=== PATIENT | female | born 1975 | race Caucasian/White ===

== ENCOUNTER → 2017-12-14 10:03 | Outpatient (CLI) | payer BC, SELFPAY ==
--- NOTE | 2017-12-14 10:15 | RAD_ITS ---
STUDY: X-RAY - LEFT TIBIA AND FIBULA REASON FOR EXAM: Female, 42 years old. Sprain of the lower extremity 2 weeks ago. TECHNIQUE: 3 view(s) of the tibia and fibula were obtained. COMPARISON: None. FINDINGS: Normal visualized tibia. Normal visualized fibula. The soft tissue structures are unremarkable. RAD/Tibia & Fibula 2 Views IMPRESSION: No significant abnormality. Electronically Signed: Jacky Mcguire MD at 16:51 EST , Service support ,
== END ==
PROVIDERS: Family Provider Student in an Organized Health Care Education/Training Program; PCP Student in an Organized Health Care Education/Training Program; Visit Provider Podiatrist
DX: S82.832A Other fracture of upper and lower end of left fibula, initial encounter for closed fracture (principal); X58.XXXA Exposure to other specified factors, initial encounter; Y93.9 Activity, unspecified; Y92.9 Unspecified place or not applicable; Y99.9 Unspecified external cause status
CPT/HCPCS: 73590

== ENCOUNTER → 2018-01-30 17:47 | Outpatient (CLI) | payer BC, SELFPAY ==
--- NOTE | 2018-01-30 18:12 | MRI_ITS ---
STUDY: MRI LEFT ANKLE WITHOUT CONTRAST REASON FOR EXAM: Female, 43 years old. Ankle sprain 3 months ago with persistent pain. TECHNIQUE: Standardized fat and water weighted pulse sequences were obtained in all 3 orthogonal planes. COMPARISON: None. FINDINGS: Normal subcutis adipose space. Normal posterior tibialis tendon. Normal flexor digitorum longus tendon. Normal flexor hallucis longus tendon. Normal peroneus longus and brevis tendons. Normal tibialis anterior tendon. Normal extensor hallucis longus tendon. Normal extensor digitorum longus tendons. Normal Achilles tendon and teno-osseous insertion. Normal plantar fascia. Normal plantar calcaneal tubercles. Normal intrinsic muscles of the rearfoot. Normal distal tibiofibular syndesmotic ligamentous complex. Normal lateral ligamentous complex. Normal subtalar ligaments and sinus tarsi. Normal deltoid ligamentous complexes. There is a joint effusion of the tibiotalar articulation with capsular distension. There is abnormal signal within the medial talus suggesting sequela of bone contusion. The talar dome is within normal limits. There appears to be abnormal signal within the anterior calcaneus and the posterior cuboid also probably related to small contusions. The tarsal bones otherwise have a normal appearance. Visualized metatarsals have a grossly normal appearance. Normal subtalar articulations. Normal talonavicular articulation. Normal calcaneocuboid articulation. Normal navicular-cuneiform articulations. MRI/Lower Ext Joint Only (Routine) IMPRESSION: Abnormal signal within the lateral talus, anterior calcaneus and posterior cuboid suggest sequela of bone contusions. Electronically Signed: April Valadez MD at 9:15 EDT , Service support ,
== END ==
PROVIDERS: Family Provider Student in an Organized Health Care Education/Training Program; PCP Student in an Organized Health Care Education/Training Program; Visit Provider Podiatrist
DX: M25.373 Other instability, unspecified ankle (principal); M25.579 Pain in unspecified ankle and joints of unspecified foot; M93.279 Osteochondritis dissecans, unspecified ankle and joints of foot
CPT/HCPCS: 73721

== ENCOUNTER 2018-02-13 17:30 | Outpatient (RCR) | payer BC, SELFPAY ==
--- NOTE | 2018-01-23 19:00 | HP.PTEVAL ---
Patient's Visit Information SAAD VILLAFANA is a 43 year old F referred to Physical Therapy by EVELIO Alberts with a diagnosis of L ankle instability, sinus tarsitis, anterior impingement of the ankle. Date of Evaluation: 01/23/18 Physical Therapist: Winsome King - Visit Plan Frequency: 2-3x /Week Duration: 6 Weeks Plan: 2-3X/ week for 4-6 weeks for L ankle stretching, strengthing, gait training, balance and proprioception with HEP and modalities PRN. (possible compression dressing) - Subjective Subjective: Pt reports that the end of Oct she missed a step and down she went and sprained it pretty well. It was black and blue and had a knot on the side of it. She was in a Cam walker and she has abrace that she takes off at the end of the day because it drives her nuts because it is rubbing and her foot starts to swell. Pt is having an MRI next week because it is still swelling. 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 They also think she did something to her knee so she is going to [facility] for that. He knee starts to bother her if she keeps it propped up too long. SHe can not walk long distances. She tries to get out of grocery as fast as she can because she is limping when it is done. Pt is on a weightloss program but she can not walk a lot right now. She is not having N&T as a rule. She is doing the ABC's, she is doing gastroc stretches and her band is now tied into knots. She walks stairs with a handrail. She sleeps good unless it is kicked. - Pain L ankle pain Pain Intensity (Out of 10): 3 Pain Intensity Range: 8 - Objective L: 5 degrees DF and 40 degrees PF, 7 INV and 7 EV. R: 4 degrees DF, 65 degrees PF, 27 degrees INV, 9 degrees EV. L ankle MMT: DF 3+/5, PF 4-/5, Ev 4/5, INV 3+/5. R ankle MMT: 4+/5 all planes (DF, PF, INV, EV). Gait: decrease stance time on the L ankle with B forefoot abd. Tight gastroc B. Pt is able to heel and toe raise but decreased ROM and increased pain. L ankle girth meansurements (med to lat mal, figure 8, met heads): 25.2cm, 63.1cm,25cm. and R 24.3 cm, 52 cm and 21.5 cm - Goals Goal 1:: I HEP Goal Time Frame: 4-6 Weeks Goal 2:: Walk without an antalgic gait Goal Time Frame: 4-6 Weeks Goal 3:: Increas L ankle strength to 4+/5 all planes Goal Time Frame: 4-6 Weeks - Rehabilitation Potential Rehabilitation Potential: Good - Anticipated Interventions Patient/Client Instruction: Educate patient on: Condition, Plan of Care For the Purpose of:: To decrease pain, To decrease swelling/inflammation, To increase ROM, To improve nutrient delivery to tissue, To increase oxygenation perfusion, To improve muscle performance and motor function, To improve ability to perform ADL's, To increase tolerance to activity/condition/position, To decrease level of supervision to perform tasks, To improve ability of physical actions for home/community/work/leisure, To improve gait and locomotor functions, To improve health of tissue, To decrease soft tissue restriction, To increase flexibility/ROM, To improve balance Therapeutic Exercise to Include: Strength training, Balance training, Flexibilty training, Passive ROM, Active ROM For the Purpose of:: To decrease pain, To decrease swelling/inflammation, To increase ROM, To improve nutrient delivery to tissue, To improve muscle performance and motor function, To improve ability to perform ADL's, To increase tolerance to activity/condition/position, To improve performance and independence with ADL's, To improve ability of physical actions for home/community/work/leisure, To improve gait and locomotor functions, To improve health of tissue, To decrease soft tissue restriction, To increase flexibility/ROM, To improve balance Functional Training to Include: Gait training For the Purpose of:: To improve gait and locomotor functions Manual Therapy Techniques to Include: Passive ROM, Soft tissue mobilization For the Purpose of:: To increase ROM, To improve nutrient delivery to tissue IF ES: Yes Cryotherapy (ice pack, ice massage): Yes Ultrasound (thermal/non thermal): Yes For the Purpose of:: To decrease pain, To decrease swelling/inflammation, To increase ROM, To improve nutrient delivery to tissue, To improve muscle performance and motor function Thank you for the opportunity to evaluate your patient. For Medicare and Medicare HMO plans, please review the plan of care and approve it. It will need to be FAXED BACK to us at [phone] for Medicare purposes. Please let me know if there are questions or concerns regarding this plan of care. Physician Signature: Date:
--- NOTE | 2018-07-03 17:40 | HP.PTDCNRP_ITS ---
HP - Discharge Summary (1) - Patient Information SAAD VILLAFANA was seen in my office for initial evaluation on 01/23/18. The following Plan of Care was established for this patient: Initial Frequency: 2-3x /Week Initial Duration: 6 Weeks - Anticipated Interventions Patient/Client Instruction: Educate patient on: Condition, Plan of Care For the Purpose of:: To decrease pain, To decrease swelling/inflammation, To increase ROM, To improve nutrient delivery to tissue, To increase oxygenation perfusion, To improve muscle performance and motor function, To improve ability to perform ADL's, To increase tolerance to activity/condition/position, To decrease level of supervision to perform tasks, To improve ability of physical actions for home/community/work/leisure, To improve gait and locomotor functions , To improve health of tissue, To decrease soft tissue restriction, To increase flexibility/ROM, To improve balance Therapeutic Exercise to Include: Strength training, Balance training, Flexibilty training, Passive ROM, Active ROM For the Purpose of:: To decrease pain, To decrease swelling/inflammation, To increase ROM, To improve nutrient delivery to tissue, To improve muscle performance and motor function, To improve ability to perform ADL's, To increase tolerance to activity/condition/position, To improve performance and independence with ADL's, To improve ability of physical actions for home/ community/work/leisure, To improve gait and locomotor functions, To improve health of tissue, To decrease soft tissue restriction, To increase flexibility/ ROM, To improve balance Functional Training to Include: Gait training For the Purpose of:: To improve gait and locomotor functions Manual Therapy Techniques to Include: Passive ROM, Soft tissue mobilization For the Purpose of:: To increase ROM, To improve nutrient delivery to tissue IF ES: Yes Cryotherapy (ice pack, ice massage): Yes Ultrasound (thermal/non thermal): Yes For the Purpose of:: To decrease pain, To decrease swelling/inflammation, To increase ROM, To improve nutrient delivery to tissue, To improve muscle performance and motor function This patient was last seen in our office 02/13/18. Pertinent comments regarding their Physical therapy will appear below: DC PT as pt did not reschedule. At this point I will be discontinuing this patient from physical therapy. I would be happy to see this patient again in the future if found appropriate by the physician. Thank you! Winsome King
== END 2018-02-13 19:00 | disposition home or self-care (01) ==
LOC: PT 17:30
PROVIDERS: Family Provider Student in an Organized Health Care Education/Training Program; PCP Student in an Organized Health Care Education/Training Program; Visit Provider Podiatrist
DX: M25.372 Other instability, left ankle (principal); M25.572 Pain in left ankle and joints of left foot; G57.02 Lesion of sciatic nerve, left lower limb; M25.872 Other specified joint disorders, left ankle and foot
CPT/HCPCS: 97110; 97161

== ENCOUNTER → 2018-09-23 13:23 | Outpatient (CLI) | payer BC, SELFPAY ==
--- NOTE | 2018-09-23 13:34 | MRI_ITS ---
STUDY: MRI RIGHT ANKLE WITHOUT CONTRAST REASON FOR EXAM: Female, 43 years old. Pain. TECHNIQUE: Standardized fat and water weighted pulse sequences were obtained in all 3 orthogonal planes. COMPARISON: None. FINDINGS: Normal subcutis adipose space. Normal posterior tibialis tendon. Normal flexor digitorum longus tendon. Normal flexor hallucis longus tendon. Normal peroneus longus and brevis tendons. Normal tibialis anterior tendon. Normal extensor hallucis longus tendon. Normal extensor digitorum longus tendons. Normal Achilles tendon and teno-osseous insertion. There is a plantar fasciitis with plantar fascial thickening, fascial edema, and partial tear, series 9 image 08/10. There is a plantar calcaneal spur with cancellous marrow edema consistent with a marrow stress phenomena. Normal intrinsic muscles of the rearfoot. Normal distal tibiofibular syndesmotic ligamentous complex. Normal lateral ligamentous complex. Normal subtalar ligaments and sinus tarsi. Normal deltoid ligamentous complexes. Normal plantar calcaneonavicular (spring) ligament. Normal tibiotalar articulation. Normal talar dome. Normal subtalar articulations. Normal talonavicular articulation. Normal calcaneocuboid articulation. Normal navicular-cuneiform articulations. MRI/Lower Ext Joint Only (Routine) IMPRESSION: Planter fasciitis with partial tearing. There is heel spur with edema and stress injury of the calcaneus. Electronically Signed: Garth Mccormick MD at 16:04 EST , Service support ,
== END ==
PROVIDERS: Family Provider Student in an Organized Health Care Education/Training Program; PCP Student in an Organized Health Care Education/Training Program; Referring Provider Podiatrist; Visit Provider Podiatrist
DX: M72.2 Plantar fascial fibromatosis (principal); M79.671 Pain in right foot; M84.374A Stress fracture, right foot, initial encounter for fracture
CPT/HCPCS: 73721

== ENCOUNTER → 2019-01-17 17:38 | Outpatient (CLI) | payer BC, SELFPAY ==
[2019-01-22 11:10] LABS: HPV HC, High Risk Negative (Negative)
== END ==
PROVIDERS: Family Provider Student in an Organized Health Care Education/Training Program; PCP Student in an Organized Health Care Education/Training Program; Referring Provider Obstetrics & Gynecology; Visit Provider Obstetrics & Gynecology
DX: Z12.4 Encounter for screening for malignant neoplasm of cervix (principal); N39.0 Urinary tract infection, site not specified
CPT/HCPCS: 87086; 87088; 87624; 88175; G0145

== ENCOUNTER → 2019-02-28 15:12 | Outpatient (CLI) | payer BC, SELFPAY ==
--- NOTE | 2019-02-28 15:40 | BI_ITS ---
MAMMOGRAPHY - BILATERAL SCREENING REASON FOR EXAM: Female, 44 years old. Routine annual screening examination. PERTINENT HISTORY: Non-contributory. Six-month history of pain in the lateral deep aspect of the left breast. TECHNIQUE: Digital bilateral breast kierra (3D mammographic acquisition) in the CC and MLO projections. 2-D mediolateral oblique (MLO) and craniocaudad (CC) views of both breasts were obtained. CAD: Full Field Digital Mammography with Computer Added Detection was performed. COMPARISON: Comparison is made with prior study dated June 19, 2017 and October 12, 2014. FINDINGS: Breast Composition: The breasts are heterogeneously dense, which may obscure small masses. There are no dominant masses or suspicious calcifications. Stable small bilateral axillary lymph nodes. No other significant abnormalities are identified. There has been no significant change since the prior study. BI/SCREENING MAMM (CAD), BILAT IMPRESSION: Stable bilateral screening mammogram. Yearly follow-up mammogram recommended. (A) ASSESSMENT CATEGORY: BIRADS Category 2: Benign. A letter regarding these results will be sent to the patient by the facility within 30 days. Approximately 10% of breast cancers are not detected by mammography. A normal mammogram should not delay biopsy of a clinically suspicious abnormality. [id number] Electronically Signed: Ayush Winters, at 8:32 EDT , Service support ,
== END ==
PROVIDERS: Family Provider Student in an Organized Health Care Education/Training Program; PCP Student in an Organized Health Care Education/Training Program; Referring Provider Obstetrics & Gynecology; Visit Provider Obstetrics & Gynecology
DX: Z12.31 Encounter for screening mammogram for malignant neoplasm of breast (principal)
CPT/HCPCS: 77063; 77067

== ENCOUNTER → 2019-07-23 09:59 | Outpatient (CLI) | payer BC, SELFPAY ==
[2019-07-23 11:06] LABS: EXAGEN MAILED SPECIMEN
[2019-07-23 12:21] LABS: Absolute Lymphocyte Count 1.64 X10^3/uL (0.83-4.51); Absolute Neutrophil Count 3.7 X10^3/uL (2.0-7.7); Basophil# 0.04 X10^3/uL; Basophil% 0.7 % (0-1); Color, Urine Yellow (Yellow); Eosinophil# 0.12 X10^3/uL; Glucose, Dipstick Normal (Normal); Hematocrit 38.1 % (37-47); Hemoglobin 12.4 g/dL (12.0-15.0); Ketone-Dipstick Negative (Negative); Leukocyte Esterase-Dipstick Negative /ul (Negative); Lymphocyte # 1.64 X10^3/ul (4.0); Lymphocyte % 27.8 % (19-41); Mean Corp Hgb Conc 32.5 g/dL (32-36); Mean Corpuscular Hgb 29.3 pg (27.0-32.0); Mean Corpuscular Volume 90.1 fL (81-99); Mean Platelet Vol. 10.4 fl (6.2-12.0); Monocyte% 6.8 % (0-10); NRBC Flagged by Analyzer 0 % (0-5); Neutrophil # 3.65 X10^3/uL (2.7-7.7); Neutrophil % 61.9 % (47-70); Nitrite-Dipstick Negative (Negative); Occult Blood-Urine Negative /ul (Negative); Platelet Count 250 K/mm3 (150-450); Protein-Dipstick Negative (Negative); RBC Distribution Width CV 13.1 % (11.6-14.6); RBC Distribution Width SD 42.5 fl (35.1-43.9); Red Blood Count 4.23 M/mm3 (4.2-5.4); Specific Gravity, Urine 1.015 (1.002-1.030); Urine Bilirubin Dipstick Negative (Negative); Urine Clarity Clear (Clear); Urine Urobilinogen Normal (Normal); White Blood Count 5.9 K/mm3 (4.4-11.0)
[2019-07-23 12:41] LABS: Protein, Urine (Random) 24.3 mg/dL (<11.9); Protein:Creat Ratio 176 mg/g CRE (0-200)
[2019-07-23 13:13] LABS: ALB/GLOB Ratio 1.1 RATIO (0.9-2.4); AST(SGOT) 14 U/L (15-37); Alanine Aminotransfer ALT/SGPT 27 U/L (13-56); Albumin, Serum 3.7 g/dL (3.2-5.0); Alkaline Phosphatase 155 U/L (45-117); Anion Gap 8 (5-15); BUN 9 mg/dL (7-18); BUN/Creat Ratio 9.7 RATIO (10-20); Calcium,Total 8.4 mg/dL (8.5-10.1); Chloride 110 mmol/L (98-107); Creatinine, Serum 0.93 mg/dL (0.55-1.02); EST Glomerular Filtration Rate 69 mL/min (>60); Est Glom Filt Rate - Afr Amer 83 mL/min (>60); Globulin 3.4 g/dL (2.2-4.2); Glucose 117 mg/dL (74-106); Potassium 3.8 mmol/L (3.5-5.1); Protein, Total 7.1 g/dL (6.4-8.2); Sodium Level 140 mmol/L (136-145)
[2019-07-23 14:10] LABS: Hepatitis B Surface Antibody Reactive; Hepatitis B Surface Antigen Non-Reactive (Nonreactive); Hepatitis C Antibody Non-Reactive (Nonreactive)
[2019-07-24 12:24] LABS: Hepatitis B Core AB IgM Negative (Negative)
== END ==
PROVIDERS: Family Provider Student in an Organized Health Care Education/Training Program; PCP Student in an Organized Health Care Education/Training Program; Referring Provider Internal Medicine Rheumatology; Visit Provider Internal Medicine Rheumatology
DX: M06.4 Inflammatory polyarthropathy (principal); R76.8 Other specified abnormal immunological findings in serum; M79.7 Fibromyalgia; E05.00 Thyrotoxicosis with diffuse goiter without thyrotoxic crisis or storm
CPT/HCPCS: 36415; 80053; 81002; 82570; 84156; 85025; 86705; 86706; 86803; 87340

== ENCOUNTER → 2020-04-14 09:40 | Outpatient (CLI) | payer BC, SELFPAY ==
[2020-04-14 12:38] LABS: Absolute Neutrophil Count 3.2 X10^3/uL (2.0-7.7); Basophil# 0.04 X10^3/uL; Basophil% 0.8 % (0-1); Eosinophil# 0.13 X10^3/uL; Eosinophils% 2.5 % (0-5); Hematocrit 38.6 % (37-47); Hemoglobin 12.4 g/dL (12.0-15.0); Mean Corp Hgb Conc 32.1 g/dL (32-36); Mean Corpuscular Hgb 29.2 pg (27.0-32.0); Mean Platelet Vol. 10.6 fl (6.2-12.0); Monocyte# 0.43 X10^3/uL; Monocyte% 8.3 % (0-10); NRBC Flagged by Analyzer 0 % (0-5); Neutrophil # 3.23 X10^3/uL (2.7-7.7); Neutrophil % 62.2 % (47-70); Platelet Count 248 K/mm3 (150-450); RBC Distribution Width CV 13.2 % (11.6-14.6); RBC Distribution Width SD 43.6 fl (35.1-43.9); Red Blood Count 4.24 M/mm3 (4.2-5.4); White Blood Count 5.2 K/mm3 (4.4-11.0)
[2020-04-14 13:05] LABS: AST(SGOT) 14 U/L (15-37); Alanine Aminotransfer ALT/SGPT 19 U/L (13-56); Albumin, Serum 3.5 g/dL (3.2-5.0); Alkaline Phosphatase 129 U/L (45-117); Anion Gap 6 (5-15); BUN 7 mg/dL (7-18); Calcium,Total 8.3 mg/dL (8.5-10.1); Chloride 114 mmol/L (98-107); Creatinine, Serum 0.88 mg/dL (0.55-1.02); EST Glomerular Filtration Rate 73 mL/min (>60); Est Glom Filt Rate - Afr Amer 89 mL/min (>60); Globulin 3.4 g/dL (2.2-4.2); Glucose 95 mg/dL (74-106); Potassium 3.8 mmol/L (3.5-5.1); Protein, Total 6.9 g/dL (6.4-8.2); Sodium Level 141 mmol/L (136-145)
== END ==
PROVIDERS: PCP Student in an Organized Health Care Education/Training Program; Referring Provider Internal Medicine Rheumatology; Visit Provider Internal Medicine Rheumatology
DX: M06.4 Inflammatory polyarthropathy (principal); R76.8 Other specified abnormal immunological findings in serum; M79.7 Fibromyalgia; E05.00 Thyrotoxicosis with diffuse goiter without thyrotoxic crisis or storm; F41.9 Anxiety disorder, unspecified; F32.9 Major depressive disorder, single episode, unspecified; G43.909 Migraine, unspecified, not intractable, without status migrainosus
CPT/HCPCS: 36415; 80053; 85025

== ENCOUNTER → 2020-10-08 09:58 | Outpatient (CLI) | payer BC, SELFPAY ==
[2020-10-08 12:13] LABS: Absolute Lymphocyte Count 1.17 X10^3/uL (0.83-4.51); Absolute Neutrophil Count 2.8 X10^3/uL (2.0-7.7); Basophil# 0.03 X10^3/uL; Basophil% 0.7 % (0-1); Eosinophil# 0.09 X10^3/uL; Hematocrit 39.4 % (37-47); Hemoglobin 12.6 g/dL (12.0-15.0); Lymphocyte # 1.17 X10^3/ul (4.0); Lymphocyte % 25.9 % (19-41); Mean Corpuscular Hgb 28.4 pg (27.0-32.0); Mean Corpuscular Volume 88.7 fL (81-99); Mean Platelet Vol. 10.5 fl (6.2-12.0); Monocyte# 0.39 X10^3/uL; Monocyte% 8.6 % (0-10); NRBC Flagged by Analyzer 0 % (0-5); Neutrophil # 2.79 X10^3/uL (2.7-7.7); Neutrophil % 61.9 % (47-70); Platelet Count 242 K/mm3 (150-450); RBC Distribution Width CV 12.9 % (11.6-14.6); RBC Distribution Width SD 41.8 fl (35.1-43.9); Red Blood Count 4.44 M/mm3 (4.2-5.4); White Blood Count 4.5 K/mm3 (4.4-11.0)
[2020-10-08 12:38] LABS: ALB/GLOB Ratio 1.1 RATIO (0.9-2.4); AST(SGOT) 10 U/L (15-37); Alanine Aminotransfer ALT/SGPT 23 U/L (13-56); Albumin, Serum 3.5 g/dL (3.2-5.0); Alkaline Phosphatase 137 U/L (45-117); Anion Gap 5 (5-15); BUN 6 mg/dL (7-18); BUN/Creat Ratio 7.6 RATIO (10-20); Chloride 107 mmol/L (98-107); Creatinine, Serum 0.79 mg/dL (0.55-1.02); EST Glomerular Filtration Rate 83 mL/min (>60); Est Glom Filt Rate - Afr Amer 100 mL/min (>60); Globulin 3.3 g/dL (2.2-4.2); Glucose 86 mg/dL (74-106); Potassium 3.5 mmol/L (3.5-5.1); Protein, Total 6.8 g/dL (6.4-8.2); Sodium Level 139 mmol/L (136-145)
== END ==
PROVIDERS: Referring Provider Internal Medicine Rheumatology; Visit Provider Internal Medicine Rheumatology
DX: M06.4 Inflammatory polyarthropathy (principal); M79.7 Fibromyalgia; E05.00 Thyrotoxicosis with diffuse goiter without thyrotoxic crisis or storm; F32.9 Major depressive disorder, single episode, unspecified; F41.9 Anxiety disorder, unspecified; G43.909 Migraine, unspecified, not intractable, without status migrainosus; R76.8 Other specified abnormal immunological findings in serum
CPT/HCPCS: 36415; 80053; 85025

== ENCOUNTER → 2020-12-27 10:16 | Outpatient (CLI) | payer BC, SELFPAY ==
--- NOTE | 2020-12-27 10:19 | BI_ITS ---
MAMMOGRAPHY - BILATERAL SCREENING REASON FOR EXAM: Female, 45 years old. Routine annual screening examination. PERTINENT HISTORY: NO FAM HX GAINED 20# NO SX PT C/O LT LATERAL DEEP PAIN X 1 YR- UNKNOWN INJURY TECHNIQUE: Digital bilateral breast keisha (3D mammographic acquisition) in the CC and MLO projections. 2-D mediolateral oblique (MLO) and craniocaudad (CC) views of both breasts were obtained. CAD: Full Field Digital Mammography with Computer Added Detection was performed. COMPARISON: 06/19/2017 and 10/12/2014 FINDINGS: Breast Composition: The breasts are heterogeneously dense, which may obscure small masses. There are no dominant masses or suspicious calcifications. No other significant abnormalities are identified. BI/SCRN MAMM (CAD)W/KEISHA BILAT IMPRESSION: Stable bilateral screening mammogram. Yearly follow-up mammogram recommended. (A) ASSESSMENT CATEGORY: BIRADS Category 2: Benign. A letter regarding these results will be sent to the patient by the facility within 30 days. Approximately 10% of breast cancers are not detected by mammography. A normal mammogram should not delay biopsy of a clinically suspicious abnormality. [id number] Electronically Signed: Chela Bennett MD at 15:30 EST Tel , Service support ,
== END ==
PROVIDERS: PCP Student in an Organized Health Care Education/Training Program; Referring Provider Obstetrics & Gynecology; Visit Provider Obstetrics & Gynecology
DX: Z12.31 Encounter for screening mammogram for malignant neoplasm of breast (principal)
CPT/HCPCS: 77063; 77067

== ENCOUNTER 2020-12-31 08:42 | Outpatient (RCR) | payer BC, SELFPAY ==
[2020-12-31] MEDS: COVID-19 VACC, MRNA(PFIZER)/PF 30 MCG/0.3 ML SYRINGE IM (16:39)
[2021-01-21] MEDS: COVID-19 VACC, MRNA(PFIZER)/PF 30 MCG/0.3 ML SYRINGE IM (17:38)
== END 2020-12-31 23:59 ==
LOC: IMMUN 08:42
PROVIDERS: PCP Student in an Organized Health Care Education/Training Program; Visit Provider Family Medicine
DX: Z23 Encounter for immunization (principal)
CPT/HCPCS: 0001A; 0002A; 91300

== ENCOUNTER → 2021-02-23 | Outpatient (CLI) | payer BC, SELFPAY | END | disposition home or self-care (01) | LOC: LABSPEC 13:54 | PROVIDERS: PCP Student in an Organized Health Care Education/Training Program; Visit Provider Obstetrics & Gynecology | DX: R30.0 Dysuria (principal) | CPT/HCPCS: 87086; 87088; 87186 ==

== ENCOUNTER → 2021-05-17 08:32 | Outpatient (CLI) | payer BC, SELFPAY ==
[2021-05-17 10:31] LABS: Absolute Lymphocyte Count 1.73 X10^3/uL (0.83-4.51); Absolute Neutrophil Count 4.3 X10^3/uL (2.0-7.7); Basophil# 0.03 X10^3/uL; Basophil% 0.5 % (0-1); Eosinophil# 0.06 X10^3/uL; Eosinophils% 0.9 % (0-5); Hemoglobin 12.6 g/dL (12.0-15.0); Lymphocyte # 1.73 X10^3/ul (0.83-4.51); Lymphocyte % 26.2 % (19-41); Mean Corp Hgb Conc 33.2 g/dL (32-36); Mean Corpuscular Hgb 29.6 pg (27.0-32.0); Mean Corpuscular Volume 89.2 fL (81-99); Mean Platelet Vol. 10.7 fl (6.2-12.0); Monocyte# 0.48 X10^3/uL; Monocyte% 7.3 % (0-10); NRBC Flagged by Analyzer 0 % (0-5); Neutrophil # 4.25 X10^3/uL (2.7-7.7); Neutrophil % 64.3 % (47-70); Platelet Count 257 K/mm3 (150-450); RBC Distribution Width CV 12.8 % (11.6-14.6); RBC Distribution Width SD 41.8 fl (35.1-43.9); Red Blood Count 4.26 M/mm3 (4.2-5.4); White Blood Count 6.6 K/mm3 (4.4-11.0)
[2021-05-17 10:47] LABS: AST(SGOT) 20 U/L (15-37); Alanine Aminotransfer ALT/SGPT 27 U/L (13-56); Albumin, Serum 3.6 g/dL (3.2-5.0); Alkaline Phosphatase 137 U/L (45-117); Anion Gap 4 (5-15); BUN 8 mg/dL (7-18); BUN/Creat Ratio 10.8 RATIO (10-20); Calcium,Total 8.3 mg/dL (8.5-10.1); Chloride 107 mmol/L (98-107); Creatinine, Serum 0.74 mg/dL (0.55-1.02); EST Glomerular Filtration Rate 89 mL/min (>60); Est Glom Filt Rate - Afr Amer 107 mL/min (>60); Globulin 3.5 g/dL (2.2-4.2); Glucose 100 mg/dL (74-106); Potassium 3.7 mmol/L (3.5-5.1); Protein, Total 7.1 g/dL (6.4-8.2); Sodium Level 138 mmol/L (136-145)
== END ==
PROVIDERS: PCP Student in an Organized Health Care Education/Training Program; Referring Provider Internal Medicine Rheumatology; Visit Provider Internal Medicine Rheumatology
DX: M06.4 Inflammatory polyarthropathy (principal); R76.8 Other specified abnormal immunological findings in serum; M79.7 Fibromyalgia; E05.00 Thyrotoxicosis with diffuse goiter without thyrotoxic crisis or storm; F32.9 Major depressive disorder, single episode, unspecified; F41.9 Anxiety disorder, unspecified; G43.909 Migraine, unspecified, not intractable, without status migrainosus; Z79.899 Other long term (current) drug therapy
CPT/HCPCS: 36415; 80053; 85025

== ENCOUNTER → 2021-08-15 13:27 | Outpatient (CLI) | payer BC, SELFPAY ==
[2021-08-15 15:29] LABS: Absolute Lymphocyte Count 2.12 X10^3/uL (0.83-4.51); Absolute Neutrophil Count 3.5 X10^3/uL (2.0-7.7); Basophil# 0.05 X10^3/uL; Basophil% 0.8 % (0-1); Eosinophil# 0.12 X10^3/uL; Eosinophils% 1.9 % (0-5); Hematocrit 38.6 % (37-47); Hemoglobin 12.9 g/dL (12.0-15.0); Lymphocyte # 2.12 X10^3/ul (0.83-4.51); Lymphocyte % 33.1 % (19-41); Mean Corp Hgb Conc 33.4 g/dL (32-36); Mean Corpuscular Hgb 30.1 pg (27.0-32.0); Mean Platelet Vol. 10.5 fl (6.2-12.0); Monocyte# 0.58 X10^3/uL; NRBC Flagged by Analyzer 0 % (0-5); Neutrophil % 54.6 % (47-70); Platelet Count 260 K/mm3 (150-450); RBC Distribution Width CV 13.3 % (11.6-14.6); RBC Distribution Width SD 43.6 fl (35.1-43.9); Red Blood Count 4.29 M/mm3 (4.2-5.4); White Blood Count 6.4 K/mm3 (4.4-11.0)
[2021-08-15 15:54] LABS: AST(SGOT) 12 U/L (15-37); Alanine Aminotransfer ALT/SGPT 23 U/L (13-56); Albumin, Serum 3.5 g/dL (3.2-5.0); Alkaline Phosphatase 140 U/L (45-117); Anion Gap 8 (5-15); BUN 10 mg/dL (7-18); BUN/Creat Ratio 10.9 RATIO (10-20); Calcium,Total 8.1 mg/dL (8.5-10.1); Chloride 111 mmol/L (98-107); Creatinine, Serum 0.92 mg/dL (0.55-1.02); EST Glomerular Filtration Rate 69 mL/min (>60); Est Glom Filt Rate - Afr Amer 84 mL/min (>60); Globulin 3.6 g/dL (2.2-4.2); Glucose 84 mg/dL (74-106); Potassium 3.3 mmol/L (3.5-5.1); Protein, Total 7.1 g/dL (6.4-8.2); Sodium Level 140 mmol/L (136-145)
== END ==
PROVIDERS: PCP Student in an Organized Health Care Education/Training Program; Referring Provider Internal Medicine Rheumatology; Visit Provider Internal Medicine Rheumatology
DX: M06.4 Inflammatory polyarthropathy (principal); M79.7 Fibromyalgia; E05.00 Thyrotoxicosis with diffuse goiter without thyrotoxic crisis or storm; F32.A Depression, unspecified; F41.9 Anxiety disorder, unspecified; G43.909 Migraine, unspecified, not intractable, without status migrainosus; R76.8 Other specified abnormal immunological findings in serum; Z79.899 Other long term (current) drug therapy
CPT/HCPCS: 36415; 80053; 85025

== ENCOUNTER → 2021-09-26 13:26 | Outpatient (CLI) | payer BC, SELFPAY ==
[2021-09-26 15:01] LABS: Absolute Lymphocyte Count 1.75 X10^3/uL (0.83-4.51); Absolute Neutrophil Count 4.1 X10^3/uL (2.0-7.7); Basophil# 0.04 X10^3/uL; Basophil% 0.6 % (0-1); Eosinophil# 0.13 X10^3/uL; Hematocrit 35.7 % (37-47); Hemoglobin 12.1 g/dL (12.0-15.0); Lymphocyte # 1.75 X10^3/ul (0.83-4.51); Lymphocyte % 26.4 % (19-41); Mean Corp Hgb Conc 33.9 g/dL (32-36); Mean Corpuscular Hgb 30.3 pg (27.0-32.0); Mean Corpuscular Volume 89.5 fL (81-99); Mean Platelet Vol. 10.2 fl (6.2-12.0); NRBC Flagged by Analyzer 0 % (0-5); Neutrophil # 4.05 X10^3/uL (2.7-7.7); Neutrophil % 60.9 % (47-70); Platelet Count 247 K/mm3 (150-450); RBC Distribution Width SD 45.1 fl (35.1-43.9); Red Blood Count 3.99 M/mm3 (4.2-5.4); White Blood Count 6.6 K/mm3 (4.4-11.0)
[2021-09-26 15:52] LABS: AST(SGOT) 12 U/L (15-37); Alanine Aminotransfer ALT/SGPT 21 U/L (13-56); Albumin, Serum 3.6 g/dL (3.2-5.0); Alkaline Phosphatase 142 U/L (45-117); Anion Gap 10 (5-15); BUN 9 mg/dL (7-18); BUN/Creat Ratio 11.7 RATIO (10-20); Calcium,Total 8.4 mg/dL (8.5-10.1); Chloride 110 mmol/L (98-107); Creatinine, Serum 0.77 mg/dL (0.55-1.02); EST Glomerular Filtration Rate 85 mL/min (>60); Est Glom Filt Rate - Afr Amer 103 mL/min (>60); Globulin 3.6 g/dL (2.2-4.2); Glucose 81 mg/dL (74-106); Potassium 3.3 mmol/L (3.5-5.1); Protein, Total 7.2 g/dL (6.4-8.2); Sodium Level 141 mmol/L (136-145)
== END ==
PROVIDERS: PCP Student in an Organized Health Care Education/Training Program; Referring Provider Internal Medicine Rheumatology; Visit Provider Internal Medicine Rheumatology
DX: M06.4 Inflammatory polyarthropathy (principal); R76.8 Other specified abnormal immunological findings in serum; M79.7 Fibromyalgia; E05.00 Thyrotoxicosis with diffuse goiter without thyrotoxic crisis or storm; F41.9 Anxiety disorder, unspecified; F32.9 Major depressive disorder, single episode, unspecified; G43.909 Migraine, unspecified, not intractable, without status migrainosus; Z79.899 Other long term (current) drug therapy
CPT/HCPCS: 36415; 80053; 85025

== ENCOUNTER → 2021-10-11 12:43 | Outpatient (CLI) | payer BC, SELFPAY ==
[2021-10-13 21:06] LABS: QNTFERON TB Mitogen Value > 10.00 IU/mL (.); QNTFERON TB Nil Value 0.01 IU/mL (.); QNTFERON TB1+ Ag Value 0.03 IU/mL (.); QNTFERON TB2+ Ag Value 0.02 IU/mL (.)
[2021-10-14 09:25] LABS: QNTIFERON TB Positive Criteria Negative (Negative)
== END ==
PROVIDERS: PCP Student in an Organized Health Care Education/Training Program; Referring Provider Internal Medicine Pulmonary Disease; Visit Provider Internal Medicine Pulmonary Disease
DX: R06.00 Dyspnea, unspecified (principal)
CPT/HCPCS: 36415; 86480

== ENCOUNTER 2021-11-29 10:27 | Outpatient (CLI) | payer BC, SELFPAY ==
[2021-11-29 12:14] LABS: Absolute Neutrophil Count 3.9 X10^3/uL (2.0-7.7); Basophil# 0.04 X10^3/uL; Basophil% 0.7 % (0-1); Eosinophil# 0.13 X10^3/uL; Eosinophils% 2.3 % (0-5); Hematocrit 36.5 % (37-47); Hemoglobin 12.2 g/dL (12.0-15.0); Lymphocyte % 22.8 % (19-41); Mean Corp Hgb Conc 33.4 g/dL (32-36); Mean Corpuscular Hgb 30.5 pg (27.0-32.0); Mean Corpuscular Volume 91.3 fL (81-99); Mean Platelet Vol. 10.6 fl (6.2-12.0); Monocyte# 0.27 X10^3/uL; Monocyte% 4.7 % (0-10); NRBC Flagged by Analyzer 0 % (0-5); Neutrophil # 3.92 X10^3/uL (2.7-7.7); Platelet Count 246 K/mm3 (150-450); RBC Distribution Width CV 12.8 % (11.6-14.6); RBC Distribution Width SD 42.4 fl (35.1-43.9); White Blood Count 5.7 K/mm3 (4.4-11.0)
[2021-11-29 12:59] LABS: ALB/GLOB Ratio 0.9 RATIO (0.9-2.4); AST(SGOT) 12 U/L (15-37); Alanine Aminotransfer ALT/SGPT 20 U/L (13-56); Albumin, Serum 3.5 g/dL (3.2-5.0); Alkaline Phosphatase 155 U/L (45-117); Anion Gap 8 (5-15); BUN 9 mg/dL (7-18); BUN/Creat Ratio 10.9 RATIO (10-20); Calcium,Total 8.3 mg/dL (8.5-10.1); Chloride 109 mmol/L (98-107); Creatinine, Serum 0.82 mg/dL (0.55-1.02); EST Glomerular Filtration Rate 78 mL/min (>60); Est Glom Filt Rate - Afr Amer 95 mL/min (>60); Globulin 3.7 g/dL (2.2-4.2); Glucose 75 mg/dL (74-106); Potassium 3.7 mmol/L (3.5-5.1); Protein, Total 7.2 g/dL (6.4-8.2); Sodium Level 139 mmol/L (136-145)
== END 2021-11-29 23:59 | disposition home or self-care (01) ==
PROVIDERS: PCP Student in an Organized Health Care Education/Training Program; Referring Provider Internal Medicine Rheumatology; Visit Provider Internal Medicine Rheumatology
DX: M06.4 Inflammatory polyarthropathy (principal); R76.8 Other specified abnormal immunological findings in serum; M79.7 Fibromyalgia; E05.00 Thyrotoxicosis with diffuse goiter without thyrotoxic crisis or storm; F41.9 Anxiety disorder, unspecified; F32.A Depression, unspecified; G43.909 Migraine, unspecified, not intractable, without status migrainosus; Z79.899 Other long term (current) drug therapy
CPT/HCPCS: 36415; 80053; 85025

== ENCOUNTER → 2022-03-14 | Outpatient (CLI) | payer BC, SELFPAY ==
[2022-03-14 10:19] LABS: Absolute Neutrophil Count 3.6 X10^3/uL (2.0-7.7); Basophil# 0.04 X10^3/uL; Basophil% 0.7 % (0-1); Eosinophil# 0.15 X10^3/uL; Eosinophils% 2.6 % (0-5); Hemoglobin 13.1 g/dL (12.0-15.0); Lymphocyte % 22.7 % (19-41); Mean Corp Hgb Conc 32.8 g/dL (32-36); Mean Corpuscular Hgb 30.3 pg (27.0-32.0); Mean Corpuscular Volume 92.6 fL (81-99); Mean Platelet Vol. 10.6 fl (6.2-12.0); Monocyte# 0.57 X10^3/uL; NRBC Flagged by Analyzer 0 % (0-5); Neutrophil # 3.63 X10^3/uL (2.7-7.7); Neutrophil % 63.5 % (47-70); Platelet Count 221 K/mm3 (150-450); RBC Distribution Width CV 13.2 % (11.6-14.6); RBC Distribution Width SD 44.2 fl (35.1-43.9); Red Blood Count 4.32 M/mm3 (4.2-5.4); White Blood Count 5.7 K/mm3 (4.4-11.0)
[2022-03-14 10:48] LABS: ALB/GLOB Ratio 1.1 RATIO (0.9-2.4); AST(SGOT) 23 U/L (15-37); Alanine Aminotransfer ALT/SGPT 32 U/L (13-56); Albumin, Serum 3.6 g/dL (3.2-5.0); Alkaline Phosphatase 129 U/L (45-117); Anion Gap 7 (5-15); BUN 12 mg/dL (7-18); BUN/Creat Ratio 14.4 RATIO (10-20); Calcium,Total 8.3 mg/dL (8.5-10.1); Chloride 107 mmol/L (98-107); Creatinine, Serum 0.83 mg/dL (0.55-1.02); EST Glomerular Filtration Rate 78 mL/min (>60); Est Glom Filt Rate - Afr Amer 94 mL/min (>60); Globulin 3.4 g/dL (2.2-4.2); Glucose 112 mg/dL (74-106); Potassium 3.7 mmol/L (3.5-5.1); Sodium Level 139 mmol/L (136-145)
== END | disposition home or self-care (01) ==
PROVIDERS: PCP Student in an Organized Health Care Education/Training Program; Referring Provider Internal Medicine Rheumatology; Visit Provider Internal Medicine Rheumatology
DX: M06.4 Inflammatory polyarthropathy (principal); R76.8 Other specified abnormal immunological findings in serum; M77.11 Lateral epicondylitis, right elbow; M79.7 Fibromyalgia; E05.00 Thyrotoxicosis with diffuse goiter without thyrotoxic crisis or storm; F41.9 Anxiety disorder, unspecified; F32.A Depression, unspecified; G43.909 Migraine, unspecified, not intractable, without status migrainosus; Z79.899 Other long term (current) drug therapy
CPT/HCPCS: 36415; 80053; 85025

== ENCOUNTER → 2022-10-11 | Outpatient (CLI) | payer BC, SELFPAY ==
[2022-10-11 12:42] LABS: Absolute Lymphocyte Count 1.36 X10^3/uL (0.83-4.51); Absolute Neutrophil Count 7.4 X10^3/uL (2.0-7.7); Basophil# 0.03 X10^3/uL; Basophil% 0.3 % (0-1); Hematocrit 38.4 % (37-47); Hemoglobin 12.6 g/dL (12.0-15.0); Lymphocyte # 1.36 X10^3/ul (0.83-4.51); Lymphocyte % 14.6 % (19-41); Mean Corp Hgb Conc 32.8 g/dL (32-36); Mean Corpuscular Hgb 29.6 pg (27.0-32.0); Mean Corpuscular Volume 90.1 fL (81-99); Mean Platelet Vol. 10.3 fl (6.2-12.0); Monocyte# 0.42 X10^3/uL; Monocyte% 4.5 % (0-10); NRBC Flagged by Analyzer 0 % (0-5); Neutrophil # 7.42 X10^3/uL (2.7-7.7); Neutrophil % 79.6 % (47-70); Platelet Count 274 K/mm3 (150-450); RBC Distribution Width CV 12.9 % (11.6-14.6); RBC Distribution Width SD 41.9 fl (35.1-43.9); Red Blood Count 4.26 M/mm3 (4.2-5.4); White Blood Count 9.3 K/mm3 (4.4-11.0)
[2022-10-11 13:02] LABS: ALB/GLOB Ratio 0.9 RATIO (0.9-2.4); AST(SGOT) 12 U/L (15-37); Alanine Aminotransfer ALT/SGPT 22 U/L (13-56); Albumin, Serum 3.2 g/dL (3.2-5.0); Alkaline Phosphatase 131 U/L (45-117); Anion Gap 9 (5-15); BUN 7 mg/dL (7-18); BUN/Creat Ratio 9.7 RATIO (10-20); Calcium,Total 8.3 mg/dL (8.5-10.1); Chloride 104 mmol/L (98-107); Creatinine, Serum 0.72 mg/dL (0.55-1.02); EST Glomerular Filtration Rate 91 mL/min (>60); Est Glom Filt Rate - Afr Amer 110 mL/min (>60); Globulin 3.4 g/dL (2.2-4.2); Glucose 93 mg/dL (74-106); Potassium 3.8 mmol/L (3.5-5.1); Protein, Total 6.6 g/dL (6.4-8.2); Sodium Level 138 mmol/L (136-145)
== END | disposition home or self-care (01) ==
LOC: MTLAB 09:47
PROVIDERS: PCP Student in an Organized Health Care Education/Training Program; Referring Provider Internal Medicine Rheumatology; Visit Provider Internal Medicine Rheumatology
DX: M06.4 Inflammatory polyarthropathy (principal); Z79.899 Other long term (current) drug therapy; R76.8 Other specified abnormal immunological findings in serum; M54.10 Radiculopathy, site unspecified; M79.7 Fibromyalgia; E05.00 Thyrotoxicosis with diffuse goiter without thyrotoxic crisis or storm; F41.9 Anxiety disorder, unspecified; F32.9 Major depressive disorder, single episode, unspecified; G43.909 Migraine, unspecified, not intractable, without status migrainosus
CPT/HCPCS: 36415; 80053; 85025

== ENCOUNTER → 2023-01-19 | Outpatient (CLI) | payer BC, SELFPAY ==
--- NOTE | 2023-01-19 10:21 | BI_ITS ---
MAMMOGRAPHY - BILATERAL SCREENING REASON FOR EXAM: Female, 48 years old. Routine annual screening examination. PERTINENT HISTORY: Non-contributory. TECHNIQUE: Digital bilateral breast keisha (3D mammographic acquisition) in the CC and MLO projections. 2-D mediolateral oblique (MLO) and craniocaudad (CC) views of both breasts were obtained. CAD: Full Field Digital Mammography with Computer Added Detection was performed. COMPARISON: Comparison is made with prior study dated December 27, 2020 and February 28, 2019 FINDINGS: Breast Composition: The breasts are heterogeneously dense, which may obscure small masses. There are no dominant masses or suspicious calcifications. No other significant abnormalities are identified. There has been no significant change since the prior study. BI/SCRN MAMM (CAD)W/KEISHA BILAT IMPRESSION: Stable bilateral screening mammogram. Yearly follow-up mammogram recommended. (A) ASSESSMENT CATEGORY: BIRADS Category 1: Negative. A letter regarding these results will be sent to the patient by the facility within 30 days. Approximately 10% of breast cancers are not detected by mammography. A normal mammogram should not delay biopsy of a clinically suspicious abnormality. [id number] Electronically Signed: Ayush Winters MD at 11:09 EDT ,
== END | disposition home or self-care (01) ==
LOC: OPBI 10:19
PROVIDERS: PCP Student in an Organized Health Care Education/Training Program; Referring Provider Obstetrics & Gynecology; Visit Provider Obstetrics & Gynecology
DX: Z12.31 Encounter for screening mammogram for malignant neoplasm of breast (principal)
CPT/HCPCS: 77063; 77067

== ENCOUNTER 2023-01-24 18:39 | Emergency (ER) | payer BC, SELFPAY ==
[2023-01-24 18:51] VITALS: BP 155/86; PULSE 98; RESP 18; TEMP 36.6; O2SAT 96; BMI 36.9
--- NOTE | 2023-01-24 19:05 | RAD_ITS ---
STUDY: X-RAY CHEST REASON FOR EXAM: Female, 48 years old. Right-sided chest pain extending to the back. History of nausea and heartburn. TECHNIQUE: Single AP portable view of the chest. COMPARISON: January 28, 2017. FINDINGS: The lungs are clear and expanded. There is no demonstrated pleural abnormality. Normal size heart. Normal mediastinum and rosa. Normal visualized pulmonary arteries. Normal visualized aortic arch and descending thoracic aorta. Normal visualized thoracic spine. Normal visualized ribs, clavicles, and shoulders. There is no demonstrated abnormality of the visualized soft tissue structures of the upper abdomen. RAD/Chest 1 View (Portable) IMPRESSION: No acute cardiopulmonary disease or major interval change. Electronically Signed: Aki Quach DO at 20:00 EDT ,
[2023-01-24 19:19] LABS: Absolute Lymphocyte Count 1.61 X10^3/uL (0.83-4.51); Absolute Neutrophil Count 4.1 X10^3/uL (2.0-7.7); Basophil# 0.05 X10^3/uL; Basophil% 0.8 % (0-1); Eosinophil# 0.21 X10^3/uL; Eosinophils% 3.3 % (0-5); Hematocrit 36.6 % (37-47); Lymphocyte # 1.61 X10^3/ul (0.83-4.51); Lymphocyte % 25.4 % (19-41); Mean Corp Hgb Conc 32.8 g/dL (32-36); Mean Corpuscular Hgb 31.3 pg (27.0-32.0); Mean Corpuscular Volume 95.6 fL (81-99); Mean Platelet Vol. 10.2 fl (6.2-12.0); Monocyte# 0.36 X10^3/uL; Monocyte% 5.7 % (0-10); NRBC Flagged by Analyzer 0 % (0-5); Neutrophil % 64.5 % (47-70); Platelet Count 248 K/mm3 (150-450); RBC Distribution Width SD 48.8 fl (35.1-43.9); Red Blood Count 3.83 M/mm3 (4.2-5.4); White Blood Count 6.4 K/mm3 (4.4-11.0)
[2023-01-24 19:32] LABS: Prothrombin Time (Protime)PT. 12.9 SECONDS (11.7-14.9)
[2023-01-24 19:39] LABS: Anion Gap 6 (5-15); BUN 8 mg/dL (7-18); BUN/Creat Ratio 9.6 RATIO (10-20); Calcium,Total 7.9 mg/dL (8.5-10.1); Chloride 111 mmol/L (98-107); Creatinine, Serum 0.84 mg/dL (0.55-1.02); EST Glomerular Filtration Rate 77 mL/min (>60); Est Glom Filt Rate - Afr Amer 93 mL/min (>60); Estimated Creatinine Clearance 75.01 ml/min; Glucose 114 mg/dL (74-106); Potassium 3.6 mmol/L (3.5-5.1); Sodium Level 140 mmol/L (136-145); Troponin-I HS (w/2H Reflex) < 3 pg/mL (3.0-54.0)
[2023-01-24] MEDS: Aspirin 81 MG TAB.CHEW 324 MG PO (20:05)
[2023-01-24 20:06] VITALS: BP 136/82; PULSE 99; RESP 16; O2SAT 98
[2023-01-24 20:20] LABS: D-Dimer Quantitative (DVT/PE) 0.41 FEU/ug/m (0.27-0.49)
--- NOTE | 2023-01-24 21:36 | ED.VIS.CHEST ---
HPI History of Present Illness Chief Complaint: Chest Pain Informant: patient Onset/Context/Timing Onset: Today Activity at onset: gradual Timing: Continuous Quality: Positive for Dull, Pressure and Tightness Location: Right Chest Current Severity: 4/10 Maximum Severity: 6/10 Worsened By: Movement of Arm and Movement of Torso Relieved By: Nothing Associated Symptoms: Positive for Nausea, Cough, Acid Reflux and Palpitations; Negative for Vomiting, Diaphoresis, Dyspnea, Fever or Lightheadedness Narrative Narrative: Patient presents with chest pain that began today. Patient states began approximately 5 hours prior to arrival. Patient states it came on gradually. Patient describes it as a dull pressure but occasional tightness. Patient states the pain is mainly over the right chest. Patient states it is worse with movement of her right arm and chest. Patient states nothing makes it better. Patient admits to some mild nausea with it. Patient also admits to a cough. Patient also admits to some palpitations where she feels like her heart is racing. Patient also admits to some acid reflux symptoms. Patient states her pain radiates to her right scapula. CVD Risk Factors: Negative for Hypertension, Diabetes, Hypercholesterolemia, Family History 1' </=55 or Smoking PE Risk Factors: Negative for Recent Travel/Surgery, Recent Immobilization, Prior DVT or PE, Cancer or OCP + Smoking + >/=35 PFSH [facility] Medical History (Updated 01/24/23 @ 21:[address] Jeronimo Manley, ) Depression Fibromyalgia GERD (gastroesophageal reflux disease) Graves disease Migraines Myasthenia gravis in remission Non-smoker Sleep apnea Home Medications escitalopram oxalate 20 mg tablet (Lexapro) 10 mg PO DAILY 09/05/15 [History Last Taken Unknown] topiramate 100 mg tablet (Topamax) 100 mg PO BID 09/05/15 [History Last Taken Unknown] trazodone 50 mg tablet 50 mg PO QHS 09/05/15 [History Last Taken Unknown] bupropion HCl 150 mg 24 hr tablet, extended release (Wellbutrin XL) 150 mg PO DAILY 01/24/23 [History Last Taken Unknown] cyclobenzaprine 10 mg tablet 10 mg PO DAILY 01/24/23 [History Last Taken Unknown] gabapentin 300 mg capsule 300 mg PO TID 01/24/23 [History Last Taken Unknown] methotrexate sodium 2.5 mg tablet mg 01/24/23 [History Last Taken Unknown] rizatriptan 10 mg tablet mg 01/24/23 [History Last Taken Unknown] Allergy/AdvReac Type Severity Reaction Status Date / Time amoxicillin Allergy Rash Verified 01/28/17 01:19 Surgical History (Updated 01/24/23 @ 21:[address] Jeronimo Manley DO) History of section Hx of knee surgery Hx of nasal septoplasty Social History Smoking Status: Never smoker ROS ROS ED Constitutional Constitutional ED: Denies chills or fever(s) Eyes Eyes: Denies blurry vision or change in vision ENT ENT ED: Denies rhinorrhea or sore throat Cardiovascular Cardiovascular: Reports chest pain and palpitations Respiratory/Chest Respiratory/Chest: Reports cough; Denies dyspnea Gastrointestinal Gastrointestinal: Reports nausea; Denies abdominal pain or vomiting Genitourinary Genitourinary ED: Denies dysuria or hematuria Musculoskeletal Musculoskeletal: Reports back pain; Denies neck pain Integumentary Denies abscess or rash Neurologic Neurologic: Denies headache(s) or weakness Allergic/Immunologic Allergic/Immunologic ED: Denies mouth swelling or urticaria EXAM Physical Exam Const Vital Signs: 01/24/23 18:51 01/24/23 19:08 01/24/23 20:06 Temperature 97.9 F Temperature Source Temporal Pulse Rate 98 99 Respiratory Rate 18 16 Blood Pressure 155/86 H 136/82 H Blood Pressure Mean 109 100 Pulse Ox 96 98 Oxygen Delivery Method Room Air Room Air Room Air Positive well nourished, well developed and obese General Appearance ED: well developed and NAD Nutritional Appearance: obese HEENT normocephalic and atraumatic Eyes PERRL and EOMs intact bilaterally Neck supple and no JVD Chest Wall Chest Narrative: There is mild tenderness over the right upper chest wall. There is no bony crepitance or step-off. Resp normal respiratory effort and clear to auscultation bilaterally Effort and Inspection: Negative for respiratory distress Cardio regular rate, regular rhythm and no murmurs GI normal to inspection, nondistended, normoactive bowel sounds, soft to palpation, non-tender and non-distended Extremity normal to inspection General Extremety ED: Negative for edema or tenderness General Extremity: Negative for edema Neuro oriented x3, CN's II-XII intact bilaterally and no sensory deficits noted Sensorium / Orientation: awake and alert Motor Exam: strength 5/5 throughout Psych mental status grossly normal Heart Score History: Slightly/Non-Suspicious ECG: Normal Age: >45 - <65 years Risk Factors: No Risk Factors Troponin: </= Normal Limit Score: 1 MDM MDM MDM Narrative Medical decision making narrative: Differential diagnosis includes cardiac dysrhythmia, cardiac ischemia, pulmonary embolism, pneumonia, pneumothorax, and musculoskeletal chest pain. EKG will be obtained to assess for cardiac dysrhythmia and cardiac ischemia. Chest x-ray will be obtained to assess for pneumonia and pneumothorax. CBC will be obtained to assess for leukocytosis and anemia. Basic metabolic profile will be obtained to assess for electrolyte abnormality and renal function. High-sensitivity troponin will be obtained to assess for cardiac ischemia. PT with INR will be obtained to assess for coagulopathy. D-dimer will be obtained to assess for pulmonary embolism. Lab Data Attestation: I reviewed the patient's lab results. Lab results narrative: CBC was reviewed and was within normal limits. Basic metabolic profile was reviewed and was essentially within normal limits. PT with INR was reviewed and was normal. D-dimer was reviewed and was negative. High-sensitivity troponin was reviewed and was less than 3. Labs: Laboratory Results - last 24 hr 01/24/23 01/24/23 01/24/23 19:08 19:08 19:08 WBC 6.4 RBC 3.83 L Hgb 12.0 Hct 36.6 L MCV 95.6 MCH 31.3 MCHC 32.8 RDW Std Deviation 48.8 H RDW Coeff of Lilian 14.0 Plt Count 248 MPV 10.2 Immature Gran % (Auto) 0.300 Neut % (Auto) 64.5 Lymph % (Auto) 25.4 Meade % (Auto) 5.7 Eos % (Auto) 3.3 Baso % (Auto) 0.8 Absolute Neuts (auto) 4.1 Absolute Lymphs (auto) 1.61 Nucleated RBC % 0 PT 12.9 INR 1.0 D-Dimer Quant (PE/DVT) Sodium 140 Potassium 3.6 Chloride 111 H Carbon Dioxide 23.0 Anion Gap 6 BUN 8 Creatinine 0.84 Estim Creat Clear Calc 75.01 Est GFR (MDRD) Af Amer 93 Est GFR (MDRD) Non-Af 77 BUN/Creatinine Ratio 9.6 L Glucose 114 H Calcium 7.9 L Troponin I High Sens < 3 L 01/24/23 19:08 WBC RBC Hgb Hct MCV MCH MCHC RDW Std Deviation RDW Coeff of Lilian Plt Count MPV Immature Gran % (Auto) Neut % (Auto) Lymph % (Auto) Meade % (Auto) Eos % (Auto) Baso % (Auto) Absolute Neuts (auto) Absolute Lymphs (auto) Nucleated RBC % PT INR D-Dimer Quant (PE/DVT) 0.41 Sodium Potassium Chloride Carbon Dioxide Anion Gap BUN Creatinine Estim Creat Clear Calc Est GFR (MDRD) Af Amer Est GFR (MDRD) Non-Af BUN/Creatinine Ratio Glucose Calcium Troponin I High Sens Radiography Chest X-Ray - ED: 1 View, Read by ED Physician, Read by Radiologist and No Acute Disease Diagnostic Testing: Clinical Impression(s) from Imaging Studies Chest X-Ray 01/24/23 19:05 IMPRESSION: No acute cardiopulmonary disease or major interval change. Electronically Signed: Aki Quach DO at 20:00 EDT Reading Location ID and State: [address] [place] [address] Tel [phone], Service support , Portable 1 view chest x-ray was obtained. On my independent interpretation, lung campo are clear. There is normal cardiac silhouette. Bony thorax is normal. There is no acute process noted. Radiologist also interpreted the x-ray and agrees. EKG Initial EKG: Attestation: I personally reviewed and interpreted this EKG as follows: Interpretation: Sinus Rhythm (97) and No Acute Injury Pattern Comments: EKG was obtained. On my independent interpretation, it showed a normal sinus rhythm with a rate of 97. [place] interval, QRS interval, and QTc intervals were all normal. Snyder was normal. There are no acute ST or T wave changes. Prior EKG tracings: available for review Prior: Unchanged (01/28/2017) Treatment and Re-Evaluation :: Patient was given aspirin here. Patient feeling better on reevaluation. Patient was advised of her findings. Patient has a HEART score of 1. Patient was advised that this is low risk for acute cardiac event. Patient was instructed to follow-up with her primary care physician in 5 to 7 days. Patient understood and was agreeable with the plan. All questions were answered. Discharge Plan Triage Chief Complaint: Chest Pain ED Provider: Jeronimo Manley Dx/Rx/DC Orders Clinical Impression: Chest pain, Obesity (BMI 30-39.9), History of fibromyalgia Instructions: ED Chest Pain, Uncertain Cause Prescriptions: No Action escitalopram oxalate [Lexapro] 20 MG tablet 10 mg PO DAILY topiramate [Topamax] 100 MG tablet 100 mg PO BID trazodone 50 MG tablet 50 mg PO QHS cyclobenzaprine 10 mg tablet 10 mg PO DAILY Label Comments: Take 1 tablet by mouth three times daily as needed for muscle spasm. rizatriptan 10 mg tablet Label Comments: Take 1 tablet by mouth at first sign of headache/migraine. May take again in 2 hours if necessary. methotrexate sodium 2.5 mg tablet Label Comments: Take 6 Tablet(s) Oral once a week gabapentin 300 mg capsule 300 mg PO TID Label Comments: Take 1 capsule in the morning and 1 capsule at bedtime for 3 days. If tolerated, okay to increase to 1 in the morning, 1 at lunch and 1 at bedtime. bupropion HCl [Wellbutrin XL] 150 mg tablet extended release 24 hr 150 mg PO DAILY Label Comments: Take 1 tablet by mouth once daily. Primary Care Provider: Lawrence Howard Referrals: Lawrence Howard DO [Primary Care Provider] - 5-7 Days Disposition Disposition: Home, Self Care
[2023-01-24 21:51] VITALS: BP 151/79
== END 2023-01-24 21:53 | disposition home or self-care (01) ==
PROVIDERS: Emergency Provider Emergency Medicine; PCP Student in an Organized Health Care Education/Training Program; Visit Provider Emergency Medicine
DX: R07.9 Chest pain, unspecified (principal); E66.9 Obesity, unspecified; G47.30 Sleep apnea, unspecified; Z79.899 Other long term (current) drug therapy
CPT/HCPCS: 71045; 80048; 84484; 85025; 85379; 85610; 93005; 99285; A4216

== ENCOUNTER → 2023-04-09 | Outpatient (CLI) | payer BC, SELFPAY ==
[2023-04-09 14:34] LABS: Absolute Lymphocyte Count 1.87 X10^3/uL (0.83-4.51); Absolute Neutrophil Count 3.1 X10^3/uL (2.0-7.7); Basophil# 0.06 X10^3/uL; Eosinophil# 0.13 X10^3/uL; Eosinophils% 2.3 % (0-5); Hematocrit 42.2 % (37-47); Hemoglobin 13.5 g/dL (12.0-15.0); Lymphocyte # 1.87 X10^3/ul (0.83-4.51); Lymphocyte % 32.7 % (19-41); Mean Corpuscular Hgb 29.3 pg (27.0-32.0); Mean Corpuscular Volume 91.7 fL (81-99); Mean Platelet Vol. 10.5 fl (6.2-12.0); Monocyte# 0.57 X10^3/uL; NRBC Flagged by Analyzer 0 % (0-5); Neutrophil # 3.05 X10^3/uL (2.7-7.7); Neutrophil % 53.3 % (47-70); Platelet Count 259 K/mm3 (150-450); RBC Distribution Width CV 13.4 % (11.6-14.6); RBC Distribution Width SD 44.6 fl (35.1-43.9); White Blood Count 5.7 K/mm3 (4.4-11.0)
[2023-04-09 14:48] LABS: ALB/GLOB Ratio 0.9 RATIO (0.9-2.4); AST(SGOT) 20 U/L (15-37); Alanine Aminotransfer ALT/SGPT 22 U/L (13-56); Albumin, Serum 3.3 g/dL (3.2-5.0); Alkaline Phosphatase 192 U/L (45-117); Anion Gap 9 (5-15); BUN 9 mg/dL (7-18); BUN/Creat Ratio 10.1 RATIO (10-20); Calcium,Total 8.4 mg/dL (8.5-10.1); Chloride 111 mmol/L (98-107); Creatinine, Serum 0.89 mg/dL (0.55-1.02); EST Glomerular Filtration Rate 72 mL/min (>60); Est Glom Filt Rate - Afr Amer 87 mL/min (>60); Globulin 3.8 g/dL (2.2-4.2); Glucose 104 mg/dL (74-106); Potassium 3.7 mmol/L (3.5-5.1); Protein, Total 7.1 g/dL (6.4-8.2); Sodium Level 138 mmol/L (136-145)
== END | disposition home or self-care (01) ==
LOC: MTLAB 13:09
PROVIDERS: PCP Student in an Organized Health Care Education/Training Program; Referring Provider Internal Medicine Rheumatology; Visit Provider Internal Medicine Rheumatology
DX: M06.4 Inflammatory polyarthropathy (principal); Z79.899 Other long term (current) drug therapy
CPT/HCPCS: 36415; 80053; 85025

== ENCOUNTER → 2023-06-14 | Outpatient (CLI) | payer BC, SELFPAY ==
[2023-06-14 10:27] LABS: Absolute Lymphocyte Count 1.26 X10^3/uL (0.83-4.51); Absolute Neutrophil Count 3.9 X10^3/uL (2.0-7.7); Basophil# 0.05 X10^3/uL; Basophil% 0.9 % (0-1); Eosinophils% 3.4 % (0-5); Hematocrit 37.1 % (37-47); Hemoglobin 11.7 g/dL (12.0-15.0); Lymphocyte # 1.26 X10^3/ul (0.83-4.51); Lymphocyte % 21.5 % (19-41); Mean Corp Hgb Conc 31.5 g/dL (32-36); Mean Corpuscular Hgb 29.7 pg (27.0-32.0); Mean Corpuscular Volume 94.2 fL (81-99); Mean Platelet Vol. 10.7 fl (6.2-12.0); Monocyte# 0.36 X10^3/uL; Monocyte% 6.1 % (0-10); NRBC Flagged by Analyzer 0 % (0-5); Neutrophil # 3.93 X10^3/uL (2.7-7.7); Neutrophil % 67.1 % (47-70); Platelet Count 286 K/mm3 (150-450); RBC Distribution Width CV 14.4 % (11.6-14.6); RBC Distribution Width SD 50.1 fl (35.1-43.9); Red Blood Count 3.94 M/mm3 (4.2-5.4); White Blood Count 5.9 K/mm3 (4.4-11.0)
[2023-06-14 11:02] LABS: ALB/GLOB Ratio 0.9 RATIO (0.9-2.4); AST(SGOT) 9 U/L (15-37); Alanine Aminotransfer ALT/SGPT 20 U/L (13-56); Albumin, Serum 3.4 g/dL (3.2-5.0); Alkaline Phosphatase 158 U/L (45-117); Anion Gap 5 (5-15); BUN 7 mg/dL (7-18); BUN/Creat Ratio 7.2 RATIO (10-20); Calcium,Total 8.7 mg/dL (8.5-10.1); Chloride 111 mmol/L (98-107); Creatinine, Serum 0.97 mg/dL (0.55-1.02); EST Glomerular Filtration Rate 64 mL/min (>60); Est Glom Filt Rate - Afr Amer 78 mL/min (>60); Globulin 3.8 g/dL (2.2-4.2); Glucose 105 mg/dL (74-106); Potassium 3.8 mmol/L (3.5-5.1); Protein, Total 7.2 g/dL (6.4-8.2); Sodium Level 141 mmol/L (136-145)
== END | disposition home or self-care (01) ==
LOC: MTLAB 08:40
PROVIDERS: PCP Student in an Organized Health Care Education/Training Program; Referring Provider Internal Medicine Rheumatology; Visit Provider Internal Medicine Rheumatology
DX: M06.4 Inflammatory polyarthropathy (principal); Z79.899 Other long term (current) drug therapy
CPT/HCPCS: 36415; 80053; 85025

== ENCOUNTER → 2023-11-09 | Outpatient (CLI) | payer BC, SELFPAY ==
--- OUTSIDE RECORDS SUMMARY | 2023-11-09 11:38 | XMS RPT_ITS | CCD ---
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 PCP TEAM CHRONIC DISEASE VISIT [facility] Start: 05-04-2024 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 DESIRAE DISEASE VISIT ANNUAL PCP TEAM CHRONIC DISEASE VISIT [facility] Start: 05-04-2024 BP CONTROLLED (<130/80) BP CONTROLLE D (<130/80) [facility] Start: 02-03-2024 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 DESIRAE DISEASE VISIT ANNUAL PCP TEAM CHRONIC DISEASE VISIT [facility] Start: 02-03-2024 PNEUMOCOCCAL (1 - PCV) PNEUMOCOCCAL (1 - PCV) [facility] Immunizations Immunization Date Immunization Notes Care Provider Krunal carvalho 03-07-2022 tetanus toxoid, redu tori diphtheria toxoid, and acellular pertussis vaccine, adsorbed Noah Morgan THORACIC MEDICINE PHYSICIAN.[facility] Work Phone: [facility] 08-03-2021 influenza, seasonal, injectable Ирина Zurawick THORACIC MEDICINE PHYSICIAN.[facility] Work Phone: [facility] Work Phone: 08-03-2021 influenza virus vaccine, unspecified formulation Lawrence Howard DO Work Phone: [facility] 05-28-2019 tetanus toxoid, redu tori diphtheria toxoid, and acellular pertussis vaccine, adsorbed Ирина Zurawick THORACIC MEDICINE PHYSICIAN.[facility] Work Phone: [facility] Work Phone: 07-17-2018 influenza, seasonal, injectable Ирина Zurawick THORACIC MEDICINE PHYSICIAN.[facility] Work Phone: [facility] Work Phone: 08-02-2016 influenza, seasonal, injectable Ирина Zurawick THORACIC MEDICINE PHYSICIAN.[facility] Work Phone: [facility] Work Phone: 10-08-2009 novel [id number], preservative-free, injectable Maye Lincoln THORACIC MEDICINE PHYSICIAN.[facility] Work Phone: [facility] Work Phone: Payers Date Payer Category Payer Unknown [facility] GENERIC [id number] 2022-Present [phone] [address] [place] [address] [id number] 2020 Unknown [employer] PPO [id number] 2020-Present [phone] [address] [place] [address] PPO [id number] 2020 Unknown [id number] 2020 Unknown [id number] Social History Date Type Detail [facility] Start: 10-24-2021 End: 02-02-2023 Alcohol intake Current drinker of alcohol (finding) [facility] Start: 12-22-2019 End: 01-29-2023 History SDOH Alcohol Frequency 1 [facility] Start: 12-22-2019 End: 03-28-2022 History SDOH Alcohol Std Drinks 98 [facility] Start: 12-22-2019 End: 01-29-2023 History SDOH Social Connections Phone 5 [facility] Start: 12-22-2019 End: 01-29-2023 History SDOH Social Connections Get Together 2 [facility] Start: 12-22-2019 End: 01-29-2023 History SDOH Social Connections Shinto 3 [facility] Start: 12-22-2019 Education 17 [facility] Start: 1975 Sex Assigned At Not on file [facility] Start: 01-30-2022 End: 08-16-2022 Exposure to SARS-CoV-2 (event) Not sure [facility] Start: 03-28-2022 History SDOH Social Connections Get Together 4 [facility] Start: 08-20-2022 End: 08-30-2022 Exposure to SARS-CoV-2 (event) Yes [facility] Start: 1975 Sex Assigned At Female C [facility] Start: 01-29-2023 History SDOH Alcohol Std Drinks 0 [facility] Start: 03-02-2023 End: 07-21-2023 Alcohol intake Ex-drinker (finding) [facility] Start: 01-29-2023 End: 04-13-2023 History of Social function [employer] [facility] Start: 01-29-2023 End: 04-13-2023 Social connection and isolation panel [facility] Do you belong to any clubs or organizations such as zoroastrianism groups, unions, fraternal or athletic groups, or school groups? No [facility] Are you now , , , , never or living with a partner? [facility] How often to you hav e a drink containing alcohol? Never [facility] How many standard dr inks containing alcohol do you have on a typical day? Patient does not drink [facility] Do you feel stress - tense, restless, nervous, or anxious, or unable to sleep at night because your mind is troubled all the time - these days [OSQ] Only a little [facility] (I/We) worried wheth er (my/our) food would run out before (I/we) got money to buy more. Never true [facility] Start: 10-26-2022 Gender identity Identifies as female gender (finding) [facility] Start: 10-26-2022 Sexual orientation Heterosexual (cristian soto) [facility] Clinical Notes 01-24-2022 to 11-05-2023 Telephone Encounter - Maritza Redd LPN - 09/11/2023 4:26 PM ESTTelephone Encounter - Maritza Redd LPN - 09/11/2023 4:20 PM Dilan Soto MD - 09/03/2023 10:09 AM EST Note Date & Type Note Facility 11-05-2023 Note HNO ID: [id number] Author: JACK COHEN MD Service: ? Author Type: Physician Type: Progress Notes Filed: 11/05/2023 09:19 Note Text: Dump Motorman offered: Patient accepts, visit chaperoned by Veronica Floyd. Saad is a 48 year old No obstetric history on file. who presents for an annual gynecologic exam without complaints. Postmenopausal: Perimenopausal w LMP 10-16-23 HRT use: No. Last Pap: normal HPV: negative History of abnormal pap: No Last mammogram: 2022 normal History of abnormal mammogram: No C section OB History No obstetric history on file. 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 Comments: Sexual Activity: Not Asked; No partner data on record Contraception: No contraception data on record PAST MEDICAL HISTORY Diagnosis Date Anxiety Arthritis Depression Hypertension Low vitamin D level 07/30/2018 Migraines Thyroid disease PAST SURGICAL HISTORY Procedure Laterality Date DELIVERY ONLY 10/22/2007 , low transverse COLONOSCOPY SCREENING 03/02/2023 CONIZATION CERVIX W/WO DANDC RPR ELTRD EXC 10/22/1994 LEEP-Cervix CYST ASPIRATION Left 12/18/2022 KNEE ARTHROSCOPY 10/22/1984 Left SEPTOPLASTY/SUBMUCOUS RESECJ W/WO CARTILAGE GRF 10/22/2011 TONSILLECTOMY HX FAMILY HISTORY Problem Relation Age of Onset other (HTN) Father Emphysema Paternal Grandfather SOCIAL HISTORY Social History Tobacco Use Smoking status: Never Smokeless tobacco: Never Substance Use Topics Alcohol use: Not Currently Drug use: No REVIEW OF SYSTEMS Abdomen: No abdominal pain, nausea, vomiting, diarrhea, or constipation. No bloating, early satiety, indigestion, or increased flatulence. Bladder: No dysuria, gross hematuria, urinary frequency, urinary urgency, or incontinence Breast: No breast lumps, nipple d/c, overlying skin changes, redness or skin retraction Allergies and current medication updated:Yes EXAM: LMP 10/16/2023 GENERAL: pleasant, female in no apparent distress HEENT: Normocephalic, atraumatic, mucus membranes moist, and no lesions NECK: Supple, full range of motion, no adenopathy, and thyroid normal DERMATOLOGY: Normal, without lesions, non-icteric, and non-hirsute BREAST: soft, non-tender, symmetric, no dominant mass, normal nipple-areolar complex, no lymphadenopathy, and no nipple discharge CHEST: Normal inspiratory effort ABDOMEN: soft, non-tender, and no masses PELVIC: external genitalia normal, normal Bartholin's glands, urethra, [place]'s glands, no vulvar lesions, no cervical lesions, good vaginal support, physiologic discharge present, normal appearing perineal body and perianal region BIMANUAL: uterus normal size, shape and consistency, anteverted, no adnexal masses, non-tender, and noting cervix is high in the pelvis RECTOVAGINAL: rectovaginal exam negative for any masses or nodularity. NEURO: alert and oriented x3,exam grossly non-focal EXTREMITIES: normal ASSESSMENT/PLAN: 1) Health maintenance: Pap done with HPV. Mammogram ordered 2) Follow up one year or sooner as needed Jack Cohen MD [facility] 10-12-2023 Note HNO ID: [id number] Author: Cecilia Watts APRN.[employer] Service: ? Author Type: Nurse Practitioner Type: Progress Notes Filed: 10/12/2023 1:49 PM Note Text: Subjective Eye Problem Associated symptoms include congestion and coughing. Pertinent negatives include no chills, fever, headaches or sore throat. Saad Villafana is a 48 year old female who presents with eye redness and drainage for the past week. She has been using allergy eye drops and sustain eye drop and eyes has not improved. She has had increased tearing and drainage from both eyes. She has also had recent URI symptoms of cough, congestion. Review of Systems Constitutional: Negative for chills and fever. HENT: Positive for congestion. Negative for ear pain and sore throat. Eyes: Positive for discharge and redness. Negative for blurred vision, double vision, photophobia and pain. Respiratory: Positive for cough. Cardiovascular: Negative. Neurological: Negative for dizziness and headaches. BP 122/78 Pulse 88 Temp 36.7 ?C (98 ?F) (Tympanic) Resp 18 Wt 97.4 kg (214 lb 12.8 oz) LMP 03/06/2022 (Approximate) SpO2 98% BMI 33.91 kg/m? PAST MEDICAL HISTORY Diagnosis Date Anxiety Arthritis Depression Hypertension Low vitamin D level 07/30/2018 Migraines Thyroid disease PAST SURGICAL HISTORY Procedure Laterality Date DELIVERY ONLY 10/22/2007 , low transverse COLONOSCOPY SCREENING 03/02/2023 CONIZATION CERVIX W/WO DANDC RPR ELTRD EXC 10/22/1994 LEEP-Cervix CYST ASPIRATION Left 12/18/2022 KNEE ARTHROSCOPY 10/22/1984 Left SEPTOPLASTY/SUBMUCOUS RESECJ W/WO CARTILAGE GRF 10/22/2011 TONSILLECTOMY HX ALLERGIES Amoxicillin, Adhesive, Latex, and Seasonal Allergies MEDICATIONS meclizine (ANTIVERT) 25 mg tab Take 1 tablet by mouth three times a day. lisinopril (ZESTRIL) 5 mg tablet Take 1 tablet by mouth once daily. gabapentin (NEURONTIN) 300 mg capsule Take 1 capsule in the morning and 1 capsule at bedtime for 3 days. If tolerated, okay to increase to 1 in the morning, 1 at lunch and 1 at bedtime. potassium chloride ER (KLOR-CON M10) 10 mEq tablet Take 1 tablet by mouth two times a day. loratadine (CLARITIN) 10 mg tablet Take 1 tablet by mouth once daily. ondansetron orally disintegrating (ZOFRAN ODT) 4 mg disintegrating tablet Take 1 tablet by mouth every 8 hours as needed for nausea/vomiting. hydrocortisone (ANUSOL-HC) 2.5 % rectal cream by RECTAL route twice daily as needed (external hemorrhoids). External hemorrhoids Cholecalciferol, Vitamin D3, 125 mcg (5,000 unit) cap Take 1 capsule by mouth once daily. cyanocobalamin (VITAMIN B-12) 1,000 mcg tab Take 1 tablet by mouth once daily. buPROPion XL (WELLBUTRIN XL) 300 mg 24 hr tablet Take 1 tablet by mouth once daily. topiramate (TOPAMAX) 200 mg tablet Take 1 tablet by mouth twice daily. cyclobenzaprine (FLEXERIL) 10 mg tablet Take 1 tablet by mouth three times daily as needed for muscle spasm. rizatriptan (MAXALT) 10 mg tablet Take 1 tablet by mouth at first sign of headache/migraine. May take again in 2 hours if necessary. Blood Pressure Monitor (BLOOD PRESSURE KIT) 1 Each once daily. acetaminophen 325 mg-caffeine 40 mg-butalbital 50 mg (FIORICET) per tablet Take 1 tablet by mouth once daily as needed for headache (migraine headache). traZODone (DESYREL) 50 mg tablet Take 2 tablets by mouth daily at bedtime. METHOTREXATE ORAL Take by mouth. hydroxychloroquine (PLAQUENIL) 200 mg tablet Take 200 mg by mouth twice daily. trimethoprim-polymyxin (POLYTRIM) 10,000 unit- 1 mg/mL ophthalmic solution Use 1 Drop in both eyes four times daily for 7 days. escitalopram oxalate (LEXAPRO) 20 mg tablet Take 0.5 tablets by mouth once daily. (Patient not taking: Reported on 10/12/2023) FAMILY HISTORY Problem Relation Age of Onset other (HTN) Father Emphysema Paternal Grandfather Social History Tobacco Use Smoking status: Never Smokeless tobacco: Never Substance Use Topics Alcohol use: Not Currently Drug use: No Objective Physical Exam Vitals and nursing note reviewed. Constitutional: Appearance: Normal appearance. HENT: Right Ear: Tympanic membrane, ear canal and external ear normal. Left Ear: Tympanic membrane, ear canal and external ear normal. Nose: Nose normal. Mouth/Throat: Mouth: Mucous membranes are moist. Pharynx: Oropharynx is clear. Uvula midline. No oropharyngeal exudate or posterior oropharyngeal erythema. Eyes: General: Lids are normal. Vision grossly intact. Right eye: No discharge or hordeolum. Left eye: No discharge or hordeolum. Conjunctiva/sclera: Right eye: Right conjunctiva is injected. No chemosis, exudate or hemorrhage. Left eye: Left conjunctiva is injected. No chemosis, exudate or hemorrhage. Pupils: Pupils are equal, round, and reactive to light. Cardiovascular: Rate and Rhythm: Normal rate and regular rhythm. Heart sounds: Normal hea (more content not included)... [facility] 09-11-2023 Miscellaneous Notes Patient has been identified by name and date of : Yes Patient phones for refill(s): Requested Prescriptions Pending Prescriptions Disp Refills lisinopril (ZESTRIL) 5 mg tablet 30 tablet 1 Sig: Take 1 tablet by mouth once daily. Date of last office visit in primary care: 06/26/2023 Date of next office visit in primary care: 09/29/2023 Please advise. Thank you. Maritza Redd LPN. documented in this encounter [facility] 09-11-2023 Miscellaneous Notes Patient has been identified by name and date of : Yes Patient phones for refill(s): Requested Prescriptions Pending Prescriptions Disp Refills meclizine (ANTIVERT) 25 mg tab 30 tablet 1 Sig: Take 1 tablet by mouth three times a day. Date of last office visit in primary care: 06/26/2023 Date of next office visit in primary care: 09/29/2023 Please advise. Thank you. Maritza Redd LPN. documented in this encounter [facility] 09-11-2023 Miscellaneous Notes Patient has been identified by name and date of : Yes Requested Prescriptions Pending Prescriptions Disp Refills gabapentin (NEURONTIN) 300 mg capsule 90 capsule 0 Sig: Take 1 capsule in the morning and 1 capsule at bedtime for 3 days. If tolerated, okay to increase to 1 in the morning, 1 at lunch and 1 at bedtime. potassium chloride ER (KLOR-CON M10) 10 mEq tablet 60 tablet 1 Sig: Take 1 tablet by mouth two times a day. loratadine (CLARITIN) 10 mg tablet 30 tablet 11 Sig: Take 1 tablet by mouth once daily. RX INSTRUCTIONS: Patient aware RX will be sent to pharmacy. No need to notify patient. Patient last office visit: 06/26/23 Patient next office visit: 09/29/23 Natasha Bay MA documented in this encounter [facility] 09-03-2023 Note HNO ID: [id number] Author: Dilan Garcai MD Service: ? Author Type: Physician Type: Progress Notes Filed: 09/03/2023 11:40 AM Note Text: [facility] [place] [facility] Department Date: September 03, 2023 - 10:09 AM Saad Villafana is self referred. Chief Complaint: back and right leg pain SUBJECTIVE: Saad Villafana, is a 48 year old female who presents with lower back pain. The pain started 3 months ago, with no known injury or trauma. The pain onset was gradual in nature. The patient states that the current pain is persistent. Her pain is located in the right lumbar region and radiates to right lower extremity along lateral aspect to the level of calf. // The pain is described as aching, radiating, and sharp. The pain intensity is rated 8. The pain is exacerbated by swaying back and forth, walking or prolonged sitting or standing and relieved decompression and by medications. Symptoms interfere with physical activity, walking, sleeping, sitting, bathing, driving, cooking, household cleaning, lifting, and social activities. 80% pain in spine vs 20% (radiating) pain in the extremity. Litigation: No. Worker's Compensation: No. Prior pain treatment has included: -Prednisone, Tylenol, ibuprofen, muscle relaxants, Gabapentin with partial relief -Physical therapy with minimal relief. -Left L4-5 TFESI on 11/17/22 with full relief ALLERGIES Allergen Reactions Amoxicillin Rash Adhesive Rash, Other: See Comments Rash like blisters Latex Other: See Comments Blistering rash Seasonal Allergies Other: See Comments Nasal congestion, itchy eyes Current Medications: Pain medications reviewed and reconciled in the medication list: Yes. Current Outpatient Medications Medication Sig ondansetron orally disintegrating (ZOFRAN ODT) 4 mg disintegrating tablet Take 1 tablet by mouth every 8 hours as needed for nausea/vomiting. potassium chloride ER (KLOR-CON M10) 10 mEq tablet Take 1 tablet by mouth twice daily. lisinopril (ZESTRIL) 5 mg tablet Take 1 tablet by mouth once daily. hydrocortisone (ANUSOL-HC) 2.5 % rectal cream by RECTAL route twice daily as needed (external hemorrhoids). External hemorrhoids gabapentin (NEURONTIN) 300 mg capsule Take 1 capsule in the morning and 1 capsule at bedtime for 3 days. If tolerated, okay to increase to 1 in the morning, 1 at lunch and 1 at bedtime. Cholecalciferol, Vitamin D3, 125 mcg (5,000 unit) cap Take 1 capsule by mouth once daily. cyanocobalamin (VITAMIN B-12) 1,000 mcg tab Take 1 tablet by mouth once daily. escitalopram oxalate (LEXAPRO) 20 mg tablet Take 0.5 tablets by mouth once daily. (Patient not taking: Reported on 07/21/2023) buPROPion XL (WELLBUTRIN XL) 300 mg 24 hr tablet Take 1 tablet by mouth once daily. topiramate (TOPAMAX) 200 mg tablet Take 1 tablet by mouth twice daily. cyclobenzaprine (FLEXERIL) 10 mg tablet Take 1 tablet by mouth three times daily as needed for muscle spasm. rizatriptan (MAXALT) 10 mg tablet Take 1 tablet by mouth at first sign of headache/migraine. May take again in 2 hours if necessary. Blood Pressure Monitor (BLOOD PRESSURE KIT) 1 Each once daily. loratadine (CLARITIN) 10 mg tablet Take 1 tablet by mouth once daily. acetaminophen 325 mg-caffeine 40 mg-butalbital 50 mg (FIORICET) per tablet Take 1 tablet by mouth once daily as needed for headache (migraine headache). traZODone (DESYREL) 50 mg tablet Take 2 tablets by mouth daily at bedtime. meclizine (ANTIVERT) 25 mg tab Take 1 tablet by mouth three times daily. METHOTREXATE ORAL Take by mouth. hydroxychloroquine (PLAQUENIL) 200 mg tablet Take 200 mg by mouth twice daily. No current facility-administered medications for this visit. PAST MEDICAL HISTORY Diagnosis Date Anxiety Arthritis Depression Hypertension Low vitamin D level 07/30/2018 Migraines Thyroid disease PAST SURGICAL HISTORY Procedure Laterality Date DELIVERY ONLY 10/22/2007 , low transverse COLONOSCOPY SCREENING 03/02/2023 CONIZATION CERVIX W/WO DANDC RPR ELTRD EXC 10/22/1994 LEEP-Cervix CYST ASPIRATION Left 12/18/2022 KNEE ARTHROSCOPY 10/22/1984 Left SEPTOPLASTY/SUBMUCOUS RESECJ W/WO CARTILAGE GRF 10/22/2011 TONSILLECTOMY HX FAMILY HISTORY Problem Relation Age of Onset other (HTN) Father Emphysema Paternal Grandfather Social History: Alcohol Use: Not Currently Tobacco Use: Never Drug Use: No Employer And Job Title: None on file Years Of Education Completed: Not specified Marital Status: REVIEW OF SYSTEMS: Constitutional: (-) Fever (-) Night Sweats (-) Weight Gain (-) Weight Loss (+) Fatigue Cardiovascular: (-) Chest Pain (-) Palpitations (-) Lightheadedness (-) Swelling of Ankles (-) Hx Heart Surgery Respiratory: (-) Shortness of Breath (+) Cough (-) Wheezing (+) Snoring Gastrointestinal: (-) Incontinence (-) Abdominal Pain (-) Diarrhea (-) Constip (more content not included)... [facility] 09-03-2023 History of Present illness Narrative [facility] Department Date: September 03, 2023 - 10:09 AM Saad Villafana is self referred. Chief Complaint: back and right leg pain SUBJECTIVE: Saad Villafana, is a 48 year old female who presents with lower back pain. The pain started 3 months ago, with no known injury or trauma. The pain onset was gradual in nature. The patient states that the current pain is persistent. Her pain is located in the right lumbar region and radiates to right lower extremity along lateral aspect to the level of calf. // The pain is described as aching, radiating, and sharp. The pain intensity is rated 8. The pain is exacerbated by swaying back and forth, walking or prolonged sitting or standing and relieved decompression and by medications. Symptoms interfere with physical activity, walking, sleeping, sitting, bathing, driving, cooking, household cleaning, lifting, and social activities. 80% pain in spine vs 20% (radiating) pain in the extremity. Litigation: No. Worker's Compensation: No. Prior pain treatment has included: -Prednisone, Tylenol, ibuprofen, muscle relaxants, Gabapentin with partial relief -Physical therapy with minimal relief. -Left L4-5 TFESI on 11/17/22 with full relief ALLERGIES Allergen Reactions Amoxicillin Rash Adhesive Rash, Other: See Comments Rash like blisters Latex Other: See Comments Blistering rash Seasonal Allergies Other: See Comments Nasal congestion, itchy eyes Current Medications: Pain medications reviewed and reconciled in the medication list: Yes. Current Outpatient Medications Medication Sig ondansetron orally disintegrating (ZOFRAN ODT) 4 mg disintegrating tablet Take 1 tablet by mouth every 8 hours as needed for nausea/vomiting. potassium chloride ER (KLOR-CON M10) 10 mEq tablet Take 1 tablet by mouth twice daily. lisinopril (ZESTRIL) 5 mg tablet Take 1 tablet by mouth once daily. hydrocortisone (ANUSOL-HC) 2.5 % rectal cream by RECTAL route twice daily as needed (external hemorrhoids). External hemorrhoids gabapentin (NEURONTIN) 300 mg capsule Take 1 capsule in the morning and 1 capsule at bedtime for 3 days. If tolerated, okay to increase to 1 in the morning, 1 at lunch and 1 at bedtime. Cholecalciferol, Vitamin D3, 125 mcg (5,000 unit) cap Take 1 capsule by mouth once daily. cyanocobalamin (VITAMIN B-12) 1,000 mcg tab Take 1 tablet by mouth once daily. escitalopram oxalate (LEXAPRO) 20 mg tablet Take 0.5 tablets by mouth once daily. (Patient not taking: Reported on 07/21/2023) buPROPion XL (WELLBUTRIN XL) 300 mg 24 hr tablet Take 1 tablet by mouth once daily. topiramate (TOPAMAX) 200 mg tablet Take 1 tablet by mouth twice daily. cyclobenzaprine (FLEXERIL) 10 mg tablet Take 1 tablet by mouth three times daily as needed for muscle spasm. rizatriptan (MAXALT) 10 mg tablet Take 1 tablet by mouth at first sign of headache/migraine. May take again in 2 hours if necessary. Blood Pressure Monitor (BLOOD PRESSURE KIT) 1 Each once daily. loratadine (CLARITIN) 10 mg tablet Take 1 tablet by mouth once daily. acetaminophen 325 mg-caffeine 40 mg-butalbital 50 mg (FIORICET) per tablet Take 1 tablet by mouth once daily as needed for headache (migraine headache). traZODone (DESYREL) 50 mg tablet Take 2 tablets by mouth daily at bedtime. meclizine (ANTIVERT) 25 mg tab Take 1 tablet by mouth three times daily. METHOTREXATE ORAL Take by mouth. hydroxychloroquine (PLAQUENIL) 200 mg tablet Take 200 mg by mouth twice daily. No current facility-administered medications for this visit. PAST MEDICAL HISTORY Diagnosis Date Anxiety Arthritis Depression Hypertension Low vitamin D level 07/30/2018 Migraines Thyroid disease PAST SURGICAL HISTORY Procedure Laterality Date DELIVERY ONLY 10/22/2007 , low transverse COLONOSCOPY SCREENING 03/02/2023 CONIZATION CERVIX W/WO D&C RPR ELTRD EXC 10/22/1994 LEEP-Cervix CYST ASPIRATION Left 12/18/2022 KNEE ARTHROSCOPY 10/22/1984 Left SEPTOPLASTY/SUBMUCOUS RESECJ W/WO CARTILAGE GRF 10/22/2011 TONSILLECTOMY HX FAMILY HISTORY Problem Relation Age of Onset other (HTN) Father Emphysema Paternal Grandfather Social History: Alcohol Use: Not Currently Tobacco Use: Never Drug Use: No Employer And Job Title: None on file Years Of Education Completed: Not specified Marital Status: REVIEW OF SYSTEMS: Constitutional: (-) Fever (-) Night Sweats (-) Weight Gain (-) Weight Loss (+) Fatigue Cardiovascular: (-) Chest Pain (-) Palpitations (-) Lightheadedness (-) Swelling of Ankles (-) Hx Heart Surgery Respiratory: (-) Shortness of Breath (+) Cough (-) Wheezing (+) Snoring Gastrointestinal: (-) Incontinence (-) Abdominal Pain (-) Diarrhea (-) Constipation (-) Nausea/Vomiting (+) Heart Burn Endocrine: (+) Thyroid Disorder (-) Diabetes Hematologic: (-) Prolonged Bleeding (-) Easy Bruising Genitourinary: (-) Incontinence (-) Frequency (-) Urinary Urgency Skin: (-) Rashes (-) Itching (-) Other Lesions Neurologic: (+) Headache (-) Double Vision (-) Confusion (-) Paralysis (-) Vertigo (-) Syncope Psychiatric: (-) Depression (-) Anxiety OARRS Report reviewed: Yes Narcotic Agreement reviewed and signed?: N/A Baseline Urine Toxicology obtained: N/A Urine Panel: No results found for: UQCANN , UQBNZL , OVC9IVC , UQAMPH , UQMAMP , UQBUPRE , UQNORBUP , UQMTHD , UQEDDP , UQTRAM , UQDTRM , UQFNTL , UQNFTL , UQCODE , UQMORP , UQDCDN , UQHCOD , UQOXYC , UQHMOR , UQOXYM , UQCREA , UQPH , UQSPGR , UQOXID , UQSPQ The pain panel was N/A OBJECTIVE: Performed in conjunction with observation. The patient was alert and oriented x3. The patient was in no acute distress. Lungs: Clear, negative for dyspnea or distress. CVR: Negative for SOB or peripheral edema. Neck: Supple. The range of motion was intact. Negative focal tenderness Back: Range of motion of the trunk was intact. Lateral lumbosacral tenderness worse on the right side. SLR: Negative Facet Loading: Positive with axial loading and extension. SI joint: Negative PSIS tenderness. Extremities: no reported edema or erythema. Motor: Negative focal deficits Sensory: Intact to light touch and sharp throughout the lower extremities Gait: Within normal limits Medical record and diagnostic tests reviewed for today's visit: The [facility] EMR was reviewed during the visit IMAGING STUDIES: No new imaging studies were reviewed during this office visit. ASSESSMENT: (M47.816) Lumbar facet joint syndrome (primary encounter diagnosis) (M54.41, G89.29) Chronic right-sided low back pain with right-sided sciatica Discussion: A discussion was entertained regarding multicomponent pain source. Discussed conservative options and focus on improvement of function and the concerns of ongoing or developing chronic pain. Discussed the rationale behind interventional approach and how it can facilitate improvement of pain but also diagnostic information that procedures provide. 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 PLAN: 1. The patient predominant pain is the lower back region and clinically due to lumbar facet syndrome. Recommended diagnostic/therapeutic injection option. 2. Pain interventional procedure recommended: Bilateral L4-5 and L5-S1 lumbar facet injection 3. No new medication was prescribed. 4. Counseled patient regarding the importance of activity modification and exercise. 5. Follow up: 2 to 4 weeks postinjection The above plan and management options were discussed with patient. The patient is in agreement with the above and verbalized understanding. I have discussed and confirmed the above treatment plan with the patient and I have reviewed the nurses notes and I am aware of the family/social history. I have confirmed ROS findings. Dilan Garcia MD 1. This document has been created with the use of voice recognition technology. It may contain inaccuracies: (e.g. misspellings, inaccurate syntax or word sense) that have escaped review. 2. The nurse practitioner, nursing staff and medical assistants are a major part of YOUR TREATMENT TEAM and will be handling your phone calls and inquiries, if any. Unless explicitly told otherwise at the time of your office visit, your study results and ensuing treatment plans will be discussed during your follow-up appointment. If you do not have a follow-up appointment and wish to discuss any issues, please set up an appointment. 3. It is my practice to not fill disability or any other insurance-related forms/documentation. All of the office notes, study results, and other pertinent documentation generated as part of your evaluation will be available to you and to your Primary Care Physician (PCP). Use of this material to complete such forms will be at the discretion of your PCP/referring physician. September 03, 2023 cc: Lawrence Howard [phone] [facility] [id number] Results of consultation to be transmitted via electronic medical record for those providers who practice within [facility] or with access to [employer] via [employer], or via letter. documented in this encounter [facility] 08-14-2023 Miscellaneous Notes Pt. informed mailed to Pt. as requested. Letter for restrictions for patient created and printed. Please give to patient Lawrence Yvonne DO Lee Images from the original note were not included. Please see pt message- Saad Shira Doe Wstr Famp My Chart Rx Pool (supporting Lawrence Yvonne DO Lee) 5 hours ago (7:18 AM) RM I have been waiting on a letter/note related to a restriction for doing SCM restraints due to a back issue. It is now going on week 3 and I still do not have said letter. I called for several times the week of 07/30. I was asked for more information twice which I gave to 3 different people. I understand that Dr. Howard was out but was not told the other person was out until 08/02 or 08/03. I have explained why I need the letter and still nothing. The training my be done but I still need the letter for my file. There is at least [address] Howard from last year and another from the spine Dr (I haven't seen her for 6-7months). I am very disappointed in how the office has treated this issue. I would like to get the letter please. documented in this encounter [facility] 08-13-2023 Miscellaneous Notes Patient phones requesting refills as follows: Requested Prescriptions Pending Prescriptions Disp Refills ondansetron orally disintegrating (ZOFRAN ODT) 4 mg disintegrating tablet 20 tablet 1 Sig: Take 1 tablet by mouth every 8 hours as needed for nausea/vomiting. RAFAEL-06/26/23 Labs-02/02/23 NOV-10/06/23 Please review and advise. Yin Ryan LPN documented in this encounter [facility] 08-13-2023 Miscellaneous Notes Turned into MANUEL Polk Ma documented in this encounter [facility] 07-30-2023 Miscellaneous Notes This patient gave consent to this Medical Advice Message and is aware that it may result in a bill to their insurance, as well as the possibility of receiving a bill for a copay and/or deductible. They are an established patient, but are not seeking information exclusively about a problem treated during an in person or video visit in the last seven days. I did not recommend an in person or video visit within seven days of my reply. See the zSoup message reply for my assessment and plan. I spent a total of 7 minutes reviewing the patient's prior medical records and current request for medical advice, prescribing medications or ordering tests (if applicable), replying to the patient, and documenting the encounter. documented in this encounter [facility] 07-21-2023 Note HNO ID: [id number] Author: Noah Morgan APRN.[employer] SEC[employer] SCREENER Service: ? Author Type: Nurse Practitioner Type: Progress Notes Filed: 07/21/2023 1:43 PM Note Text: CC: Patient presents with: Cough: Cough, congestion and ST-has had all summer HPI: Saad Villafana is a 48 year old female who presents to the office with complaint of head congestion, cough, nonproductive, and sore throat for a week. Symptoms are worsening Associated symptoms includes cough has been all summer but last week its been worse. Denies fever, nausea, vomiting , and diarrhea. Treatments tried include nothing so far. with no relief of symptoms. Sick contacts: unknown. History of asthma, frequent episodes of bronchitis, chronic bronchitis, bronchiectasis or COPD: No Smoker: No Seasonal/environmental allergies: No The ROS is otherwise negative. The patient's pmh, medications, allergies, and past visits are reviewed. PHYSICAL EXAM: BP 128/82 Pulse (!) 132 Temp 37.3 ?C (99.2 ?F) (Tympanic) Resp 18 Wt 98.6 kg (217 lb 6.4 oz) LMP 03/06/2022 (Approximate) SpO2 98% BMI 34.32 kg/m? General appearance: alert, cooperative, pleasant, in no acute distress Head: Normocephalic Eyes: EOM's intact, conjunctiva pink and moist, no icterus, sclera white, non-injected Ears: Right ear: External ear/canal- Normal, TM - clear with good landmarks. Left ear: External ear/canal- Normal, TM - clear with good landmarks Oropharynx:moist without lesions, No erythema, exudates or tonsillar hypertrophy. Heart: Negative. RRR without obvious murmur, gallop, or rubs. No ectopy. Lungs: clear to auscultation, without rales or wheeze, good air exchange PAST MEDICAL HISTORY Diagnosis Date Anxiety Arthritis Depression Hypertension Low vitamin D level 07/30/2018 Migraines Thyroid disease PAST SURGICAL HISTORY Procedure Laterality Date DELIVERY ONLY 10/22/2007 , low transverse COLONOSCOPY SCREENING 03/02/2023 CONIZATION CERVIX W/WO DANDC RPR ELTRD EXC 10/22/1994 LEEP-Cervix CYST ASPIRATION Left 12/18/2022 KNEE ARTHROSCOPY 10/22/1984 Left SEPTOPLASTY/SUBMUCOUS RESECJ W/WO CARTILAGE GRF 10/22/2011 TONSILLECTOMY HX ALLERGIES Amoxicillin, Adhesive, Latex, and Seasonal Allergies MEDICATIONS potassium chloride ER (KLOR-CON M10) 10 mEq tablet Take 1 tablet by mouth twice daily. lisinopril (ZESTRIL) 5 mg tablet Take 1 tablet by mouth once daily. hydrocortisone (ANUSOL-HC) 2.5 % rectal cream by RECTAL route twice daily as needed (external hemorrhoids). External hemorrhoids gabapentin (NEURONTIN) 300 mg capsule Take 1 capsule in the morning and 1 capsule at bedtime for 3 days. If tolerated, okay to increase to 1 in the morning, 1 at lunch and 1 at bedtime. Cholecalciferol, Vitamin D3, 125 mcg (5,000 unit) cap Take 1 capsule by mouth once daily. cyanocobalamin (VITAMIN B-12) 1,000 mcg tab Take 1 tablet by mouth once daily. buPROPion XL (WELLBUTRIN XL) 300 mg 24 hr tablet Take 1 tablet by mouth once daily. topiramate (TOPAMAX) 200 mg tablet Take 1 tablet by mouth twice daily. cyclobenzaprine (FLEXERIL) 10 mg tablet Take 1 tablet by mouth three times daily as needed for muscle spasm. rizatriptan (MAXALT) 10 mg tablet Take 1 tablet by mouth at first sign of headache/migraine. May take again in 2 hours if necessary. Blood Pressure Monitor (BLOOD PRESSURE KIT) 1 Each once daily. loratadine (CLARITIN) 10 mg tablet Take 1 tablet by mouth once daily. acetaminophen 325 mg-caffeine 40 mg-butalbital 50 mg (FIORICET) per tablet Take 1 tablet by mouth once daily as needed for headache (migraine headache). traZODone (DESYREL) 50 mg tablet Take 2 tablets by mouth daily at bedtime. ondansetron orally disintegrating (ZOFRAN ODT) 4 mg disintegrating tablet Take 1 tablet by mouth every 8 hours as needed for nausea/vomiting. meclizine (ANTIVERT) 25 mg tab Take 1 tablet by mouth three times daily. METHOTREXATE ORAL Take by mouth. hydroxychloroquine (PLAQUENIL) 200 mg tablet Take 200 mg by mouth twice daily. escitalopram oxalate (LEXAPRO) 20 mg tablet Take 0.5 tablets by mouth once daily. (Patient not taking: Reported on 07/21/2023) FAMILY HISTORY Problem Relation Age of Onset other (HTN) Father Emphysema Paternal Grandfather Social History Tobacco Use Smoking status: Never Smokeless tobacco: Never Substance Use Topics Alcohol use: Not Currently Drug use: No ASSESSMENT/PLAN: 1. Acute cough - ICD9: 786.2, ICD10: R05.1 - XR CHEST 2V FRONTAL/LAT * * * Physician Interpretation * * * * EXAMINATION: CHEST RADIOGRAPH (2 VIEW FRONTAL AND LATERAL) CLINICAL HISTORY: Acute cough MQ: XC2_6 EXAM DATE/TIME: 07/21/2023 12:02 PM COMPARISON: 01/29/2023. RESULT: Lines, tubes, and devices: None. Lungs and pleura: No consolidation. No lung mass. No pleural effusion. No pneumothorax. Cardiomediastinal silhouette: Normal cardiomediastinal silhouette. Bones and soft tissues: (more content not included)... [facility] 07-21-2023 Note HNO ID: [id number] Author: Alec aMrquez RT(R) Service: ? Author Type: Technologist Type: Progress Notes Filed: 07/21/2023 11:56 AM Note Text: Radiology Service Progress Note PATIENT NAME: Saad Villafana DATE OF SERVICE: July 21, 2023 TIME: 11:51 AM PATIENT IDENTITY VERIFICATION COMPLETED USING TWO (2) IDENTIFIERS: Name and Date of confirmed by patient verbally. FALL SCREENING: Has the patient had 2 falls in the last year or 1 fall with injury or currently using an Ambulatory Assistive Device (Walker, Cane, Wheelchair, Crutches, etc.)? No PATIENT GENDER DATA: Female. status: : No status: NO. PATIENT RELEVANT IMPLANT DATA REVIEWED: Not Applicable RADIOLOGY DEPARTMENT: General X-ray: Exam(s) Completed: Chest X-Ray PERIPHERAL IV DATA: Not applicable SIGNED BY: RT Randee(R) July 21, 2023 11:51 AM [facility] 07-21-2023 History of Present illness Narrative CC: Patient presents with: Cough: Cough, congestion and ST-has had all summer HPI: Saad Villafana is a 48 year old female who presents to the office with complaint of head congestion, cough, nonproductive, and sore throat for a week. Symptoms are worsening Associated symptoms includes cough has been all summer but last week its been worse. Denies fever, nausea, vomiting , and diarrhea. Treatments tried include nothing so far. with no relief of symptoms. Sick contacts: unknown. History of asthma, frequent episodes of bronchitis, chronic bronchitis, bronchiectasis or COPD: No Smoker: No Seasonal/environmental allergies: No The ROS is otherwise negative. The patient's pmh, medications, allergies, and past visits are reviewed. PHYSICAL EXAM: BP 128/82 Pulse (!) 132 Temp 37.3 C (99.2 F) (Tympanic) Resp 18 Wt 98.6 kg (217 lb 6.4 oz) LMP 03/06/2022 (Approximate) SpO2 98% BMI 34.32 kg/m General appearance: alert, cooperative, pleasant, in no acute distress Head: Normocephalic Eyes: EOM's intact, conjunctiva pink and moist, no icterus, sclera white, non-injected Ears: Right ear: External ear/canal- Normal, TM - clear with good landmarks. Left ear: External ear/canal- Normal, TM - clear with good landmarks Oropharynx:moist without lesions, No erythema, exudates or tonsillar hypertrophy. Heart: Negative. RRR without obvious murmur, gallop, or rubs. No ectopy. Lungs: clear to auscultation, without rales or wheeze, good air exchange PAST MEDICAL HISTORY Diagnosis Date Anxiety Arthritis Depression Hypertension Low vitamin D level 07/30/2018 Migraines Thyroid disease PAST SURGICAL HISTORY Procedure Laterality Date DELIVERY ONLY 10/22/2007 , low transverse COLONOSCOPY SCREENING 03/02/2023 CONIZATION CERVIX W/WO D&C RPR ELTRD EXC 10/22/1994 LEEP-Cervix CYST ASPIRATION Left 12/18/2022 KNEE ARTHROSCOPY 10/22/1984 Left SEPTOPLASTY/SUBMUCOUS RESECJ W/WO CARTILAGE GRF 10/22/2011 TONSILLECTOMY HX ALLERGIES Amoxicillin, Adhesive, Latex, and Seasonal Allergies MEDICATIONS potassium chloride ER (KLOR-CON M10) 10 mEq tablet Take 1 tablet by mouth twice daily. lisinopril (ZESTRIL) 5 mg tablet Take 1 tablet by mouth once daily. hydrocortisone (ANUSOL-HC) 2.5 % rectal cream by RECTAL route twice daily as needed (external hemorrhoids). External hemorrhoids gabapentin (NEURONTIN) 300 mg capsule Take 1 capsule in the morning and 1 capsule at bedtime for 3 days. If tolerated, okay to increase to 1 in the morning, 1 at lunch and 1 at bedtime. Cholecalciferol, Vitamin D3, 125 mcg (5,000 unit) cap Take 1 capsule by mouth once daily. cyanocobalamin (VITAMIN B-12) 1,000 mcg tab Take 1 tablet by mouth once daily. buPROPion XL (WELLBUTRIN XL) 300 mg 24 hr tablet Take 1 tablet by mouth once daily. topiramate (TOPAMAX) 200 mg tablet Take 1 tablet by mouth twice daily. cyclobenzaprine (FLEXERIL) 10 mg tablet Take 1 tablet by mouth three times daily as needed for muscle spasm. rizatriptan (MAXALT) 10 mg tablet Take 1 tablet by mouth at first sign of headache/migraine. May take again in 2 hours if necessary. Blood Pressure Monitor (BLOOD PRESSURE KIT) 1 Each once daily. loratadine (CLARITIN) 10 mg tablet Take 1 tablet by mouth once daily. acetaminophen 325 mg-caffeine 40 mg-butalbital 50 mg (FIORICET) per tablet Take 1 tablet by mouth once daily as needed for headache (migraine headache). traZODone (DESYREL) 50 mg tablet Take 2 tablets by mouth daily at bedtime. ondansetron orally disintegrating (ZOFRAN ODT) 4 mg disintegrating tablet Take 1 tablet by mouth every 8 hours as needed for nausea/vomiting. meclizine (ANTIVERT) 25 mg tab Take 1 tablet by mouth three times daily. METHOTREXATE ORAL Take by mouth. hydroxychloroquine (PLAQUENIL) 200 mg tablet Take 200 mg by mouth twice daily. escitalopram oxalate (LEXAPRO) 20 mg tablet Take 0.5 tablets by mouth once daily. (Patient not taking: Reported on 07/21/2023) FAMILY HISTORY Problem Relation Age of Onset other (HTN) Father Emphysema Paternal Grandfather Social History Tobacco Use Smoking status: Never Smokeless tobacco: Never Substance Use Topics Alcohol use: Not Currently Drug use: No ASSESSMENT/PLAN: 1. Acute cough - ICD9: 786.2, ICD10: R05.1 - XR CHEST 2V FRONTAL/LAT * * * Physician Interpretation * * * * EXAMINATION: CHEST RADIOGRAPH (2 VIEW FRONTAL & LATERAL) CLINICAL HISTORY: Acute cough MQ: XC2_6 EXAM DATE/TIME: 07/21/2023 12:02 PM COMPARISON: 01/29/2023. RESULT: Lines, tubes, and devices: None. Lungs and pleura: No consolidation. No lung mass. No pleural effusion. No pneumothorax. Cardiomediastinal silhouette: Normal cardiomediastinal silhouette. Bones and soft tissues: Unremarkable. IMPRESSION IMPRESSION: Stable and unremarkable exam with no acute radiographic abnormality. Enologist: DOMINIQUE Transcribe Date/Time: Jul 21 2023 1:32P Dictated by : PAOLA GRAHAM MD - PREDNISONE 20 MG TABLET - BENZONATATE 100 MG CAPSULE 2. Rhinosinusitis - ICD9: 473.9, ICD10: J31.0, J32.9 - DOXYCYCLINE HYCLATE 100 MG TABLET Prescription instructions reviewed with patient as applicable. Potential red flag symptoms discussed with the patient. Reviewed appropriate action plan to take if red flag symptoms occur. Patient agreeable to treatment plan. Noah Morgan APRN.[employer] SCREENER documented in this encounter [facility] 07-20-2023 Miscellaneous Notes Pt called and is notified of providers results. Pt voices understanding. Ana Dickerson RN Please inform patient that her PAP is normal Lawrence Howard DO documented in this encounter [facility] 07-11-2023 Note HNO ID: [id number] Author: Alec Maqruez RT(R) Service: ? Author Type: Technologist Type: Progress Notes Filed: 07/11/2023 9:19 AM Note Text: Radiology Service Progress Note PATIENT NAME: Saad Villafana DATE OF SERVICE: July 11, 2023 TIME: 9:10 AM PATIENT IDENTITY VERIFICATION COMPLETED USING TWO (2) IDENTIFIERS: Name and Date of confirmed by patient verbally. FALL SCREENING: Has the patient had 2 falls in the last year or 1 fall with injury or currently using an Ambulatory Assistive Device (Walker, Cane, Wheelchair, Crutches, etc.)? No PATIENT GENDER DATA: Female. status: : No status: NO. PATIENT RELEVANT IMPLANT DATA REVIEWED: Not Applicable RADIOLOGY DEPARTMENT: Bone Density PERIPHERAL IV DATA: Not applicable SIGNED BY: RT Randee(R) July 11, 2023 9:10 AM [facility] 07-11-2023 History of Present illness Narrative Radiology Service Progress Note PATIENT NAME: Saad Villafana DATE OF SERVICE: July 11, 2023 TIME: 9:10 AM PATIENT IDENTITY VERIFICATION COMPLETED USING TWO (2) IDENTIFIERS: Name and Date of confirmed by patient verbally. FALL SCREENING: Has the patient had 2 falls in the last year or 1 fall with injury or currently using an Ambulatory Assistive Device (Walker, Cane, Wheelchair, Crutches, etc.)? No PATIENT GENDER DATA: Female. status: : No status: NO. PATIENT RELEVANT IMPLANT DATA REVIEWED: Not Applicable RADIOLOGY DEPARTMENT: Bone Density PERIPHERAL IV DATA: Not applicable SIGNED BY: RT Randee(R) July 11, 2023 9:10 AM documented in this encounter [facility] 06-28-2023 Miscellaneous Notes Noted, thank you. Vicente Lakhani APRN.[employer]NACIO Patient returns call and provider message reviewed. Patient declined appointment. Patient reports that she has been seen multiple times by other providers and has been told it is her allergies patient was wanting Dr. Howard's recommendation. She will just deal with it. Guera Cast RN Left detailed message on Event[employer] informing pt to contact office to schedule appt. Nisreen Polk She needs to schedule an appointment for this. Vicente Lakhani APRN.IGNACIO Pt informed, verbalized understanding. Pt reports she has had a cough since february and left side of throat hurts now. Reports she is gagging. Asking if she should start a medication ? Please advise. Pt did see Dr. Howard on 06/26 and forgot to mention this concern. Nisreen Polk Please inform patient that her xray of her left knee is normal. Her xray of her low back shows some degenerative osteoarthritis changes but no signs of instability of the spine. Can consider PHYSICAL THERAPY and also can consider pain mgmt for injections if interested. Awaiting her ultrasound of her left posterior leg to see if a Quispe's cyst is present. Lawrence Howard DO documented in this encounter [facility] 06-26-2023 Note HNO ID: [id number] Author: Yoselyn Apple RT(R) Service: Radiology Author Type: Technologist Type: Progress Notes Filed: 06/26/2023 9:47 AM Note Text: Radiology Service Progress Note PATIENT NAME: Saad Villafana DATE OF SERVICE: June 26, 2023 TIME: 9:30 AM PATIENT IDENTITY VERIFICATION COMPLETED USING TWO (2) IDENTIFIERS: Name and Date of confirmed by patient verbally. FALL SCREENING: Has the patient had 2 falls in the last year or 1 fall with injury or currently using an Ambulatory Assistive Device (Walker, Cane, Wheelchair, Crutches, etc.)? No PATIENT GENDER DATA: Female. status: : No status: NO. PATIENT RELEVANT IMPLANT DATA REVIEWED: Not Applicable RADIOLOGY DEPARTMENT: General X-ray: Exam(s) Completed: Spine X-Ray(s): Lumbar AP / LAT / L5-S1 Lower Extremity X-Ray(s): Knee, AP / Lat / Tunne / Merchant Left and Wt. Bearing PERIPHERAL IV DATA: Not applicable SIGNED BY: RT Zia(Iwona) June 26, 2023 9:30 AM [facility] 06-26-2023 Note HNO ID: [id number] Author: Lawrence Howard DO Service: ? Author Type: Physician Type: Progress Notes Filed: 06/26/2023 10:51 AM Note Text: CC: Saad Villafana is a 48 year old female who presents to the office for several concerns HPI: Right low back pain, recently aggravated and increased in intensity. Hx of lumbar spine DJD and DDD and cyst present. Was seen by pain mgmt in Oct for injection due to left low back pain. Now on the right side, no recent injuries. No bowel or bladder changes or weakness in legs. Left knee pain, hx of left knee arthroscopic procedure years ago for tendon injury when younger. Recently has been bothering her with weight bearing, walking, standing. No recent injuries. Feels swollen and aching discomfort. Has tried voltaren on this with minimal relief. Sometimes use of ice and heating pad as well Graves disease, in remission, following up with [employer] yearly now Obesity, trying hard to lose weight. Only has had 2 menses in the last year. Has been told by MEDICAL DETAILIST that she is perimenopausal PAST MEDICAL HISTORY Diagnosis Date Anxiety Arthritis Depression Hypertension Low vitamin D level 07/30/2018 Migraines Thyroid disease PAST SURGICAL HISTORY Procedure Laterality Date DELIVERY ONLY 10/22/2007 , low transverse COLONOSCOPY SCREENING 03/02/2023 CONIZATION CERVIX W/WO DANDC RPR ELTRD EXC 10/22/1994 LEEP-Cervix CYST ASPIRATION Left 12/18/2022 KNEE ARTHROSCOPY 10/22/1984 Left SEPTOPLASTY/SUBMUCOUS RESECJ W/WO CARTILAGE GRF 10/22/2011 TONSILLECTOMY HX Social History: Social History Tobacco Use Smoking status: Never Smokeless tobacco: Never Substance Use Topics Alcohol use: Not Currently Drug use: No FAMILY HISTORY Problem Relation Age of Onset other (HTN) Father Emphysema Paternal Grandfather Current Outpatient prescriptions: lisinopril (ZESTRIL) 5 mg tablet Take 1 tablet by mouth once daily. hydrocortisone (ANUSOL-HC) 2.5 % rectal cream by RECTAL route twice daily as needed (external hemorrhoids). External hemorrhoids gabapentin (NEURONTIN) 300 mg capsule Take 1 capsule in the morning and 1 capsule at bedtime for 3 days. If tolerated, okay to increase to 1 in the morning, 1 at lunch and 1 at bedtime. Cholecalciferol, Vitamin D3, 125 mcg (5,000 unit) cap Take 1 capsule by mouth once daily. potassium chloride ER (KLOR-CON M10) 10 mEq tablet Take 1 tablet by mouth twice daily. cyanocobalamin (VITAMIN B-12) 1,000 mcg tab Take 1 tablet by mouth once daily. buPROPion XL (WELLBUTRIN XL) 300 mg 24 hr tablet Take 1 tablet by mouth once daily. topiramate (TOPAMAX) 200 mg tablet Take 1 tablet by mouth twice daily. cyclobenzaprine (FLEXERIL) 10 mg tablet Take 1 tablet by mouth three times daily as needed for muscle spasm. rizatriptan (MAXALT) 10 mg tablet Take 1 tablet by mouth at first sign of headache/migraine. May take again in 2 hours if necessary. Blood Pressure Monitor (BLOOD PRESSURE KIT) 1 Each once daily. loratadine (CLARITIN) 10 mg tablet Take 1 tablet by mouth once daily. acetaminophen 325 mg-caffeine 40 mg-butalbital 50 mg (FIORICET) per tablet Take 1 tablet by mouth once daily as needed for headache (migraine headache). traZODone (DESYREL) 50 mg tablet Take 2 tablets by mouth daily at bedtime. ondansetron orally disintegrating (ZOFRAN ODT) 4 mg disintegrating tablet Take 1 tablet by mouth every 8 hours as needed for nausea/vomiting. meclizine (ANTIVERT) 25 mg tab Take 1 tablet by mouth three times daily. METHOTREXATE ORAL Take by mouth. hydroxychloroquine (PLAQUENIL) 200 mg tablet Take 200 mg by mouth twice daily. escitalopram oxalate (LEXAPRO) 20 mg tablet Take 0.5 tablets by mouth once daily. Allergies: ALLERGIES Allergen Reactions Amoxicillin Rash Adhesive Rash, Other: See Comments Rash like blisters Latex Other: See Comments Blistering rash Seasonal Allergies Other: See Comments Nasal congestion, itchy eyes ROS: See HPI PE: 06/26/23 0810 BP: 120/60 Pulse: 60 Resp: 16 Temp: 36.4 ?C (97.5 ?F) TempSrc: Left Tympanic Weight: 98.4 kg (217 lb) Gen: AANDO, NAD, non-toxic appearing, Pleasant, cooperative HEENT: NT/AC, PERRLA, EOMs intact b/l, nares clear and patent b/l, pharynx without erythema, exudate or lesions. Uvula midline, wearing glasses Neck: supple, No cervical LAD, no thyromegaly, no carotid bruits CV: RRR, normal S1 and S2, no murmurs, no gallops, no rubs, Pulses 2+ and symmetric in UE and LE b/l Lungs: normal respiratory effort, CTA b/l, no wheezing or rhonchi or rales MS: left knee with posterior swelling and TTP and mild joint effusion present with generalized soreness without obvious signs of instability Reduced ROM lumbar spine due to discomfort in right lower back and SI joint and into right gluteal area Neuro: CN II-XII intact b/l, see above Skin: warm, dry, intact, No rashes or lesions on exposed skin. (more content not included)... [facility] 06-26-2023 Instructions Lawrence Howard DO - 06/26/2023 8:52 AM EDT Vitamin E 400 mg twice a day or 800 mg once a day to help with the fatty liver disease Pills Adipex Contrave Qsymia Injectables Ozempia Sayunjaro Dustingovy documented in this encounter [facility] 06-26-2023 History of Present illness Narrative CC: Saad Villafana is a 48 year old female who presents to the office for several concerns HPI: Right low back pain, recently aggravated and increased in intensity. Hx of lumbar spine DJD and DDD and cyst present. Was seen by pain mgmt in Oct for injection due to left low back pain. Now on the right side, no recent injuries. No bowel or bladder changes or weakness in legs. Left knee pain, hx of left knee arthroscopic procedure years ago for tendon injury when younger. Recently has been bothering her with weight bearing, walking, standing. No recent injuries. Feels swollen and aching discomfort. Has tried voltaren on this with minimal relief. Sometimes use of ice and heating pad as well Graves disease, in remission, following up with [employer] yearly now Obesity, trying hard to lose weight. Only has had 2 menses in the last year. Has been told by MEDICAL DETAILIST that she is perimenopausal PAST MEDICAL HISTORY Diagnosis Date Anxiety Arthritis Depression Hypertension Low vitamin D level 07/30/2018 Migraines Thyroid disease PAST SURGICAL HISTORY Procedure Laterality Date DELIVERY ONLY 10/22/2007 , low transverse COLONOSCOPY SCREENING 03/02/2023 CONIZATION CERVIX W/WO D&C RPR ELTRD EXC 10/22/1994 LEEP-Cervix CYST ASPIRATION Left 12/18/2022 KNEE ARTHROSCOPY 10/22/1984 Left SEPTOPLASTY/SUBMUCOUS RESECJ W/WO CARTILAGE GRF 10/22/2011 TONSILLECTOMY HX Social History: Social History Tobacco Use Smoking status: Never Smokeless tobacco: Never Substance Use Topics Alcohol use: Not Currently Drug use: No FAMILY HISTORY Problem Relation Age of Onset other (HTN) Father Emphysema Paternal Grandfather Current Outpatient prescriptions: lisinopril (ZESTRIL) 5 mg tablet Take 1 tablet by mouth once daily. hydrocortisone (ANUSOL-HC) 2.5 % rectal cream by RECTAL route twice daily as needed (external hemorrhoids). External hemorrhoids gabapentin (NEURONTIN) 300 mg capsule Take 1 capsule in the morning and 1 capsule at bedtime for 3 days. If tolerated, okay to increase to 1 in the morning, 1 at lunch and 1 at bedtime. Cholecalciferol, Vitamin D3, 125 mcg (5,000 unit) cap Take 1 capsule by mouth once daily. potassium chloride ER (KLOR-CON M10) 10 mEq tablet Take 1 tablet by mouth twice daily. cyanocobalamin (VITAMIN B-12) 1,000 mcg tab Take 1 tablet by mouth once daily. buPROPion XL (WELLBUTRIN XL) 300 mg 24 hr tablet Take 1 tablet by mouth once daily. topiramate (TOPAMAX) 200 mg tablet Take 1 tablet by mouth twice daily. cyclobenzaprine (FLEXERIL) 10 mg tablet Take 1 tablet by mouth three times daily as needed for muscle spasm. rizatriptan (MAXALT) 10 mg tablet Take 1 tablet by mouth at first sign of headache/migraine. May take again in 2 hours if necessary. Blood Pressure Monitor (BLOOD PRESSURE KIT) 1 Each once daily. loratadine (CLARITIN) 10 mg tablet Take 1 tablet by mouth once daily. acetaminophen 325 mg-caffeine 40 mg-butalbital 50 mg (FIORICET) per tablet Take 1 tablet by mouth once daily as needed for headache (migraine headache). traZODone (DESYREL) 50 mg tablet Take 2 tablets by mouth daily at bedtime. ondansetron orally disintegrating (ZOFRAN ODT) 4 mg disintegrating tablet Take 1 tablet by mouth every 8 hours as needed for nausea/vomiting. meclizine (ANTIVERT) 25 mg tab Take 1 tablet by mouth three times daily. METHOTREXATE ORAL Take by mouth. hydroxychloroquine (PLAQUENIL) 200 mg tablet Take 200 mg by mouth twice daily. escitalopram oxalate (LEXAPRO) 20 mg tablet Take 0.5 tablets by mouth once daily. Allergies: ALLERGIES Allergen Reactions Amoxicillin Rash Adhesive Rash, Other: See Comments Rash like blisters Latex Other: See Comments Blistering rash Seasonal Allergies Other: See Comments Nasal congestion, itchy eyes ROS: See HPI PE: 06/26/23 0810 BP: 120/60 Pulse: 60 Resp: 16 Temp: 36.4 C (97.5 F) TempSrc: Left Tympanic Weight: 98.4 kg (217 lb) Gen: A&O, NAD, non-toxic appearing, Pleasant, cooperative HEENT: NT/AC, PERRLA, EOMs intact b/l, nares clear and patent b/l, pharynx without erythema, exudate or lesions. Uvula midline, wearing glasses Neck: supple, No cervical LAD, no thyromegaly, no carotid bruits CV: RRR, normal S1 and S2, no murmurs, no gallops, no rubs, Pulses 2+ and symmetric in UE and LE b/l Lungs: normal respiratory effort, CTA b/l, no wheezing or rhonchi or rales MS: left knee with posterior swelling and TTP and mild joint effusion present with generalized soreness without obvious signs of instability Reduced ROM lumbar spine due to discomfort in right lower back and SI joint and into right gluteal area Neuro: CN II-XII intact b/l, see above Skin: warm, dry, intact, No rashes or lesions on exposed skin. No edema lower legs ASSESSMENT/PLAN: 1. Chronic right-sided low back pain with right-sided sciatica - ICD9: 724.2, 724.3, 338.29, ICD10: M54.41, G89.29 (primary diagnosis) Chronic low back pain - Ice for localized tenderness - Warm moist heat for 20 min three times a day - NSAIDS- see orders - Xrays- see orders Follow up with pain mgmt, likely will need lumbar injection and then consideration of seeing Spine surgeon if not improving - Patient given instructions use of medications as ordered, back care exercise program, improved posture, proper lifting techniques, and intermittent use of heat - XR LUMBAR GENERAL 3V AP/LAT/L5-S1 - CONSULT TO PAIN MGT 2. Osteoarthritis of spine with radiculopathy, lumbar region - ICD9: 721.3, ICD10: M47.26 See above 3. Pain and swelling of left knee - ICD9: 719.46, 719.06, ICD10: M25.562, M25.462 Concerns for Quispe's cyst and OA changes present, hx of arthroscopic surgery years ago. Need for rest, icing and topical and oral NSAIDs. May need to see Orthopedics. - XR KNEE GENERAL 4V AP BOTH/PA BOTH/LAT/MERC LEFT - US LEG VEIN DVT UNL VAS LAB 4. Posterior knee pain, left - ICD9: 719.46, ICD10: M25.562 Concerns for Quispe's cyst and OA changes present, hx of arthroscopic surgery years ago. Need for rest, icing and topical and oral NSAIDs. May need to see Orthopedics. - XR KNEE GENERAL 4V AP BOTH/PA BOTH/LAT/MERC LEFT - US LEG VEIN DVT UNL VAS LAB 5. Screening for osteoporosis - ICD9: V82.81, ICD10: Z13.820 - DXA-AXIAL SKELETON 6. Obesity, Class I, BMI 30-34.9 - ICD9: 278.00, ICD10: E66.9 Consider weight loss medication in future for her Lawrence Howard DO To ER if develops chest pain, shortness of breath, or severe worsening of symptoms. Discussed risks, benefits, alternatives, and potential side effects of medications. Patient expressed understanding and agreed with the plan. Lawrence Howard DO [address] [place] [address] documented in this encounter [facility] 06-15-2023 Miscellaneous Notes Requested Prescriptions Pending Prescriptions Disp Refills lisinopril (ZESTRIL) 5 mg tablet 30 tablet 1 Sig: Take 1 tablet by mouth once daily. RAFAEL- 06/01/2023 NOV- 06/26/2023 Nisreen Polk documented in this encounter [facility] 06-11-2023 Miscellaneous Notes Patient has been identified by name and date of : Yes Patient phones for refill(s): Requested Prescriptions Pending Prescriptions Disp Refills hydrocortisone (ANUSOL-HC) 2.5 % rectal cream 28 g 1 Sig: by RECTAL route twice daily as needed (external hemorrhoids). External hemorrhoids gabapentin (NEURONTIN) 300 mg capsule 90 capsule 0 Sig: Take 1 capsule in the morning and 1 capsule at bedtime for 3 days. If tolerated, okay to increase to 1 in the morning, 1 at lunch and 1 at bedtime. Date of last office visit in primary care: RAFAEL 06/01/23 NOV 06/15/23 Last 2 Encounter Wt Readings: Date: Wt: 06/01/2023 99.7 kg (219 lb 12.8 oz) 05/04/2023 99.8 kg (220 lb) Please advise. Thank you. JESS Watson documented in this encounter [facility] 06-01-2023 Note HNO ID: [id number] Author: Ирина Moyer APRN.[employer] SCREENER Service: ? Author Type: Nurse Practitioner Type: Progress Notes Filed: 06/01/2023 12:47 PM Note Text: Chief Complaint Patient presents with: ears halima feel full of fluid pressure: Cough , runny nose halima ears pressure, pressure behind eyes, going on for a couple months went to urgent care once and gave atb did nothing. HPI Saad Villafana is a 48 year old female who presents here today for Above Complaints. Saad is an established patient of Dr. Lee DO. She is a new patient to me today. Concerns today... Per [employer] message: I have been having some issues with I think it's allergy symptoms. My ears are clogged, and I still have fluid in one or both, I can't breathe out of my nose well, and I have had a cough for about 2 1/2 months. Should I get a Kenalog injection, or do you think this is something else? Thank you!! Pt reports frontal sinus pressure, fullness/clogged bilateral ear sensation. Pt reports taking daily OTC Flonase and Claritin without much relief. Long hx of severe allergies, has been given kenelog injection in the past with relief x 8 months. Also has had biweekly allergy shot that she cannot remember the name of in the past. Was given doxycycline for acute effusion of R ear on 03/29 that did not seem to improve her sinus pressure and fullness symptoms at that time. Past medical history, appointments, medications, allergies reviewed. Previous Medical History PAST MEDICAL HISTORY Diagnosis Date Anxiety Arthritis Depression Hypertension Low vitamin D level 07/30/2018 Migraines Thyroid disease Previous Surgical History PAST SURGICAL HISTORY Procedure Laterality Date DELIVERY ONLY 10/22/2007 , low transverse COLONOSCOPY SCREENING 03/02/2023 CONIZATION CERVIX W/WO DANDC RPR ELTRD EXC 10/22/1994 LEEP-Cervix CYST ASPIRATION Left 12/18/2022 KNEE ARTHROSCOPY 10/22/1984 Left SEPTOPLASTY/SUBMUCOUS RESECJ W/WO CARTILAGE GRF 10/22/2011 TONSILLECTOMY HX Family History FAMILY HISTORY Problem Relation Age of Onset other (HTN) Father Emphysema Paternal Grandfather Patient Allergies ALLERGIES Allergen Reactions Amoxicillin Rash Adhesive Rash, Other: See Comments Rash like blisters Latex Other: See Comments Blistering rash Seasonal Allergies Other: See Comments Nasal congestion, itchy eyes Current Medications Current Outpatient Medications on File Prior to Visit Medication Sig Cholecalciferol, Vitamin D3, 125 mcg (5,000 unit) cap Take 1 capsule by mouth once daily. potassium chloride ER (KLOR-CON M10) 10 mEq tablet Take 1 tablet by mouth twice daily. cyanocobalamin (VITAMIN B-12) 1,000 mcg tab Take 1 tablet by mouth once daily. gabapentin (NEURONTIN) 300 mg capsule Take 1 capsule in the morning and 1 capsule at bedtime for 3 days. If tolerated, okay to increase to 1 in the morning, 1 at lunch and 1 at bedtime. escitalopram oxalate (LEXAPRO) 20 mg tablet Take 0.5 tablets by mouth once daily. buPROPion XL (WELLBUTRIN XL) 300 mg 24 hr tablet Take 1 tablet by mouth once daily. topiramate (TOPAMAX) 200 mg tablet Take 1 tablet by mouth twice daily. cyclobenzaprine (FLEXERIL) 10 mg tablet Take 1 tablet by mouth three times daily as needed for muscle spasm. lisinopril (ZESTRIL) 5 mg tablet Take 1 tablet by mouth once daily. rizatriptan (MAXALT) 10 mg tablet Take 1 tablet by mouth at first sign of headache/migraine. May take again in 2 hours if necessary. Blood Pressure Monitor (BLOOD PRESSURE KIT) 1 Each once daily. loratadine (CLARITIN) 10 mg tablet Take 1 tablet by mouth once daily. acetaminophen 325 mg-caffeine 40 mg-butalbital 50 mg (FIORICET) per tablet Take 1 tablet by mouth once daily as needed for headache (migraine headache). traZODone (DESYREL) 50 mg tablet Take 2 tablets by mouth daily at bedtime. ondansetron orally disintegrating (ZOFRAN ODT) 4 mg disintegrating tablet Take 1 tablet by mouth every 8 hours as needed for nausea/vomiting. meclizine (ANTIVERT) 25 mg tab Take 1 tablet by mouth three times daily. METHOTREXATE ORAL Take by mouth. hydrocortisone (ANUSOL-HC) 2.5 % rectal cream by RECTAL route twice daily as needed (external hemorrhoids). External hemorrhoids hydroxychloroquine (PLAQUENIL) 200 mg tablet Take 200 mg by mouth twice daily. No current facility-administered medications on file prior to visit. Social History Social History Tobacco Use Smoking status: Never Smokeless tobacco: Never Substance Use Topics Alcohol use: Not Currently Drug use: No REVIEW OF SYSTEMS: as above Reviewed relevant PMHx, PSHx, Social Hx, current medications and allergies. Review of Symptoms REVIEW OF SYSTEMS See HPI. EXAM: BP 130/80 (BP Site: Left Arm, BP Position: Sitting, BP Cuff Size: Large Adult) Pulse 101 Temp 37.1 ?C (98.7 ?F) Resp 14 Wt 99.7 kg (219 lb 12.8 oz) LMP 03/06/2022 (Approxima (more content not included)... [facility] 06-01-2023 Nurse Note Pt receives kenolog 40 mg I'm per order. Pt tolerates well. documented in this encounter [facility] 06-01-2023 History of Present illness Narrative Chief Complaint Patient presents with: ears halima feel full of fluid pressure: Cough , runny nose halima ears pressure, pressure behind eyes, going on for a couple months went to urgent care once and gave atb did nothing. HPI Saad Villafana is a 48 year old female who presents here today for Above Complaints. Saad is an established patient of Dr. Lee DO. She is a new patient to me today. Concerns today... Per [employer]us message: I have been having some issues with I think it's allergy symptoms. My ears are clogged, and I still have fluid in one or both, I can't breathe out of my nose well, and I have had a cough for about 2 1/2 months. Should I get a Kenalog injection, or do you think this is something else? Thank you!! Pt reports frontal sinus pressure, fullness/clogged bilateral ear sensation. Pt reports taking daily OTC Flonase and Claritin without much relief. Long hx of severe allergies, has been given kenelog injection in the past with relief x 8 months. Also has had biweekly allergy shot that she cannot remember the name of in the past. Was given doxycycline for acute effusion of R ear on 03/29 that did not seem to improve her sinus pressure and fullness symptoms at that time. Past medical history, appointments, medications, allergies reviewed. Previous Medical History PAST MEDICAL HISTORY Diagnosis Date Anxiety Arthritis Depression Hypertension Low vitamin D level 07/30/2018 Migraines Thyroid disease Previous Surgical History PAST SURGICAL HISTORY Procedure Laterality Date DELIVERY ONLY 10/22/2007 , low transverse COLONOSCOPY SCREENING 03/02/2023 CONIZATION CERVIX W/WO D&C RPR ELTRD EXC 10/22/1994 LEEP-Cervix CYST ASPIRATION Left 12/18/2022 KNEE ARTHROSCOPY 10/22/1984 Left SEPTOPLASTY/SUBMUCOUS RESECJ W/WO CARTILAGE GRF 10/22/2011 TONSILLECTOMY HX Family History FAMILY HISTORY Problem Relation Age of Onset other (HTN) Father Emphysema Paternal Grandfather Patient Allergies ALLERGIES Allergen Reactions Amoxicillin Rash Adhesive Rash, Other: See Comments Rash like blisters Latex Other: See Comments Blistering rash Seasonal Allergies Other: See Comments Nasal congestion, itchy eyes Current Medications Current Outpatient Medications on File Prior to Visit Medication Sig Cholecalciferol, Vitamin D3, 125 mcg (5,000 unit) cap Take 1 capsule by mouth once daily. potassium chloride ER (KLOR-CON M10) 10 mEq tablet Take 1 tablet by mouth twice daily. cyanocobalamin (VITAMIN B-12) 1,000 mcg tab Take 1 tablet by mouth once daily. gabapentin (NEURONTIN) 300 mg capsule Take 1 capsule in the morning and 1 capsule at bedtime for 3 days. If tolerated, okay to increase to 1 in the morning, 1 at lunch and 1 at bedtime. escitalopram oxalate (LEXAPRO) 20 mg tablet Take 0.5 tablets by mouth once daily. buPROPion XL (WELLBUTRIN XL) 300 mg 24 hr tablet Take 1 tablet by mouth once daily. topiramate (TOPAMAX) 200 mg tablet Take 1 tablet by mouth twice daily. cyclobenzaprine (FLEXERIL) 10 mg tablet Take 1 tablet by mouth three times daily as needed for muscle spasm. lisinopril (ZESTRIL) 5 mg tablet Take 1 tablet by mouth once daily. rizatriptan (MAXALT) 10 mg tablet Take 1 tablet by mouth at first sign of headache/migraine. May take again in 2 hours if necessary. Blood Pressure Monitor (BLOOD PRESSURE KIT) 1 Each once daily. loratadine (CLARITIN) 10 mg tablet Take 1 tablet by mouth once daily. acetaminophen 325 mg-caffeine 40 mg-butalbital 50 mg (FIORICET) per tablet Take 1 tablet by mouth once daily as needed for headache (migraine headache). traZODone (DESYREL) 50 mg tablet Take 2 tablets by mouth daily at bedtime. ondansetron orally disintegrating (ZOFRAN ODT) 4 mg disintegrating tablet Take 1 tablet by mouth every 8 hours as needed for nausea/vomiting. meclizine (ANTIVERT) 25 mg tab Take 1 tablet by mouth three times daily. METHOTREXATE ORAL Take by mouth. hydrocortisone (ANUSOL-HC) 2.5 % rectal cream by RECTAL route twice daily as needed (external hemorrhoids). External hemorrhoids hydroxychloroquine (PLAQUENIL) 200 mg tablet Take 200 mg by mouth twice daily. No current facility-administered medications on file prior to visit. Social History Social History Tobacco Use Smoking status: Never Smokeless tobacco: Never Substance Use Topics Alcohol use: Not Currently Drug use: No REVIEW OF SYSTEMS: as above Reviewed relevant PMHx, PSHx, Social Hx, current medications and allergies. Review of Symptoms REVIEW OF SYSTEMS See HPI. EXAM: BP 130/80 (BP Site: Left Arm, BP Position: Sitting, BP Cuff Size: Large Adult) Pulse 101 Temp 37.1 C (98.7 F) Resp 14 Wt 99.7 kg (219 lb 12.8 oz) LMP 03/06/2022 (Approximate) SpO2 95% BMI 34.70 kg/m General Appearance: Well appearing, alert, in no acute distress, well-hydrated, well nourished.. Skin: Skin color, texture, turgor normal, no suspicious rashes or lesions. Head: Normocephalic, no masses, lesions, tenderness or abnormalities. Eyes: Anicteric sclera. Pupils are equally round and reactive to light. Extraocular movements are intact. . Ears: External ears normal, canals clear, Negative findings: Left tympanic membrane normal. Mobility is good, Right tympanic membrane normal. Mobility is good. Nose/Sinuses: Nares normal, septum midline, mucosa normal, or no drainage. Positive findings: mild frontal sinus tenderness on palpitation. Oropharynx: Lips, mucosa, and tongue normal, teeth and gums normal, oropharynx normal. Neck: Supple, no adenopathy; thyroid symmetric, normal size, no bruits. Lungs: Lungs clear to auscultation. No wheezing, rhonchi, rales.. Heart: RRR without murmur, gallop, or rubs. No ectopy. Health Maintenance List MAMMOGRAM due on 12/27/2021 SHINGRIX VACCINE(1 of 2) due on 02/03/2024 PNEUMOCOCCAL(1 - PCV) due on 02/03/2024 INFLUENZA(1) due on 06/22/2023 PAP TESTING due on 01/18/2024 HPV TESTING due on 01/18/2024 ANNUAL PCP TEAM CHRONIC DISEASE VISIT due on 05/04/2024 BP CONTROLLED (<130/80) due on 05/04/2024 DIABETES SCREEN due on 02/02/2026 LIPID SCREEN due on 02/03/2028 DTAP,TDAP,TD(3 - Td or Tdap) due on 03/07/2032 COLORECTAL CANCER SCREENING due on 03/02/2033 HEPATITIS C SCREENING Completed HIV SCREENING Completed COVID-19 VACCINE Completed HEPATITIS B Discontinued ASSESSMENT/PLAN: 1. Allergy, initial encounter - ICD9: 995.3, ICD10: T78.40XA (primary diagnosis) Kenelog injection in office today. - TRIAMCINOLONE ACETONIDE 40 MG/ML SUSPENSION FOR INJECTION 2. Sinus pressure - ICD9: 478.19, ICD10: J34.89 Zpak x 5 days to cover any concerns for bacterial sinus infection d/t duration of symptoms. - AZITHROMYCIN 250 MG TABLET RTO as needed. Prescription instructions reviewed with patient as applicable. Potential red flag symptoms discussed with the patient. Reviewed appropriate action plan to take if red flag symptoms occur. Patient agreeable to treatment plan. Ирина Roche APRN.[employer] [address] [place] [address] documented in this encounter [facility] 05-21-2023 Miscellaneous Notes Pt agreeable to appt. Arelis Haley Ma Pt offered appt with AD on 06/01/23 at 11:00 am. Appt scheduled, but pt to confirm appt. Arelis Haley Ma Recommended an OV due to OTC treatment not working. Offered to help assist in schedule OV. Arelis Haley Ma documented in this encounter [facility] 05-08-2023 Miscellaneous Notes Patient has been identified by name and date of : Yes Patient phones for refill(s): Requested Prescriptions Pending Prescriptions Disp Refills gabapentin (NEURONTIN) 300 mg capsule 90 capsule 0 Sig: Take 1 capsule in the morning and 1 capsule at bedtime for 3 days. If tolerated, okay to increase to 1 in the morning, 1 at lunch and 1 at bedtime. Date of last office visit in primary care: 02/02/2023 Next appointment scheduled 06/15/2023 Please advise. Thank you. Maritza Redd LPN documented in this encounter [facility] 05-08-2023 Miscellaneous Notes Patient has been identified by name and date of : Yes Patient phones for refill(s): Requested Prescriptions Pending Prescriptions Disp Refills Cholecalciferol, Vitamin D3, 125 mcg (5,000 unit) cap 90 capsule 3 Sig: Take 1 capsule by mouth once daily. potassium chloride ER (KLOR-CON M10) 10 mEq tablet 60 tablet 1 Sig: Take 1 tablet by mouth twice daily. cyanocobalamin (VITAMIN B-12) 1,000 mcg tab 90 tablet 3 Sig: Take 1 tablet by mouth once daily. Date of last office visit in primary care: 02/02/2023 Next appointment scheduled 06/15/2023 Please advise. Thank you. Maritza Redd LPN documented in this encounter [facility] 05-04-2023 Note HNO ID: [id number] Author: Maye Lincoln APRN.[employer] Service: ? Author Type: Nurse Practitioner Type: Progress Notes Filed: 05/04/2023 12:42 PM Note Text: SUBJECTIVE Saad Villafana is a 48 year old female here today for a check up on her medical problems. Chief Complaint Patient presents with: Weight Problem: weight check HPI Saad Villafana is a 48 year old female established patient of Lawrence Howard DO who presents today for a follow up weight check/follow up on Adipex. Therapy was started 02/02, starting weight was 224 and today's weight is 220 for a weight loss of 4 pounds. 5% weight loss goal was 11.2 pounds. She has been working on trying to improve diet, trying to limit carbs, increase protein, eat smaller portions. The adipex helped with decreasing portions and decreasing food cravings. 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 Does some swimming. At times biking and walking are hard due to the pain. Her medications were reviewed today and her list is now up to date. Medications Current Outpatient Medications Medication Sig escitalopram oxalate (LEXAPRO) 20 mg tablet Take 0.5 tablets by mouth once daily. cyclobenzaprine (FLEXERIL) 10 mg tablet Take 1 tablet by mouth three times daily as needed for muscle spasm. gabapentin (NEURONTIN) 300 mg capsule Take 1 capsule in the morning and 1 capsule at bedtime for 3 days. If tolerated, okay to increase to 1 in the morning, 1 at lunch and 1 at bedtime. lisinopril (ZESTRIL) 5 mg tablet Take 1 tablet by mouth once daily. rizatriptan (MAXALT) 10 mg tablet Take 1 tablet by mouth at first sign of headache/migraine. May take again in 2 hours if necessary. Cholecalciferol, Vitamin D3, 125 mcg (5,000 unit) cap Take 1 capsule by mouth once daily. potassium chloride ER (KLOR-CON M10) 10 mEq tablet Take 1 tablet by mouth twice daily. cyanocobalamin (VITAMIN B-12) 1,000 mcg tab Take 1 tablet by mouth once daily. loratadine (CLARITIN) 10 mg tablet Take 1 tablet by mouth once daily. acetaminophen 325 mg-caffeine 40 mg-butalbital 50 mg (FIORICET) per tablet Take 1 tablet by mouth once daily as needed for headache (migraine headache). traZODone (DESYREL) 50 mg tablet Take 2 tablets by mouth daily at bedtime. ondansetron orally disintegrating (ZOFRAN ODT) 4 mg disintegrating tablet Take 1 tablet by mouth every 8 hours as needed for nausea/vomiting. meclizine (ANTIVERT) 25 mg tab Take 1 tablet by mouth three times daily. METHOTREXATE ORAL Take by mouth. hydrocortisone (ANUSOL-HC) 2.5 % rectal cream by RECTAL route twice daily as needed (external hemorrhoids). External hemorrhoids hydroxychloroquine (PLAQUENIL) 200 mg tablet Take 200 mg by mouth twice daily. buPROPion XL (WELLBUTRIN XL) 300 mg 24 hr tablet Take 1 tablet by mouth once daily. topiramate (TOPAMAX) 200 mg tablet Take 1 tablet by mouth twice daily. Blood Pressure Monitor (BLOOD PRESSURE KIT) 1 Each once daily. No current facility-administered medications for this visit. ALLERGIES Allergen Reactions Amoxicillin Rash Adhesive Rash, Other: See Comments Rash like blisters Latex Other: See Comments Blistering rash Seasonal Allergies Other: See Comments Nasal congestion, itchy eyes ACTIVE PROBLEM LIST Obesity, Class I, Bmi 30-34.9 - 05/04/2023 Vitamin D Deficiency - 02/05/2023 Essential (Primary) Hypertension - 02/02/2023 Left Leg Paresthesias - 04/11/2022 Lumbosacral Radiculopathy At L5 - 04/11/2022 Acute Bilateral Low Back Pain With Left-Sided Sciatica - 04/11/2022 Lateral Epicondylitis of Right Elbow - 08/01/2021 Well Adult Exam - 08/01/2021 Elbow Pain, Right - 08/01/2021 Tenosynovitis, De Quervain - 12/08/2020 Pain of Left Thumb - 12/08/2020 External Hemorrhoid - 12/08/2020 Headache, Unspecified Headache Type - 12/24/2019 Pnd (Paroxysmal Nocturnal Dyspnea) - 12/24/2019 Hypersomnia - 12/24/2019 Snoring - 12/24/2019 Arthritis, Multiple Joint Involvement - 12/24/2019 Thyroid Nodule - 01/29/2019 Intractable Right Heel Pain - 01/13/2019 Fatigue - 01/13/2019 Dysthymia - 10/02/2018 Migraine Variant - 10/02/2018 Eustachian Tube Disorder, Left - 10/02/2018 Chronic Jaw Pain - 10/02/2018 Elevated Lfts - 07/30/2018 Benign Paroxysmal Positional Vertigo - 12/01/2016 Graves Disease - 02/04/2015 Hyperthyroidism - 02/04/2015 Multiple Thyroid Nodules - 02/04/2015 Low Tsh Level - 11/12/2013 Social History Tobacco Use Smoking status: Never Smokeless tobacco: Never Substance Use Topics Alcohol use: Not Currently Drug use: No Review of Systems Respiratory: Negative. Cardiovascular: Negative. OBJECTIVE BP 100/76 Pulse 116 Wt 220 lb (99.8kg) SpO2 98% LMP 03/06/2022 Physical Exam Vitals and nursing note reviewed. Constitutional: General: She is awake. She is not in acute distress. Appearance: Normal appearance. She is well-developed and well-groomed. She is obese. (more content not included)... [facility] 05-04-2023 Instructions Maye Lincoln APRN.[employer] - 05/04/2023 11:23 AM EDT Increase Wellbutrin to 300 mg daily. Increase Topamax to twice daily. If doing well can decrease gabapentin doses. If doing well with the higher Wellbutrin could look at stopping the Lexapro. documented in this encounter [facility] 05-04-2023 History of Present illness Narrative SUBJECTIVE Saad Villafana is a 48 year old female here today for a check up on her medical problems. Chief Complaint Patient presents with: Weight Problem: weight check HPI Saad Villafana is a 48 year old female established patient of Lawrence Howard DO who presents today for a follow up weight check/follow up on Adipex. Therapy was started 02/02, starting weight was 224 and today's weight is 220 for a weight loss of 4 pounds. 5% weight loss goal was 11.2 pounds. She has been working on trying to improve diet, trying to limit carbs, increase protein, eat smaller portions. The adipex helped with decreasing portions and decreasing food cravings. 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 Does some swimming. At times biking and walking are hard due to the pain. Her medications were reviewed today and her list is now up to date. Medications Current Outpatient Medications Medication Sig escitalopram oxalate (LEXAPRO) 20 mg tablet Take 0.5 tablets by mouth once daily. cyclobenzaprine (FLEXERIL) 10 mg tablet Take 1 tablet by mouth three times daily as needed for muscle spasm. gabapentin (NEURONTIN) 300 mg capsule Take 1 capsule in the morning and 1 capsule at bedtime for 3 days. If tolerated, okay to increase to 1 in the morning, 1 at lunch and 1 at bedtime. lisinopril (ZESTRIL) 5 mg tablet Take 1 tablet by mouth once daily. rizatriptan (MAXALT) 10 mg tablet Take 1 tablet by mouth at first sign of headache/migraine. May take again in 2 hours if necessary. Cholecalciferol, Vitamin D3, 125 mcg (5,000 unit) cap Take 1 capsule by mouth once daily. potassium chloride ER (KLOR-CON M10) 10 mEq tablet Take 1 tablet by mouth twice daily. cyanocobalamin (VITAMIN B-12) 1,000 mcg tab Take 1 tablet by mouth once daily. loratadine (CLARITIN) 10 mg tablet Take 1 tablet by mouth once daily. acetaminophen 325 mg-caffeine 40 mg-butalbital 50 mg (FIORICET) per tablet Take 1 tablet by mouth once daily as needed for headache (migraine headache). traZODone (DESYREL) 50 mg tablet Take 2 tablets by mouth daily at bedtime. ondansetron orally disintegrating (ZOFRAN ODT) 4 mg disintegrating tablet Take 1 tablet by mouth every 8 hours as needed for nausea/vomiting. meclizine (ANTIVERT) 25 mg tab Take 1 tablet by mouth three times daily. METHOTREXATE ORAL Take by mouth. hydrocortisone (ANUSOL-HC) 2.5 % rectal cream by RECTAL route twice daily as needed (external hemorrhoids). External hemorrhoids hydroxychloroquine (PLAQUENIL) 200 mg tablet Take 200 mg by mouth twice daily. buPROPion XL (WELLBUTRIN XL) 300 mg 24 hr tablet Take 1 tablet by mouth once daily. topiramate (TOPAMAX) 200 mg tablet Take 1 tablet by mouth twice daily. Blood Pressure Monitor (BLOOD PRESSURE KIT) 1 Each once daily. No current facility-administered medications for this visit. ALLERGIES Allergen Reactions Amoxicillin Rash Adhesive Rash, Other: See Comments Rash like blisters Latex Other: See Comments Blistering rash Seasonal Allergies Other: See Comments Nasal congestion, itchy eyes ACTIVE PROBLEM LIST Obesity, Class I, Bmi 30-34.9 - 05/04/2023 Vitamin D Deficiency - 02/05/2023 Essential (Primary) Hypertension - 02/02/2023 Left Leg Paresthesias - 04/11/2022 Lumbosacral Radiculopathy At L5 - 04/11/2022 Acute Bilateral Low Back Pain With Left-Sided Sciatica - 04/11/2022 Lateral Epicondylitis of Right Elbow - 08/01/2021 Well Adult Exam - 08/01/2021 Elbow Pain, Right - 08/01/2021 Tenosynovitis, De Quervain - 12/08/2020 Pain of Left Thumb - 12/08/2020 External Hemorrhoid - 12/08/2020 Headache, Unspecified Headache Type - 12/24/2019 Pnd (Paroxysmal Nocturnal Dyspnea) - 12/24/2019 Hypersomnia - 12/24/2019 Snoring - 12/24/2019 Arthritis, Multiple Joint Involvement - 12/24/2019 Thyroid Nodule - 01/29/2019 Intractable Right Heel Pain - 01/13/2019 Fatigue - 01/13/2019 Dysthymia - 10/02/2018 Migraine Variant - 10/02/2018 Eustachian Tube Disorder, Left - 10/02/2018 Chronic Jaw Pain - 10/02/2018 Elevated Lfts - 07/30/2018 Benign Paroxysmal Positional Vertigo - 12/01/2016 Graves Disease - 02/04/2015 Hyperthyroidism - 02/04/2015 Multiple Thyroid Nodules - 02/04/2015 Low Tsh Level - 11/12/2013 Social History Tobacco Use Smoking status: Never Smokeless tobacco: Never Substance Use Topics Alcohol use: Not Currently Drug use: No Review of Systems Respiratory: Negative. Cardiovascular: Negative. OBJECTIVE BP 100/76 Pulse 116 Wt 220 lb (99.8kg) SpO2 98% LMP 03/06/2022 Physical Exam Vitals and nursing note reviewed. Constitutional: General: She is awake. She is not in acute distress. Appearance: Normal appearance. She is well-developed and well-groomed. She is obese. She is not ill-appearing, toxic-appearing or diaphoretic. HENT: Head: Normocephalic. Right Ear: External ear normal. Left Ear: External ear normal. Nose: Nose normal. Eyes: General: Vision grossly intact. Conjunctiva/sclera: Conjunctivae normal. Pupils: Pupils are equal, round, and reactive to light. Neck: Vascular: No JVD. Trachea: Trachea normal. Pulmonary: Effort: Pulmonary effort is normal. No accessory muscle usage, prolonged expiration or respiratory distress. Musculoskeletal: Cervical back: Neck supple. Skin: General: Skin is warm and dry. Capillary Refill: Capillary refill takes less than 2 seconds. Neurological: General: No focal deficit present. Mental Status: She is alert and oriented to person, place, and time. Mental status is at baseline. Psychiatric: Attention and Perception: Attention and perception normal. Mood and Affect: Mood and affect normal. Speech: Speech normal. Behavior: Behavior normal. Behavior is cooperative. Thought Content: Thought content normal. Cognition and Memory: Cognition and memory normal. Judgment: Judgment normal. ASSESSMENT/PLAN: 1. Obesity, Class I, BMI 30-34.9 - ICD9: 278.00, ICD10: E66.9 (primary diagnosis) Weight is not decreasing despite weight loss efforts. Stop phentermine since 5% goal not met. We will increase the Wellbutrin and Topamax and see if helpful. Check insulin levels for any signs of insulin insensitivity. - BUPROPION XL 300 MG 24 HR TAB - TOPIRAMATE 200 MG TABLET - INSULIN ASSAY BLOOD 2. Lumbosacral radiculopathy at L5 - ICD9: 724.4, ICD10: M54.17 Increasing Topamax may help decrease gabapentin. 3. Dysthymia - ICD9: 300.4, ICD10: F34.1 Increase Wellbutrin, may be able to decrease Lexapro. Portions of this note have been entered by ancillary staff. I have reviewed and when necessary edited, so that they are an adequate record of my encounter with this patient Please note that parts of this document were created using voice recognition software and therefore may contain grammatical errors. Patient verbalizes understanding of instructions from today's visit and in agreement with treatment plan. Questions answered. Agrees to call the office if questions, concerns of issues with acute symptoms not improving or if they worsen. See diagnoses and orders for additional plan(s). Allergies and medications were reviewed, list was updated, and refills given if needed. Past medical, surgical, social, and family history reviewed and updated as appropriate. Encouraged proper diet & exercise as well as compliance with taking medications. Age-appropriate health preventative measures were discussed. Return in about 6 weeks (around 06/15/2023) for follow up weight check, med check. Maye Lincoln APRN-[employer] documented in this encounter [facility] 04-17-2023 Miscellaneous Notes Patient has been identified by name and date of : Yes Patient phones for refill(s): Requested Prescriptions Pending Prescriptions Disp Refills cyclobenzaprine (FLEXERIL) 10 mg tablet 30 tablet 0 Sig: Take 1 tablet by mouth three times daily as needed for muscle spasm. gabapentin (NEURONTIN) 300 mg capsule 90 capsule 0 Sig: Take 1 capsule in the morning and 1 capsule at bedtime for 3 days. If tolerated, okay to increase to 1 in the morning, 1 at lunch and 1 at bedtime. Date of last office visit in primary care: 02/02/2023 Please advise. Thank you. Maritza Redd LPN documented in this encounter [facility] 04-17-2023 Miscellaneous Notes Patient has been identified by name and date of : Yes Patient phones for refill(s): Requested Prescriptions Pending Prescriptions Disp Refills topiramate (TOPAMAX) 200 mg tablet 90 tablet 1 Sig: Take 1 tablet by mouth once daily. Date of last office visit in primary care: 02/02/2023 Please advise. Thank you. Maritza Redd LPN documented in this encounter [facility] 04-13-2023 Note HNO ID: [id number] Author: Taylor Roberts PA-C Service: ? Author Type: Physician Supervisor Files Type: Progress Notes Filed: 04/13/2023 10:53 AM Note Text: NEW VIRTUAL VISIT I have communicated my name and active licensure. The patient's identity and physical location were verified at the time of this visit. 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 I had a virtual visit with Ms. Villafana today for elevated LFTs. PMHx positive for fibromyalgia, HISTORY: Admits to Prilosec usage more PRN for the past few mos. Takes NSAIDs for chronic pains, tries not to take on a regular basis. Denies GI complaints of abd pain, N/V, change in bowel habits, EtOH, family hx of liver disease, blood transfusion, service. 03/2023 CBC WNL, CMP elevated alk phos 192. Colon 02/2023 one 2-3 mm hyperplastic polyp, hemorrhoids VCTE 02/2023 S3, likely chance of F0-F2 RUQ US 01/2023 IMPRESSION: Heterogeneous echotexture of the liver with increased echogenicity, likely secondary to diffuse liver parenchymal disease or hepatic steatosis. Subcentimeter echogenic focus in the right kidney, presumably representing kidney stone. PAST MEDICAL HISTORY Diagnosis Date Anxiety Arthritis Depression Hypertension Low vitamin D level 07/30/2018 Migraines Thyroid disease PAST SURGICAL HISTORY Procedure Laterality Date DELIVERY ONLY 10/22/2007 , low transverse COLONOSCOPY SCREENING 03/02/2023 CONIZATION CERVIX W/WO DANDC RPR ELTRD EXC 10/22/1994 LEEP-Cervix CYST ASPIRATION Left 12/18/2022 KNEE ARTHROSCOPY 10/22/1984 Left SEPTOPLASTY/SUBMUCOUS RESECJ W/WO CARTILAGE GRF 10/22/2011 TONSILLECTOMY HX FAMILY HISTORY Problem Relation Age of Onset other (HTN) Father Emphysema Paternal Grandfather Social History Tobacco Use Smoking status: Never Smokeless tobacco: Never Substance Use Topics Alcohol use: Not Currently Drug use: No Current Outpatient Medications Medication Sig Dispense Refill lisinopril (ZESTRIL) 5 mg tablet Take 1 tablet by mouth once daily. 30 tablet 1 rizatriptan (MAXALT) 10 mg tablet Take 1 tablet by mouth at first sign of headache/migraine. May take again in 2 hours if necessary. 12 tablet 2 Phentermine HCl (ADIPEX-P) 37.5 mg tablet Take 1 tablet by mouth once daily for 30 days. 30 tablet 0 buPROPion XL (WELLBUTRIN XL) 150 mg 24 hr tablet Take 1 tablet by mouth once daily. 90 tablet 0 gabapentin (NEURONTIN) 300 mg capsule Take 1 capsule in the morning and 1 capsule at bedtime for 3 days. If tolerated, okay to increase to 1 in the morning, 1 at lunch and 1 at bedtime. 90 capsule 0 Cholecalciferol, Vitamin D3, 125 mcg (5,000 unit) cap Take 1 capsule by mouth once daily. 90 capsule 3 potassium chloride ER (KLOR-CON M10) 10 mEq tablet Take 1 tablet by mouth twice daily. 60 tablet 1 cyanocobalamin (VITAMIN B-12) 1,000 mcg tab Take 1 tablet by mouth once daily. 90 tablet 3 Blood Pressure Monitor (BLOOD PRESSURE KIT) 1 Each once daily. 1 Kit 0 loratadine (CLARITIN) 10 mg tablet Take 1 tablet by mouth once daily. 30 tablet 11 acetaminophen 325 mg-caffeine 40 mg-butalbital 50 mg (FIORICET) per tablet Take 1 tablet by mouth once daily as needed for headache (migraine headache). 30 tablet 1 cyclobenzaprine (FLEXERIL) 10 mg tablet Take 1 tablet by mouth three times daily as needed for muscle spasm. 30 tablet 0 traZODone (DESYREL) 50 mg tablet Take 2 tablets by mouth daily at bedtime. 180 tablet 3 topiramate (TOPAMAX) 200 mg tablet Take 1 tablet by mouth once daily. 90 tablet 1 ondansetron orally disintegrating (ZOFRAN ODT) 4 mg disintegrating tablet Take 1 tablet by mouth every 8 hours as needed for nausea/vomiting. 20 tablet 1 meclizine (ANTIVERT) 25 mg tab Take 1 tablet by mouth three times daily. 30 tablet 1 escitalopram oxalate (LEXAPRO) 20 mg tablet Take 1 tablet by mouth once daily. 90 tablet 3 METHOTREXATE ORAL Take by mouth. hydrocortisone (ANUSOL-HC) 2.5 % rectal cream by RECTAL route twice daily as needed (external hemorrhoids). External hemorrhoids 28 g 1 hydroxychloroquine (PLAQUENIL) 200 mg tablet Take 200 mg by mouth twice daily. No current facility-administered medications for this visit. ALLERGIES Allergen Reactions Adhesive Rash, Other: See Comments Rash like blisters Amoxicillin Rash Latex Other: See Comments Blistering rash Seasonal Allergies Other: See Comments Nasal congestion, itchy eyes REVIEW OF SYSTEMS: PAIN ASSESSMENT: Negative for pain, history of chronic pain, or current treatment for a chronic pain condition. GENERAL: No weight loss, malaise or fevers RESPIRATORY: Negative for cough, hemoptysis, wheezing, COPD, dyspnea or shortness of breath CARDIOVASCULAR: Negative for chest pain, leg swelling, hypert (more content not included)... [facility] 04-13-2023 History of Present illness Narrative NEW VIRTUAL VISIT I have communicated my name and active licensure. The patient's identity and physical location were verified at the time of this visit. 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 I had a virtual visit with Ms. Villafana today for elevated LFTs. PMHx positive for fibromyalgia, HISTORY: Admits to Prilosec usage more PRN for the past few mos. Takes NSAIDs for chronic pains, tries not to take on a regular basis. Denies GI complaints of abd pain, N/V, change in bowel habits, EtOH, family hx of liver disease, blood transfusion, service. 03/2023 CBC WNL, CMP elevated alk phos 192. Colon 02/2023 one 2-3 mm hyperplastic polyp, hemorrhoids VCTE 02/2023 S3, likely chance of F0-F2 RUQ US 01/2023 IMPRESSION: Heterogeneous echotexture of the liver with increased echogenicity, likely secondary to diffuse liver parenchymal disease or hepatic steatosis. Subcentimeter echogenic focus in the right kidney, presumably representing kidney stone. PAST MEDICAL HISTORY Diagnosis Date Anxiety Arthritis Depression Hypertension Low vitamin D level 07/30/2018 Migraines Thyroid disease PAST SURGICAL HISTORY Procedure Laterality Date DELIVERY ONLY 10/22/2007 , low transverse COLONOSCOPY SCREENING 03/02/2023 CONIZATION CERVIX W/WO D&C RPR ELTRD EXC 10/22/1994 LEEP-Cervix CYST ASPIRATION Left 12/18/2022 KNEE ARTHROSCOPY 10/22/1984 Left SEPTOPLASTY/SUBMUCOUS RESECJ W/WO CARTILAGE GRF 10/22/2011 TONSILLECTOMY HX FAMILY HISTORY Problem Relation Age of Onset other (HTN) Father Emphysema Paternal Grandfather Social History Tobacco Use Smoking status: Never Smokeless tobacco: Never Substance Use Topics Alcohol use: Not Currently Drug use: No Current Outpatient Medications Medication Sig Dispense Refill lisinopril (ZESTRIL) 5 mg tablet Take 1 tablet by mouth once daily. 30 tablet 1 rizatriptan (MAXALT) 10 mg tablet Take 1 tablet by mouth at first sign of headache/migraine. May take again in 2 hours if necessary. 12 tablet 2 Phentermine HCl (ADIPEX-P) 37.5 mg tablet Take 1 tablet by mouth once daily for 30 days. 30 tablet 0 buPROPion XL (WELLBUTRIN XL) 150 mg 24 hr tablet Take 1 tablet by mouth once daily. 90 tablet 0 gabapentin (NEURONTIN) 300 mg capsule Take 1 capsule in the morning and 1 capsule at bedtime for 3 days. If tolerated, okay to increase to 1 in the morning, 1 at lunch and 1 at bedtime. 90 capsule 0 Cholecalciferol, Vitamin D3, 125 mcg (5,000 unit) cap Take 1 capsule by mouth once daily. 90 capsule 3 potassium chloride ER (KLOR-CON M10) 10 mEq tablet Take 1 tablet by mouth twice daily. 60 tablet 1 cyanocobalamin (VITAMIN B-12) 1,000 mcg tab Take 1 tablet by mouth once daily. 90 tablet 3 Blood Pressure Monitor (BLOOD PRESSURE KIT) 1 Each once daily. 1 Kit 0 loratadine (CLARITIN) 10 mg tablet Take 1 tablet by mouth once daily. 30 tablet 11 acetaminophen 325 mg-caffeine 40 mg-butalbital 50 mg (FIORICET) per tablet Take 1 tablet by mouth once daily as needed for headache (migraine headache). 30 tablet 1 cyclobenzaprine (FLEXERIL) 10 mg tablet Take 1 tablet by mouth three times daily as needed for muscle spasm. 30 tablet 0 traZODone (DESYREL) 50 mg tablet Take 2 tablets by mouth daily at bedtime. 180 tablet 3 topiramate (TOPAMAX) 200 mg tablet Take 1 tablet by mouth once daily. 90 tablet 1 ondansetron orally disintegrating (ZOFRAN ODT) 4 mg disintegrating tablet Take 1 tablet by mouth every 8 hours as needed for nausea/vomiting. 20 tablet 1 meclizine (ANTIVERT) 25 mg tab Take 1 tablet by mouth three times daily. 30 tablet 1 escitalopram oxalate (LEXAPRO) 20 mg tablet Take 1 tablet by mouth once daily. 90 tablet 3 METHOTREXATE ORAL Take by mouth. hydrocortisone (ANUSOL-HC) 2.5 % rectal cream by RECTAL route twice daily as needed (external hemorrhoids). External hemorrhoids 28 g 1 hydroxychloroquine (PLAQUENIL) 200 mg tablet Take 200 mg by mouth twice daily. No current facility-administered medications for this visit. ALLERGIES Allergen Reactions Adhesive Rash, Other: See Comments Rash like blisters Amoxicillin Rash Latex Other: See Comments Blistering rash Seasonal Allergies Other: See Comments Nasal congestion, itchy eyes REVIEW OF SYSTEMS: PAIN ASSESSMENT: Negative for pain, history of chronic pain, or current treatment for a chronic pain condition. GENERAL: No weight loss, malaise or fevers RESPIRATORY: Negative for cough, hemoptysis, wheezing, COPD, dyspnea or shortness of breath CARDIOVASCULAR: Negative for chest pain, leg swelling, hypertension, CHF or palpitations GI: No nausea, vomiting, or diarrhea : No history of dysuria, frequency or incontinence MEDICAL DETAILIST: Negative for abnormal vaginal bleeding, abnormal vaginal discharge MUSCULOSKELETAL: Negative for joint pain or swelling, back pain or muscle pain SKIN: Negative for lesions, rash, and itching ENDOCRINE: Negative for cold or heat intolerance, polyuria, polydipsia and goiter NEURO: No history of headaches, syncope, paralysis, seizures or tremors PHYSICAL FINDINGS OF NOTE: General - Normal, healthy, cooperative, in no acute distress Able to interact verbally by video conference Psych - ORIENTATION: normal to time place, person and situation Mood/Affect: AFFECT AND MOOD: Normal Head/Neuro - Normal size and shape Facial appearance normal Pulmonary - respiratory effort normal Cardiovascular - patient describes extremities normal, warm, no cyanosis,no clubbing, and no edema Abdominal - Not performed Skin - abnormal lesions not visualized Motor - patient seen sitting with Normal appearing strength and coordination Anorectal exam - Not Performed Assessment/Plan (R74.8) Alkaline phosphatase elevation (primary encounter diagnosis) (K76.0) Fatty liver 1. Alkaline phosphatase elevation - ALK PHOS ISOENZYM BL; Future - MITOCHONDRIAL M2 IGG SERUM; Future - CELIAC SCREEN WITH REFLEX; Future - FERRITIN BLD; Future - Possibly 2/2 fatty liver. Will check isoenzymes, ama, celiac, ferritin to r/o other potential sources for enzyme elevations - Hep testing in 2021 negative, reports h/o vaccination for hep A/B in the past as these are offered through her work - Discussed risk of cirrhosis for fatty liver, encourage weight loss, aerobic exercise, Mediterranean diet - Advised to try to avoid NSAID usage as much as possible 2. Fatty liver I spent a total of 15 minutes on the date of the service which included preparing to see the patient, [id number] patient care, completing clinical documentation, obtaining and/or reviewing separately obtained history, performing a medically appropriate examination, counseling and educating the patient/family/caregiver, ordering medications, tests, or procedures, communicating with other HCPs (not separately reported), independently interpreting results (not separately reported), communicating results to the patient/family/caregiver, and care coordination (not separately reported). Taylor Roberts PA-C April 13, 2023 10:44 AM documented in this encounter [facility] 04-09-2023 Miscellaneous Notes Rafael--02/02/23 Nov--05/04/23 Last refill--03/07/23 30 with 1 refill Last labs--02/05/23 documented in this encounter [facility] 04-09-2023 Miscellaneous Notes Called pt gave information provided. Pt voices understanding. She will return to urgent care to have them re access ear. Saad, I would recommend a follow up to recheck the ear in office. In the meantime she can try Flonase-lean forward and aim to the sides of each nostril. Rinse and gargle after use. Patient has a history of high blood pressure so I would avoid any decongestants. Estela Negron PA-C 04/09/2023 Message copied from my chart Saad Villafana sent to [facility] My Chart Rx Pool I was seen in Urgent Care about a week ago for fluid on my right ear. I had the issue for about 4 days before going in. I was prescribed an antibiotic. However, my ear continues to feel full and when I move it feels/sounds wet, not quite as bad as before. Is there something else I should be doing? I will say that the antibiotic that I was given made me feel nauseous for most of the day and slightly dizzy. I think I have taken it before without those symptoms but I really don't recall. Thanks documented in this encounter [facility] 04-04-2023 Note Patient Outreach (IN [facility]) SAAD VILLAFANA ([id number]) 1975 F Date Time Provider Department 04/04/23 LAWRENCE HOWARD During your visit today, we recorded the following information about you: Allergies As of Date: 04/04/2023 Noted Allergy Reaction ADHESIVE 07/30/2018 2 - Rash 14 - Other: See Comments Comments: Rash like blisters AMOXICILLIN 11/11/2013 2 - Rash LATEX 07/31/2018 14 - Other: See Comments Comments: Blistering rash SEASONAL ALLERGIES 03/20/2015 14 - Other: See Comments Comments: Nasal congestion, itchy eyes Date Reviewed: 03/29/2023 Reviewed by: Greer Garvin LPN - Fully Assessed Visit Diagnosis:Encounter for screening mammogram for breast cancer [Z12.31] Order(s):[facility] SCREENING [1801023] Order #: [id number] FUTURE Prescriptions as of 04/09/2023 - rizatriptan (MAXALT) 10 mg tablet Take 1 tablet by mouth at first sign of headache/migraine. May take again in 2 hours if necessary. - Phentermine HCl (ADIPEX-P) 37.5 mg tablet Take 1 tablet by mouth once daily for 30 days. - lisinopril (ZESTRIL) 5 mg tablet Take 1 tablet by mouth once daily. - buPROPion XL (WELLBUTRIN XL) 150 mg 24 hr tablet Take 1 tablet by mouth once daily. - gabapentin (NEURONTIN) 300 mg capsule Take 1 capsule in the morning and 1 capsule at bedtime for 3 days. If tolerated, okay to increase to 1 in the morning, 1 at lunch and 1 at bedtime. - Cholecalciferol, Vitamin D3, 125 mcg (5,000 unit) cap Take 1 capsule by mouth once daily. - potassium chloride ER (KLOR-CON M10) 10 mEq tablet Take 1 tablet by mouth twice daily. - cyanocobalamin (VITAMIN B-12) 1,000 mcg tab Take 1 tablet by mouth once daily. - Blood Pressure Monitor (BLOOD PRESSURE KIT) 1 Each once daily. - loratadine (CLARITIN) 10 mg tablet Take 1 tablet by mouth once daily. - acetaminophen 325 mg-caffeine 40 mg-butalbital 50 mg (FIORICET) per tablet Take 1 tablet by mouth once daily as needed for headache (migraine headache). - cyclobenzaprine (FLEXERIL) 10 mg tablet Take 1 tablet by mouth three times daily as needed for muscle spasm. - traZODone (DESYREL) 50 mg tablet Take 2 tablets by mouth daily at bedtime. - topiramate (TOPAMAX) 200 mg tablet Take 1 tablet by mouth once daily. - ondansetron orally disintegrating (ZOFRAN ODT) 4 mg disintegrating tablet Take 1 tablet by mouth every 8 hours as needed for nausea/vomiting. - meclizine (ANTIVERT) 25 mg tab Take 1 tablet by mouth three times daily. - escitalopram oxalate (LEXAPRO) 20 mg tablet Take 1 tablet by mouth once daily. - METHOTREXATE ORAL Take by mouth. - hydrocortisone (ANUSOL-HC) 2.5 % rectal cream by RECTAL route twice daily as needed (external hemorrhoids). External hemorrhoids - hydroxychloroquine (PLAQUENIL) 200 mg tablet Take 200 mg by mouth twice daily. Meds Comments as of 11/12/2020: Vitamin D 5000 international unit(s) daily-as of 11/11/2020 Problem List As Of Date 04/04/2023 Noted Resolved Low TSH level [R79.89] 11/12/2013 Graves disease [E05.00] 02/04/2015 Hyperthyroidism [E05.90] 02/04/2015 Multiple thyroid nodules [E04.2] 02/04/2015 Benign paroxysmal positional vertigo [H81.10] 12/01/2016 Elevated LFTs [R79.89] 07/30/2018 Dysthymia [F34.1] 10/02/2018 Migraine variant [G43.809] 10/02/2018 Eustachian tube disorder, left [H69.92] 10/02/2018 Chronic jaw pain [R68.84, G89.29] 10/02/2018 Intractable right heel pain [M79.671] 01/13/2019 Fatigue [R53.83] 01/13/2019 Thyroid nodule [E04.1] 01/29/2019 Headache, unspecified headache type [R51.9] 12/24/2019 PND (paroxysmal nocturnal dyspnea) [R06.00] 12/24/2019 Hypersomnia [G47.10] 12/24/2019 Snoring [R06.83] 12/24/2019 Arthritis, multiple joint involvement [M12.9] 12/24/2019 Tenosynovitis, de Quervain [M65.4] 12/08/2020 Pain of left thumb [M79.645] 12/08/2020 External hemorrhoid [K64.4] 12/08/2020 Lateral epicondylitis of right elbow [M77.11] 08/01/2021 Well adult exam [Z00.00] 08/01/2021 Elbow pain, right [M25.521] 08/01/2021 Left leg paresthesias [R20.2] 04/11/2022 Lumbosacral radiculopathy at L5 [M54.17] 04/11/2022 Acute bilateral low back pain with left-sided s*04/11/2022 Essential (primary) hypertension [I10] 02/02/2023 Vitamin D deficiency [E55.9] 02/05/2023 Encounter Status:Closed by EPIC, PRODUSER on 04/09/23 [facility] 03-29-2023 Note HNO ID: [id number] Author: Cecilia Watts APRN.[employer] Service: ? Author Type: Nurse Practitioner Type: Progress Notes Filed: 03/29/2023 7:12 PM Note Text: Subjective Ear Problem Associated symptoms include coughing and headaches. Pertinent negatives include no diarrhea, ear discharge, sore throat or vomiting. Saad Villafana is a 48 year old female who presents with right ear congestion, sinus pressure and congestion, headache, cough. She denies any known sick contacts. She does not have a fever today. She has taken loratadine and nasonex at home. Review of Systems Constitutional: Negative for chills and fever. HENT: Positive for congestion and ear pain. Negative for ear discharge and sore throat. Respiratory: Positive for cough and sputum production. Negative for shortness of breath. Cardiovascular: Negative. Gastrointestinal: Negative for diarrhea, nausea and vomiting. Musculoskeletal: Negative for myalgias. Neurological: Positive for headaches. BP 118/80 Pulse 99 Temp 36.8 ?C (98.3 ?F) (Tympanic) Resp 16 Wt 100.9 kg (222 lb 6.4 oz) LMP 08/13/2022 (Approximate) SpO2 96% BMI 35.11 kg/m? PAST MEDICAL HISTORY Diagnosis Date Anxiety Arthritis Depression Hypertension Low vitamin D level 07/30/2018 Migraines Thyroid disease PAST SURGICAL HISTORY Procedure Laterality Date DELIVERY ONLY 10/22/2007 , low transverse CONIZATION CERVIX W/WO DANDC RPR ELTRD EXC 10/22/1994 LEEP-Cervix CYST ASPIRATION Left 12/18/2022 KNEE ARTHROSCOPY 10/22/1984 Left SEPTOPLASTY/SUBMUCOUS RESECJ W/WO CARTILAGE GRF 10/22/2011 TONSILLECTOMY HX ALLERGIES Adhesive, Amoxicillin, Latex, and Seasonal Allergies MEDICATIONS lisinopril (ZESTRIL) 5 mg tablet Take 1 tablet by mouth once daily. Phentermine HCl (ADIPEX-P) 37.5 mg tablet Take 1 tablet by mouth once daily for 30 days. buPROPion XL (WELLBUTRIN XL) 150 mg 24 hr tablet Take 1 tablet by mouth once daily. gabapentin (NEURONTIN) 300 mg capsule Take 1 capsule in the morning and 1 capsule at bedtime for 3 days. If tolerated, okay to increase to 1 in the morning, 1 at lunch and 1 at bedtime. Cholecalciferol, Vitamin D3, 125 mcg (5,000 unit) cap Take 1 capsule by mouth once daily. potassium chloride ER (KLOR-CON M10) 10 mEq tablet Take 1 tablet by mouth twice daily. cyanocobalamin (VITAMIN B-12) 1,000 mcg tab Take 1 tablet by mouth once daily. Blood Pressure Monitor (BLOOD PRESSURE KIT) 1 Each once daily. loratadine (CLARITIN) 10 mg tablet Take 1 tablet by mouth once daily. acetaminophen 325 mg-caffeine 40 mg-butalbital 50 mg (FIORICET) per tablet Take 1 tablet by mouth once daily as needed for headache (migraine headache). cyclobenzaprine (FLEXERIL) 10 mg tablet Take 1 tablet by mouth three times daily as needed for muscle spasm. traZODone (DESYREL) 50 mg tablet Take 2 tablets by mouth daily at bedtime. topiramate (TOPAMAX) 200 mg tablet Take 1 tablet by mouth once daily. rizatriptan (MAXALT) 10 mg tablet Take 1 tablet by mouth at first sign of headache/migraine. May take again in 2 hours if necessary. ondansetron orally disintegrating (ZOFRAN ODT) 4 mg disintegrating tablet Take 1 tablet by mouth every 8 hours as needed for nausea/vomiting. meclizine (ANTIVERT) 25 mg tab Take 1 tablet by mouth three times daily. escitalopram oxalate (LEXAPRO) 20 mg tablet Take 1 tablet by mouth once daily. METHOTREXATE ORAL Take by mouth. hydrocortisone (ANUSOL-HC) 2.5 % rectal cream by RECTAL route twice daily as needed (external hemorrhoids). External hemorrhoids hydroxychloroquine (PLAQUENIL) 200 mg tablet Take 200 mg by mouth twice daily. doxycycline monohydrate 100 mg tablet Take 1 tablet by mouth twice daily for 7 days. FAMILY HISTORY Problem Relation Age of Onset other (HTN) Father Emphysema Paternal Grandfather Social History Tobacco Use Smoking status: Never Smokeless tobacco: Never Substance Use Topics Alcohol use: Not Currently Drug use: No Objective Physical Exam Vitals and nursing note reviewed. Constitutional: General: She is not in acute distress. Appearance: Normal appearance. She is not ill-appearing. HENT: Right Ear: Ear canal and external ear normal. A middle ear effusion is present. Tympanic membrane is injected. Left Ear: Tympanic membrane, ear canal and external ear normal. Nose: Congestion present. Mouth/Throat: Pharynx: Uvula midline. Cardiovascular: Rate and Rhythm: Normal rate and regular rhythm. Heart sounds: Normal heart sounds. Pulmonary: Effort: Pulmonary effort is normal. No respiratory distress. Breath sounds: Normal breath sounds. No wheezing or rales. Musculoskeletal: Cervical back: Neck supple. Lymphadenopathy: Cervical: No cervical adenopathy. Skin: General: Skin is warm and dry. Findings: No erythema or rash. Neurological: Mental Status: She is alert. ASSESSMENT/PLAN: 1. Acute effusion of ri (more content not included)... [facility] 03-05-2023 Miscellaneous Notes PT is scheduled. Shruthi GILES 1st attempt to call patient, left voicemail. TISHA Rizvi February 28, 2023 1:40 PM TC to patient who verbalized understanding of providers message and is agreeable to seeing a bead trimmer. Please call patient and assist in scheduling. Thank you. JESS Watson Please let Saad know that her liver testing does show stiffening of her liver and I would like her to schedule with a bead trimmer (liver specialist) to get established and for any further assessment or treatment concerns. Please assist her to schedule this appointment. Vicente Lakhani APRN.IGNACIO documented in this encounter [facility] 03-05-2023 Miscellaneous Notes Images from the original note were not included. Dianna Leo MD [facility] Surg Scheduling Pool 39 minutes ago (1:06 PM) Please cancel this patient's appt with Ana on 03/13, thank you Told patient pathology results. Given findings of hyperplastic polyp, no screening colonoscopy required for another 10 years. Patient acknowledges above HM updated and recall letter generated. documented in this encounter [facility] 03-02-2023 Nurse Note Patient received in phase II via cart left lateral position, eyes closed, open to verbal stimuli, oriented to self and event, skin warm and dry, abdomen soft non distended, reports mild cramps in abdomen, resting comfortably on left side. documented in this encounter [facility] 03-02-2023 History and physical note HISTORY AND PHYSICAL Saad Villafana 1975 REFERRING PHYSICIAN: Vicente Lakhani APRN* CHIEF COMPLAINT: No chief complaint on file. HPI: The patient is a 48 year old female presents for screening for colon cancer via colonoscopy The patient denies blood in stools, denies abdominal pain, and denies changes in bowel habits. The patient notes no colon cancer in immediate family. The patient has not had previous colonoscopy. PAST MEDICAL HISTORY Diagnosis Date Anxiety Depression Low vitamin D level 07/30/2018 Migraines PAST SURGICAL HISTORY Procedure Laterality Date DELIVERY ONLY 10/22/2007 , low transverse CONIZATION CERVIX W/WO D&C RPR ELTRD EXC 10/22/1994 LEEP-Cervix CYST ASPIRATION Left 12/18/2022 KNEE ARTHROSCOPY 10/22/1984 Left SEPTOPLASTY/SUBMUCOUS RESECJ W/WO CARTILAGE GRF 10/22/2011 Current Outpatient Medications Medication Sig buPROPion XL (WELLBUTRIN XL) 150 mg 24 hr tablet Take 1 tablet by mouth once daily. gabapentin (NEURONTIN) 300 mg capsule Take 1 capsule in the morning and 1 capsule at bedtime for 3 days. If tolerated, okay to increase to 1 in the morning, 1 at lunch and 1 at bedtime. Cholecalciferol, Vitamin D3, 125 mcg (5,000 unit) cap Take 1 capsule by mouth once daily. potassium chloride ER (KLOR-CON M10) 10 mEq tablet Take 1 tablet by mouth twice daily. cyanocobalamin (VITAMIN B-12) 1,000 mcg tab Take 1 tablet by mouth once daily. lisinopril (ZESTRIL) 5 mg tablet Take 1 tablet by mouth once daily. Blood Pressure Monitor (BLOOD PRESSURE KIT) 1 Each once daily. Phentermine HCl (ADIPEX-P) 37.5 mg tablet Take 1 tablet by mouth once daily for 30 days. loratadine (CLARITIN) 10 mg tablet Take 1 tablet by mouth once daily. acetaminophen 325 mg-caffeine 40 mg-butalbital 50 mg (FIORICET) per tablet Take 1 tablet by mouth once daily as needed for headache (migraine headache). cyclobenzaprine (FLEXERIL) 10 mg tablet Take 1 tablet by mouth three times daily as needed for muscle spasm. traZODone (DESYREL) 50 mg tablet Take 2 tablets by mouth daily at bedtime. topiramate (TOPAMAX) 200 mg tablet Take 1 tablet by mouth once daily. rizatriptan (MAXALT) 10 mg tablet Take 1 tablet by mouth at first sign of headache/migraine. May take again in 2 hours if necessary. ondansetron orally disintegrating (ZOFRAN ODT) 4 mg disintegrating tablet Take 1 tablet by mouth every 8 hours as needed for nausea/vomiting. meclizine (ANTIVERT) 25 mg tab Take 1 tablet by mouth three times daily. escitalopram oxalate (LEXAPRO) 20 mg tablet Take 1 tablet by mouth once daily. METHOTREXATE ORAL Take by mouth. hydrocortisone (ANUSOL-HC) 2.5 % rectal cream by RECTAL route twice daily as needed (external hemorrhoids). External hemorrhoids hydroxychloroquine (PLAQUENIL) 200 mg tablet Take 200 mg by mouth twice daily. ALLERGIES: Adhesive, Amoxicillin, Latex, and Seasonal Allergies PERSONAL HISTORY: Social History Tobacco Use Smoking status: Never Smokeless tobacco: Never Substance Use Topics Alcohol use: Yes Comment: Occasionally Drug use: No FAMILY HISTORY Problem Relation Age of Onset other (HTN) Father Emphysema Paternal Grandfather REVIEW OF SYSTEMS: General - denies fevers HEENT - denies trauma/infections Resp - denies coughing up blood, denies breathing difficulties Cardiac - denies chest pain GI - denies abdominal pain, denies blood in stools, denies vomiting up of blood - denies blood in urine Endocrine - denies diabetes Psych - denies hallucinations Physical examination: Vital signs in chart, reviewed and noted by me General - WD/WN WF in no apparent distress, alert and oriented Head - Normocephalic. EOM intact with sclera clear. Mouth with mucus membranes moist. Neck - supple with no jugular venous distention noted. Trachea is midline. Lungs - clear to auscultation. Normal breath sounds. No rales/rhonchi/wheezing noted. Heart - normal heart sounds. No rubs/clicks/murmurs noted. Regular rate. Abdomen - soft and benign. Extremities - no pitting edema noted. Skin - Normal skin integrity. Neurological - non focal Psych - calm and appropriate Impression: screening for colon cancer Discussion/Plan/Recommendations: I have discussed the above with the patient. I have offered colonoscopy, possible biopsies I have explained the procedure to the patient. I have counseled the patient as to the risks of the procedure, including but not limited to: infection, bleeding, injury to any intrabdominal organs such as liver/spleen, perforation of the GI tract, inability to complete the procedure, complications of anesthesia, etc. - the patient understands. The patient wishes to proceed. I have answered all questions to the patient s satisfaction and the patient has no further questions. Dianna Leo MD documented in this encounter [facility] 03-01-2023 Miscellaneous Notes Rafael--02/02/23 Nov--05/04/23 Last refill--gabapentin 01/12/23 90 with 0 refills Bupropion-- 11/22/22 90 with 0 refills Last labs-- documented in this encounter [facility] 02-23-2023 Note HNO ID: [id number] Author: Nedra Dahl APRN.IGNACIO Service: ? Author Type: Nurse Practitioner Type: Progress Notes Filed: 02/25/2023 9:07 PM Note Text: Patient fasting for 3 hours:Yes Any implanted devices:No Possibility of :No Fibroscan was performed on February 23, 2023, by Glenna Hernandez LPN and results are interpreted by Nedra Dahl CNP Diagnosis: Elevated LFT's Please refer to get images report for individual readings Number of readings: 10 IQR %: 15 E (kpa): 4.1 CAP: 321 Impression The reading was adequate. FS =4.1 kPA. The CAP score is 321 and corresponds to steatosis grade of S3. The fibrosis interpretation threshold for elevated LFT's diagnosis in Fibroscan is not well-established and the reading may serve as a reference point for follow up. This reading corresponds: A 94% chance of stage 0-2 fibrosis A 6% chance of stage 3-4 fibrosis (advanced fibrosis) A <1% chance of stage 4 fibrosis (cirrhosis). Nedra Dahl APRN.[employer] Others/All Fibroscan Fibrosis Risk <7 kPA = F0-F2 94%, F3+F4 6%, F4 <1% <10 kPA = F0-F2 88%, F3+F4 12%, F4 1.8% 10-15 kPA = F0-F2 47%, F3+F4 53%, F4 19% >15 kPA = F0-F2 17%, F3+F4 83%, F4 61% Grade CAP value up to 237 dB/M corresponds to S0 (< 10 % Fat) CAP value between (238 - 258 dB/M) corresponds to S1 (>/= 11 % Fat) CAP value between (259 - 289 dB/M) corresponds to S2 (>/= 33 % Fat) CAP value > 290dB/M corresponds to S3 (>/= 67 % Fat) stage 0 ( S0:< 10 % steatosis) stage 1 (>/= S1: 11%-33% steatosis) stage 2 (>/= S2: 34%-66% steatosis) stage 3 (>/= S3: > 66% steatosis) Reference Ahmet Y, Roscoe Q, Ahmet T, Sis J, Ahmet H, Efra T. Controlled attenuation parameter for assessment of hepatic steatosis grades: a diagnostic meta-analysis. Int J Clin Exp Med. 2015 Jul 15;8(10):35066-37. PMID: 19714380; PMCID: [id number]. Cortes M, Christel ROYAL, Aaronr-Tara M, Elba F, Delores J, Magaly O, Olga F, Kimberly M, Becky G, Eric A, Javan E, Beckie L, Alayna G, Primitivo A, [place] U, Blackwell S, Montserrat P, Pedroo V, de Vik V, Cristhian M, Chacorta ACUNA. Refining the Baveno elastography criteria for the definition of compensated advanced chronic liver disease. J Hepatol. 2020;74(5):9819-5052. doi: 10.1016/j.jhep.2020.11.050. Ep2019Sep 29. PMID: 54676967. [facility] 02-23-2023 History of Present illness Narrative Patient fasting for 3 hours:Yes Any implanted devices:No Possibility of :No Fibroscan was performed on February 23, 2023, by Glenna Hernandez LPN and results are interpreted by Nedra Dahl CNP Diagnosis: Elevated LFT's Please refer to get images report for individual readings Number of readings: 10 IQR %: 15 E (kpa): 4.1 CAP: 321 Impression The reading was adequate. FS =4.1 kPA. The CAP score is 321 and corresponds to steatosis grade of S3. The fibrosis interpretation threshold for elevated LFT's diagnosis in Fibroscan is not well-established and the reading may serve as a reference point for follow up. This reading corresponds: A 94% chance of stage 0-2 fibrosis A 6% chance of stage 3-4 fibrosis (advanced fibrosis) A <1% chance of stage 4 fibrosis (cirrhosis). Nedra Dahl APRN.[employer] Others/All Fibroscan Fibrosis Risk <7 kPA = F0-F2 94%, F3+F4 6%, F4 <1% <10 kPA = F0-F2 88%, F3+F4 12%, F4 1.8% 10-15 kPA = F0-F2 47%, F3+F4 53%, F4 19% >15 kPA = F0-F2 17%, F3+F4 83%, F4 61% Grade CAP value up to 237 dB/M corresponds to S0 (< 10 % Fat) CAP value between (238 - 258 dB/M) corresponds to S1 (>/= 11 % Fat) CAP value between (259 - 289 dB/M) corresponds to S2 (>/= 33 % Fat) CAP value > 290dB/M corresponds to S3 (>/= 67 % Fat) stage 0 ( S0:< 10 % steatosis) stage 1 (>/= S1: 11%-33% steatosis) stage 2 (>/= S2: 34%-66% steatosis) stage 3 (>/= S3: > 66% steatosis) Reference Ahmet Y, Roscoe Q, Leo T, Sis J, Leo H, Kraus T. Controlled attenuation parameter for assessment of hepatic steatosis grades: a diagnostic meta-analysis. Int J Clin Exp Med. 2015 Jul 15;8(10):51749-59. PMID: [id number]; PMCID: [id number]. Cortes Nunn, Christel PAIGE, Malika M, Elba F, Delores J, Magaly O, Olga F, Kimberly Nunn, Becky G, Eric Bragg, Javna E, Beckie L, Alayna G, Primitivo A, [place] U, Rosalva S, Montserrat P, Hoang V, Trent V, Cristhian M, Chacorta ACUNA. Refining the Baveno elastography criteria for the definition of compensated advanced chronic liver disease. J Hepatol. 2020;74(5):4053-3888. doi: 10.1016/j.jhep.2020.11.050. Epub 2019Sep 29. PMID: 38992820. documented in this encounter [facility] 02-12-2023 Miscellaneous Notes Pt called and is notified of providers results and instructions. Pt voices understanding. Pt put through to scheduling at to set up Fibro scan. Ana Dickerson RN Please let Saad know that I received her liver ultrasound result. It does show either fatty liver vs other liver disease. I'm ordering a fibroscan to help determin the extent. Please assist her to schedule this appointment. Vicente Lakhani APRN.[employer]NAC[employer] documented in this encounter [facility] 02-09-2023 Note HNO ID: [id number] Author: Maegan Beltrán RDMS Service: ? Author Type: Nipple Maker Type: Progress Notes Filed: 02/09/2023 11:39 AM Note Text: Radiology Service Progress Note PATIENT NAME: Saad Villafana DATE OF SERVICE: February 09, 2023 TIME: 11:38 AM PATIENT IDENTITY VERIFICATION COMPLETED USING TWO (2) IDENTIFIERS: Name and Date of confirmed by patient verbally. FALL SCREENING: Has the patient had 2 falls in the last year or 1 fall with injury or currently using an Ambulatory Assistive Device (Walker, Cane, Wheelchair, Crutches, etc.)? No PATIENT GENDER DATA: Female. status: : No status: NO. PATIENT RELEVANT IMPLANT DATA REVIEWED: Not Applicable RADIOLOGY DEPARTMENT: Ultrasound PERIPHERAL IV DATA: Not applicable SIGNED BY: Maegan Beltrán RDMS February 09, 2023 11:38 AM [facility] 02-09-2023 Note HNO ID: [id number] Author: Maegan Beltrán RDMS Service: ? Author Type: Nipple Maker Type: Progress Notes Filed: 02/09/2023 11:37 AM Note Text: Radiology Service Progress Note PATIENT NAME: Saad Villafana DATE OF SERVICE: February 09, 2023 TIME: 11:37 AM PATIENT IDENTITY VERIFICATION COMPLETED USING TWO (2) IDENTIFIERS: Name and Date of confirmed by patient verbally. FALL SCREENING: Has the patient had 2 falls in the last year or 1 fall with injury or currently using an Ambulatory Assistive Device (Walker, Cane, Wheelchair, Crutches, etc.)? No PATIENT GENDER DATA: Female. status: : No status: NO. PATIENT RELEVANT IMPLANT DATA REVIEWED: Not Applicable RADIOLOGY DEPARTMENT: Ultrasound PERIPHERAL IV DATA: Not applicable SIGNED BY: Maegan Beltrán RDMS February 09, 2023 11:37 AM [facility] 02-09-2023 History of Present illness Narrative Radiology Service Progress Note PATIENT NAME: Saad Villafana DATE OF SERVICE: February 09, 2023 TIME: 11:38 AM PATIENT IDENTITY VERIFICATION COMPLETED USING TWO (2) IDENTIFIERS: Name and Date of confirmed by patient verbally. FALL SCREENING: Has the patient had 2 falls in the last year or 1 fall with injury or currently using an Ambulatory Assistive Device (Walker, Cane, Wheelchair, Crutches, etc.)? No PATIENT GENDER DATA: Female. status: : No status: NO. PATIENT RELEVANT IMPLANT DATA REVIEWED: Not Applicable RADIOLOGY DEPARTMENT: Ultrasound PERIPHERAL IV DATA: Not applicable SIGNED BY: Maegan Beltrán RDMS February 09, 2023 11:38 AM documented in this encounter [facility] 02-09-2023 History of Present illness Narrative Radiology Service Progress Note PATIENT NAME: Saad Villafana DATE OF SERVICE: February 09, 2023 TIME: 11:37 AM PATIENT IDENTITY VERIFICATION COMPLETED USING TWO (2) IDENTIFIERS: Name and Date of confirmed by patient verbally. FALL SCREENING: Has the patient had 2 falls in the last year or 1 fall with injury or currently using an Ambulatory Assistive Device (Walker, Cane, Wheelchair, Crutches, etc.)? No PATIENT GENDER DATA: Female. status: : No status: NO. PATIENT RELEVANT IMPLANT DATA REVIEWED: Not Applicable RADIOLOGY DEPARTMENT: Ultrasound PERIPHERAL IV DATA: Not applicable SIGNED BY: Maegan Beltrán RDMS February 09, 2023 11:37 AM documented in this encounter [facility] 02-05-2023 Miscellaneous Notes Patient notified and verbalized understanding. Pt transferred to casket liner to schedule US. Shila Lema RN Please let Love know I received her lab results. Her vitamin D is low. I recommend she begin a daily Vitamin D3 5000 international unit(s) supplement, I sent this in for her. Her liver enzymes are continuing to increase. I'd like her to have an ultrasound performed of her liver, please assist her to schedule this appointment. Her potassium level is low, and compared with previous results, she is borderline low to low potassium. I'd like her to begin taking a twice daily potassium supplement with breakfast and supper. We then need to recheck her potassium level again in 2 weeks. Her vitamin B12 level is on the lower end of normal. I'm sending in a daily B12 supplement for her to begin taking. The following approved medication requests have been transmitted electronically. Requested Prescriptions Signed Prescriptions Disp Refills Cholecalciferol, Vitamin D3, 125 mcg (5,000 unit) cap 90 capsule 3 Sig: Take 1 capsule by mouth once daily. Authorizing Provider: VICENTE LAKHANI potassium chloride ER (KLOR-CON M10) 10 mEq tablet 60 tablet 1 Sig: Take 1 tablet by mouth twice daily. Authorizing Provider: VICENTE LAKHANI cyanocobalamin (VITAMIN B-12) 1,000 mcg tab 90 tablet 3 Sig: Take 1 tablet by mouth once daily. Authorizing Provider: VICENTE LAKHANI APRN.[employer] documented in this encounter [facility] 02-02-2023 Note HNO ID: [id number] Author: Vicente Lakhani APRN.[employer] Service: ? Author Type: Nurse Practitioner Type: Progress Notes Filed: 02/02/2023 10:43 AM Note Text: Chief Complaint Patient presents with: Physical HPI Saad Villafana is a 48 year old female who presents here today for Above Complaints. Today: Has an annoying tickling cough from a virus a few months ago. BP-has been elevated at a few visits recently. Weight-is a cough potato. Has Graves disease, fibro, arthritis. Through winter was in pain a lot, things are better with the warmer weather. Has cyst on [id number] it difficult to walk. Aspirated this cyst. Has a chronic fracture to her spine. Has had success in the past with Optifast diet through [place]. Past medical history, appointments, medications, allergies reviewed. Previous Medical History PAST MEDICAL HISTORY Diagnosis Date Anxiety Depression Low vitamin D level 07/30/2018 Migraines Previous Surgical History PAST SURGICAL HISTORY Procedure Laterality Date DELIVERY ONLY 10/22/2007 , low transverse CONIZATION CERVIX W/WO DANDC RPR ELTRD EXC 10/22/1994 LEEP-Cervix CYST ASPIRATION Left 12/18/2022 KNEE ARTHROSCOPY 10/22/1984 Left SEPTOPLASTY/SUBMUCOUS RESECJ W/WO CARTILAGE GRF 10/22/2011 Family History FAMILY HISTORY Problem Relation Age of Onset Emphysema Paternal Grandfather Patient Allergies ALLERGIES Allergen Reactions Adhesive Rash, Other: See Comments Rash like blisters Amoxicillin Rash Latex Other: See Comments Blistering rash Seasonal Allergies Other: See Comments Nasal congestion, itchy eyes Current Medications Current Outpatient Medications on File Prior to Visit Medication Sig benzonatate (TESSALON PERLES) 100 mg capsule Take 1 capsule by mouth three times daily as needed for cough for up to 7 days. loratadine (CLARITIN) 10 mg tablet Take 1 tablet by mouth once daily. acetaminophen 325 mg-caffeine 40 mg-butalbital 50 mg (FIORICET) per tablet Take 1 tablet by mouth once daily as needed for headache (migraine headache). cyclobenzaprine (FLEXERIL) 10 mg tablet Take 1 tablet by mouth three times daily as needed for muscle spasm. gabapentin (NEURONTIN) 300 mg capsule Take 1 capsule in the morning and 1 capsule at bedtime for 3 days. If tolerated, okay to increase to 1 in the morning, 1 at lunch and 1 at bedtime. buPROPion XL (WELLBUTRIN XL) 150 mg 24 hr tablet Take 1 tablet by mouth once daily. traZODone (DESYREL) 50 mg tablet Take 2 tablets by mouth daily at bedtime. topiramate (TOPAMAX) 200 mg tablet Take 1 tablet by mouth once daily. rizatriptan (MAXALT) 10 mg tablet Take 1 tablet by mouth at first sign of headache/migraine. May take again in 2 hours if necessary. ondansetron orally disintegrating (ZOFRAN ODT) 4 mg disintegrating tablet Take 1 tablet by mouth every 8 hours as needed for nausea/vomiting. meclizine (ANTIVERT) 25 mg tab Take 1 tablet by mouth three times daily. escitalopram oxalate (LEXAPRO) 20 mg tablet Take 1 tablet by mouth once daily. METHOTREXATE ORAL Take by mouth. hydrocortisone (ANUSOL-HC) 2.5 % rectal cream by RECTAL route twice daily as needed (external hemorrhoids). External hemorrhoids hydroxychloroquine (PLAQUENIL) 200 mg tablet Take 200 mg by mouth twice daily. GABAPENTIN, BULK, MISC (Patient not taking: Reported on 02/02/2023) No current facility-administered medications on file prior to visit. Social History Social History Tobacco Use Smoking status: Never Smokeless tobacco: Never Substance Use Topics Alcohol use: Yes Comment: Occasionally Drug use: No Review of Symptoms REVIEW OF SYSTEMS See HPI, otherwise negative EXAM: BP 144/88 Pulse 100 Resp 18 Ht 169.5 cm (5' 6.73 ) Wt 101.8 kg (224 lb 6.4 oz) LMP 10/17/2021 (Approximate) SpO2 97% BMI 35.43 kg/m? General Appearance: Well appearing, alert, in no acute distress, well-hydrated, well nourished. and Obese. Skin: Skin color, texture, turgor normal, no suspicious rashes or lesions. Head: Normocephalic, no masses, lesions, tenderness or abnormalities. Eyes: Anicteric sclera. Pupils are equally round and reactive to light. Extraocular movements are intact. . Ears: External ears normal, canals clear. Nose/Sinuses: Nares normal, septum midline, mucosa normal, no drainage or sinus tenderness. Oropharynx: Lips, mucosa, and tongue normal, teeth and gums normal, oropharynx normal. Neck: Supple, no adenopathy; thyroid symmetric, normal size, no bruits. +mild acanthosis nigricans Lungs: Lungs clear to auscultation. No wheezing, rhonchi, rales.. Heart: RRR without murmur, gallop, or rubs. No ectopy. Abdomen: Normal abdominal exam, Abdomen soft, non-tender. Bowel sounds normal. No masses, organomegaly. Extremities: No deformities, edema, skin discoloration, clubbing or cyanosis. Good capillary refill. . Musculoskeletal: No joint swelling, deformity, o (more content not included)... [facility] 02-02-2023 Instructions Vicente Lakhani APRN.[facility] - 02/02/2023 10:25 AM EDT Images from the original note were not included. Have your labs drawn. Take your lisinopril once daily in the mornings. Record your BP and heart rate 1-2 times daily and record. Send me these results in 2 weeks over zSoup. Start the Adipex daily, take about a half hour before you eat in the morning. Work on cutting back carbs and increasing lean protein. You'll need to request a refill every month. Then follow up in 3 months. Bowel Preparation Instructions for: Miralax-Gatorade Preparations IF YOU DO NOT FOLLOW THESE DIRECTIONS, YOUR COLONOSCOPY WILL BE CANCELLED. [place] Instructions: Your bowel must be empty so that your doctor can clearly view your colon. Follow all of the instructions in this handout EXACTLY as they are written. Do NOT eat any solid food the ENTIRE day before your colonoscopy. Buy your bowel preparation at least 5 days before your colonoscopy. Four (4) Dulcolax laxative tablets containing 5mg of bisacodyl each (NOT Dulcolax stool softener) One (1) 8.3oz. bottle Miralax (238 grams) or generic equivalent 2 x 32oz. Bottles of Gatorade (NOT RED) Diabetic Patients: Use G2 (Gatorade 2) TRANSPORTATION on the Day of Your Exam A responsible adult MUST be present with you at Check In prior to your colonoscopy and REMAIN in the endoscopy area until you are discharged. You are NOT ALLOWED to drive, take a taxi or bus, or leave the Endoscopy Center ALONE. If you do not have a responsible ice cream truck driver (family member or friend) with you to take you home, your exam cannot be done with sedation and will be cancelled. Please bring a list of all of your current medications, including any Ronk-vps-Hbttouq medications with you. Medications If you take insulin, diabetic medications or blood thinners such as Coumadin (warfarin), Plavix (clopidogrel), Ticlid (ticlopidine hydrochloride), Agrylin (anagrelide), Xarelto (Rivaroxaban), Pradaxa (Dabigatran), Eliquis (Apixaban), and Effient (Prasugrel). You MUST call the doctors who orders those medicines for instructions on altering the dosage before your colonoscopy. All other medications should be taken the day of the exam with a sip of water including ASPIRIN. Five (5) Days Before Your Colonoscopy Do NOT take medicines that stop diarrhea - such as Imodium, Kaopectate, or Pepto Bismol. Do NOT take fiber supplements - such as Metamucil, Citrucel, or Perdiem. Do NOT take products that contain iron - such as multi-vitamins (the label lists what is in the products). Three (3) Days Before Your Colonoscopy Do NOT eat high-fiber foods - such as popcorn, beans, seeds (flax, sunflower, quinoa), multigrain bread, nuts, salad/vegetables, or fresh and dried fruit. 1 Bowel Preparation Instructions for: Miralax-Gatorade Preparations One (1) Day Before Your Colonoscopy Only drink clear liquids the ENTIRE DAY before your colonoscopy. Do NOT eat any solid foods. Drink at least 8 ounces of clear liquids every hour after waking up. The clear liquids you can drink include: Clear Liquid (NO RED LIQUIDS) DO NOT DRINK Gatorade, Pedialyte or Powerade Clear broth or bouillon Coffee or tea (no milk or non-dairy creamer) Carbonated and non-carbonated soft drinks Toro-Aid or other fruit flavored drinks Strained fruit juices (no pulp) Jell-O, popsicles, hard candy Water Alcohol Milk or non-dairy creamers Noodles or vegetables in soup Juice with pulp Liquid you cannot see through Do not use tobacco/vaping products Mix 1/2 of Miralax bottle (119 grams) in each 32 ounces of Gatorade bottle until dissolved. Keep cool in the refrigerator. DO NOT ADD ICE. The bowel preparation solution will be consumed in two parts. Part 1 5:00 PM - Evening before your colonoscopy Take 4 Dulcolax tablets. 6 PM - Evening before your colonoscopy Drink 32 oz. of the mixed solution. Drink an 8 oz. glass of bowel preparation every 15 minutes for a total of 4 glasses. Fifteen (15) minutes later, drink an 8 oz. glass of of clear liquids every 15 minutes for a total of 2 glasses. You may continue to drink clear liquids till midnight. Part 2 On the day of your colonoscopy you may drink clear liquids up to (three) 3 hours prior to procedure. 4 1/2 hours before your colonoscopy Take another 32 oz. bottle of mixed solution. Drink an 8 oz. glass of bowel prep every 15 minutes for a total of 4 glasses. Fifteen (15) minutes later, drink an 8 oz. glass of clear liquids every 15 minutes for a total of 2 glasses. You may continue to drink clear liquids up to (three) 3 hours before your exam. 2 09/2019 documented in this encounter [facility] 02-02-2023 History of Present illness Narrative Chief Complaint Patient presents with: Physical HPI Saad Villafana is a 48 year old female who presents here today for Above Complaints. Today: Has an annoying tickling cough from a virus a few months ago. BP-has been elevated at a few visits recently. Weight-is a cough potato. Has Graves disease, fibro, arthritis. Through winter was in pain a lot, things are better with the warmer weather. Has cyst on L3&L4-making it difficult to walk. Aspirated this cyst. Has a chronic fracture to her spine. Has had success in the past with Optifast diet through [place]. Past medical history, appointments, medications, allergies reviewed. Previous Medical History PAST MEDICAL HISTORY Diagnosis Date Anxiety Depression Low vitamin D level 07/30/2018 Migraines Previous Surgical History PAST SURGICAL HISTORY Procedure Laterality Date DELIVERY ONLY 10/22/2007 , low transverse CONIZATION CERVIX W/WO D&C RPR ELTRD EXC 10/22/1994 LEEP-Cervix CYST ASPIRATION Left 12/18/2022 KNEE ARTHROSCOPY 10/22/1984 Left SEPTOPLASTY/SUBMUCOUS RESECJ W/WO CARTILAGE GRF 10/22/2011 Family History FAMILY HISTORY Problem Relation Age of Onset Emphysema Paternal Grandfather Patient Allergies ALLERGIES Allergen Reactions Adhesive Rash, Other: See Comments Rash like blisters Amoxicillin Rash Latex Other: See Comments Blistering rash Seasonal Allergies Other: See Comments Nasal congestion, itchy eyes Current Medications Current Outpatient Medications on File Prior to Visit Medication Sig benzonatate (TESSALON PERLES) 100 mg capsule Take 1 capsule by mouth three times daily as needed for cough for up to 7 days. loratadine (CLARITIN) 10 mg tablet Take 1 tablet by mouth once daily. acetaminophen 325 mg-caffeine 40 mg-butalbital 50 mg (FIORICET) per tablet Take 1 tablet by mouth once daily as needed for headache (migraine headache). cyclobenzaprine (FLEXERIL) 10 mg tablet Take 1 tablet by mouth three times daily as needed for muscle spasm. gabapentin (NEURONTIN) 300 mg capsule Take 1 capsule in the morning and 1 capsule at bedtime for 3 days. If tolerated, okay to increase to 1 in the morning, 1 at lunch and 1 at bedtime. buPROPion XL (WELLBUTRIN XL) 150 mg 24 hr tablet Take 1 tablet by mouth once daily. traZODone (DESYREL) 50 mg tablet Take 2 tablets by mouth daily at bedtime. topiramate (TOPAMAX) 200 mg tablet Take 1 tablet by mouth once daily. rizatriptan (MAXALT) 10 mg tablet Take 1 tablet by mouth at first sign of headache/migraine. May take again in 2 hours if necessary. ondansetron orally disintegrating (ZOFRAN ODT) 4 mg disintegrating tablet Take 1 tablet by mouth every 8 hours as needed for nausea/vomiting. meclizine (ANTIVERT) 25 mg tab Take 1 tablet by mouth three times daily. escitalopram oxalate (LEXAPRO) 20 mg tablet Take 1 tablet by mouth once daily. METHOTREXATE ORAL Take by mouth. hydrocortisone (ANUSOL-HC) 2.5 % rectal cream by RECTAL route twice daily as needed (external hemorrhoids). External hemorrhoids hydroxychloroquine (PLAQUENIL) 200 mg tablet Take 200 mg by mouth twice daily. GABAPENTIN, BULK, MISC (Patient not taking: Reported on 02/02/2023) No current facility-administered medications on file prior to visit. Social History Social History Tobacco Use Smoking status: Never Smokeless tobacco: Never Substance Use Topics Alcohol use: Yes Comment: Occasionally Drug use: No Review of Symptoms REVIEW OF SYSTEMS See HPI, otherwise negative EXAM: BP 144/88 Pulse 100 Resp 18 Ht 169.5 cm (5' 6.73 ) Wt 101.8 kg (224 lb 6.4 oz) LMP 10/17/2021 (Approximate) SpO2 97% BMI 35.43 kg/m General Appearance: Well appearing, alert, in no acute distress, well-hydrated, well nourished. and Obese. Skin: Skin color, texture, turgor normal, no suspicious rashes or lesions. Head: Normocephalic, no masses, lesions, tenderness or abnormalities. Eyes: Anicteric sclera. Pupils are equally round and reactive to light. Extraocular movements are intact. . Ears: External ears normal, canals clear. Nose/Sinuses: Nares normal, septum midline, mucosa normal, no drainage or sinus tenderness. Oropharynx: Lips, mucosa, and tongue normal, teeth and gums normal, oropharynx normal. Neck: Supple, no adenopathy; thyroid symmetric, normal size, no bruits. +mild acanthosis nigricans Lungs: Lungs clear to auscultation. No wheezing, rhonchi, rales.. Heart: RRR without murmur, gallop, or rubs. No ectopy. Abdomen: Normal abdominal exam, Abdomen soft, non-tender. Bowel sounds normal. No masses, organomegaly. Extremities: No deformities, edema, skin discoloration, clubbing or cyanosis. Good capillary refill. . Musculoskeletal: No joint swelling, deformity, or tenderness. Peripheral Pulses: Normal. Lymph Nodes: No cervical lymphadenopathy and No supraclavicular lymphadenopathy. Psychiatric: pleasant, cooperative. Health Maintenance List HEPATITIS B(1 of 3 - 3-dose series) Never done PNEUMOCOCCAL(1 - PCV) Never done SHINGRIX VACCINE(1 of 2) Never done COLORECTAL CANCER SCREENING Never done MAMMOGRAM due on 12/27/2021 INFLUENZA(Season Ended) due on 06/22/2023 ANNUAL PCP TEAM CHRONIC DISEASE VISIT due on 08/16/2023 PAP TESTING due on 01/18/2024 HPV TESTING due on 01/18/2024 DIABETES SCREEN due on 04/01/2025 LIPID SCREEN due on 04/01/2027 DTAP,TDAP,TD(3 - Td or Tdap) due on 03/07/2032 HEPATITIS C SCREENING Completed HIV SCREENING Completed COVID-19 VACCINE Completed Data reviewed Previous records, office, [place] report PDMP website checked and validated. All prescriptions have been APPROPRIATELY filled. No suspicious activity was identified. 02/02/2023 by Vicente Lakhani CNP. ASSESSMENT/PLAN: 1. Essential (primary) hypertension - ICD9: 401.9, ICD10: I10 (primary diagnosis) - newly diagnosed - Begin lisinopril (Zestril/Prinivil) - Recommended regular aerobic exercise. - Recommend home blood pressure monitoring, to send results via [employer] in 2 weeks - Discussed need and benefit for weight loss. - Reviewed risks of HTN and principles of treatment - Goal of BP <130/80 - LISINOPRIL 5 MG TABLET - BLOOD PRESSURE MONITOR KIT 2. Obesity, Class II, BMI 35-39.9 - ICD9: 278.00, ICD10: E66.9 Weight increasing - Behavioral and pharmacological intervention - CBC - PHENTERMINE 37.5 MG TABLET 3. Arthritis, multiple joint involvement - ICD9: 716.99, ICD10: M12.9 controlled 4. Graves disease - ICD9: 242.00, ICD10: E05.00 Sees Endocrine 5. Low vitamin D level - ICD9: 790.6, ICD10: R79.89 - VITAMIN D 25 HYDROXY 6. Other fracture of unspecified lumbar vertebra, initial encounter for closed fracture (HCC) - ICD9: 805.4, ICD10: S32.008A controlled 7. Lumbosacral radiculopathy at L5 - ICD9: 724.4, ICD10: M54.17 controlled 8. Screening for diabetes mellitus - ICD9: V77.1, ICD10: Z13.1 - COMP METABOLIC PANEL - HGB A1C 9. Encounter for vitamin deficiency screening - ICD9: V77.99, ICD10: Z13.21 - VITAMIN D 25 HYDROXY - VITAMIN B12 BLOOD 10. Screening for lipid disorders - ICD9: V77.91, ICD10: Z13.220 - LIPID PANEL BASIC 11. Screening for colon cancer - ICD9: V76.51, ICD10: Z12.11 - COLONOSCOPY SCREENING Vicente Lakhani APRN.IGNACIO documented in this encounter [facility] 01-29-2023 Note HNO ID: [id number] Author: RT Zia(R) Service: Nuclear Medicine Author Type: Technologist Type: Progress Notes Filed: 01/29/2023 6:42 PM Note Text: Radiology Service Progress Note PATIENT NAME: Saad Villafana DATE OF SERVICE: January 29, 2023 TIME: 6:36 PM PATIENT IDENTITY VERIFICATION COMPLETED USING TWO (2) IDENTIFIERS: Name and Date of confirmed by patient verbally. FALL SCREENING: Has the patient had 2 falls in the last year or 1 fall with injury or currently using an Ambulatory Assistive Device (Walker, Cane, Wheelchair, Crutches, etc.)? No PATIENT GENDER DATA: Female. status: : No status: NO. PATIENT RELEVANT IMPLANT DATA REVIEWED: Not Applicable RADIOLOGY DEPARTMENT: General X-ray: Exam(s) Completed: Chest X-Ray PERIPHERAL IV DATA: Not applicable SIGNED BY: RT Zia(R) January 29, 2023 6:36 PM [facility] 01-29-2023 Note HNO ID: [id number] Author: Noah Morgan APRN.CNP Service: ? Author Type: Nurse Practitioner Type: Progress Notes Filed: 01/29/2023 7:40 PM Note Text: CC: Patient presents with: Chest Congestion: cough, sore throat and headache x 3.5 days HPI: Saad Villafana is a 48 year old female who presents to the office with complaint of chest congestion, cough, nonproductive, and sore throat for a few days. Symptoms are staying the same. Associated symptoms includes headache. Denies fever, ear pain, nausea, vomiting , and diarrhea. Treatments tried include nothing so far. with no relief of symptoms. Sick contacts: unknown. History of asthma, frequent episodes of bronchitis, chronic bronchitis, bronchiectasis or COPD: No Smoker: No Seasonal/environmental allergies: No The ROS is otherwise negative. The patient's pmh, medications, allergies, and past visits are reviewed. PHYSICAL EXAM: BP 148/86 Pulse (!) 128 Temp 37.4 ?C (99.3 ?F) Resp 20 Wt 102.1 kg (225 lb) LMP 01/23/2022 (Approximate) SpO2 97% BMI 36.32 kg/m? General appearance: alert, cooperative, pleasant, in no acute distress Head: Normocephalic Eyes: EOM's intact, conjunctiva pink and moist, no icterus, sclera white, non-injected Ears: Right ear: External ear/canal- Normal, TM - clear with good landmarks. Left ear: External ear/canal- Normal, TM - clear with good landmarks Oropharynx:mild erythema, without exudates present Heart: Negative. RRR without obvious murmur, gallop, or rubs. No ectopy. Lungs: clear to auscultation, without rales or wheeze, good air exchange PAST MEDICAL HISTORY Diagnosis Date Anxiety Depression Low vitamin D level 07/30/2018 Migraines PAST SURGICAL HISTORY Procedure Laterality Date DELIVERY ONLY 2007 , low transverse CONIZATION CERVIX W/WO DANDC RPR ELTRD EXC 1994 LEEP-Cervix KNEE ARTHROSCOPY 1985 Left SEPTOPLASTY/SUBMUCOUS RESECJ W/WO CARTILAGE GRF 2011 ALLERGIES Adhesive, Amoxicillin, Latex, and Seasonal Allergies MEDICATIONS acetaminophen 325 mg-caffeine 40 mg-butalbital 50 mg (FIORICET) per tablet Take 1 tablet by mouth once daily as needed for headache (migraine headache). cyclobenzaprine (FLEXERIL) 10 mg tablet Take 1 tablet by mouth three times daily as needed for muscle spasm. gabapentin (NEURONTIN) 300 mg capsule Take 1 capsule in the morning and 1 capsule at bedtime for 3 days. If tolerated, okay to increase to 1 in the morning, 1 at lunch and 1 at bedtime. buPROPion XL (WELLBUTRIN XL) 150 mg 24 hr tablet Take 1 tablet by mouth once daily. traZODone (DESYREL) 50 mg tablet Take 2 tablets by mouth daily at bedtime. topiramate (TOPAMAX) 200 mg tablet Take 1 tablet by mouth once daily. rizatriptan (MAXALT) 10 mg tablet Take 1 tablet by mouth at first sign of headache/migraine. May take again in 2 hours if necessary. ondansetron orally disintegrating (ZOFRAN ODT) 4 mg disintegrating tablet Take 1 tablet by mouth every 8 hours as needed for nausea/vomiting. meclizine (ANTIVERT) 25 mg tab Take 1 tablet by mouth three times daily. GABAPENTIN, BULK, MISC escitalopram oxalate (LEXAPRO) 20 mg tablet Take 1 tablet by mouth once daily. METHOTREXATE ORAL Take by mouth. hydrocortisone (ANUSOL-HC) 2.5 % rectal cream by RECTAL route twice daily as needed (external hemorrhoids). External hemorrhoids hydroxychloroquine (PLAQUENIL) 200 mg tablet Take 200 mg by mouth twice daily. FAMILY HISTORY Problem Relation Age of Onset Emphysema Paternal Grandfather Social History Tobacco Use Smoking status: Never Smokeless tobacco: Never Substance Use Topics Alcohol use: Yes Comment: Occasionally Drug use: No ASSESSMENT/PLAN: 1. URI, acute - ICD9: 465.9, ICD10: J06.9 (primary diagnosis) - COVID WITH FLUA+B, ROUTINE - LORATADINE 10 MG TABLET 2. Sore throat - ICD9: 462, ICD10: J02.9 - STREP A MOLECULAR (POC) - neg 3. Acute cough - ICD9: 786.2, ICD10: R05.1 - XR CHEST 2V FRONTAL/LAT * * * * Physician Interpretation * * * * EXAMINATION: CHEST RADIOGRAPH (2 VIEW FRONTAL AND LATERAL) CLINICAL HISTORY: Acute cough MQ: XC2_6 EXAM DATE/TIME: 01/29/2023 6:42 PM COMPARISON: 08/24/2016. RESULT: Lines, tubes, and devices: None. Lungs and pleura: No consolidation. No lung mass. No pleural effusion. No pneumothorax. Cardiomediastinal silhouette: Normal cardiomediastinal silhouette. Bones and soft tissues: Unremarkable. IMPRESSION IMPRESSION: Stable and unremarkable exam with no acute radiographic abnormality. Enologist: DOMINIQUE Transcribe Date/Time: Jan 29 2023 7:22P Dictated by : PAOLA GRAHAM MD - BENZONATATE 100 MG CAPSULE Waiting for viral swab results. Prescription instructions reviewed with patient as applicable. Potential red flag symptoms discussed with the patient. Reviewed appropriate action plan to take if red flag symptoms occur. Patient agreeable to treatment plan. Noah Bowen (more content not included)... [facility] 01-29-2023 History of Present illness Narrative CC: Patient presents with: Chest Congestion: cough, sore throat and headache x 3.5 days HPI: Saad Villafana is a 48 year old female who presents to the office with complaint of chest congestion, cough, nonproductive, and sore throat for a few days. Symptoms are staying the same. Associated symptoms includes headache. Denies fever, ear pain, nausea, vomiting , and diarrhea. Treatments tried include nothing so far. with no relief of symptoms. Sick contacts: unknown. History of asthma, frequent episodes of bronchitis, chronic bronchitis, bronchiectasis or COPD: No Smoker: No Seasonal/environmental allergies: No The ROS is otherwise negative. The patient's pmh, medications, allergies, and past visits are reviewed. PHYSICAL EXAM: BP 148/86 Pulse (!) 128 Temp 37.4 C (99.3 F) Resp 20 Wt 102.1 kg (225 lb) LMP 01/23/2022 (Approximate) SpO2 97% BMI 36.32 kg/m General appearance: alert, cooperative, pleasant, in no acute distress Head: Normocephalic Eyes: EOM's intact, conjunctiva pink and moist, no icterus, sclera white, non-injected Ears: Right ear: External ear/canal- Normal, TM - clear with good landmarks. Left ear: External ear/canal- Normal, TM - clear with good landmarks Oropharynx:mild erythema, without exudates present Heart: Negative. RRR without obvious murmur, gallop, or rubs. No ectopy. Lungs: clear to auscultation, without rales or wheeze, good air exchange PAST MEDICAL HISTORY Diagnosis Date Anxiety Depression Low vitamin D level 07/30/2018 Migraines PAST SURGICAL HISTORY Procedure Laterality Date DELIVERY ONLY 2007 , low transverse CONIZATION CERVIX W/WO D&C RPR ELTRD EXC 1994 LEEP-Cervix KNEE ARTHROSCOPY 1985 Left SEPTOPLASTY/SUBMUCOUS RESECJ W/WO CARTILAGE GRF 2011 ALLERGIES Adhesive, Amoxicillin, Latex, and Seasonal Allergies MEDICATIONS acetaminophen 325 mg-caffeine 40 mg-butalbital 50 mg (FIORICET) per tablet Take 1 tablet by mouth once daily as needed for headache (migraine headache). cyclobenzaprine (FLEXERIL) 10 mg tablet Take 1 tablet by mouth three times daily as needed for muscle spasm. gabapentin (NEURONTIN) 300 mg capsule Take 1 capsule in the morning and 1 capsule at bedtime for 3 days. If tolerated, okay to increase to 1 in the morning, 1 at lunch and 1 at bedtime. buPROPion XL (WELLBUTRIN XL) 150 mg 24 hr tablet Take 1 tablet by mouth once daily. traZODone (DESYREL) 50 mg tablet Take 2 tablets by mouth daily at bedtime. topiramate (TOPAMAX) 200 mg tablet Take 1 tablet by mouth once daily. rizatriptan (MAXALT) 10 mg tablet Take 1 tablet by mouth at first sign of headache/migraine. May take again in 2 hours if necessary. ondansetron orally disintegrating (ZOFRAN ODT) 4 mg disintegrating tablet Take 1 tablet by mouth every 8 hours as needed for nausea/vomiting. meclizine (ANTIVERT) 25 mg tab Take 1 tablet by mouth three times daily. GABAPENTIN, BULK, MISC escitalopram oxalate (LEXAPRO) 20 mg tablet Take 1 tablet by mouth once daily. METHOTREXATE ORAL Take by mouth. hydrocortisone (ANUSOL-HC) 2.5 % rectal cream by RECTAL route twice daily as needed (external hemorrhoids). External hemorrhoids hydroxychloroquine (PLAQUENIL) 200 mg tablet Take 200 mg by mouth twice daily. FAMILY HISTORY Problem Relation Age of Onset Emphysema Paternal Grandfather Social History Tobacco Use Smoking status: Never Smokeless tobacco: Never Substance Use Topics Alcohol use: Yes Comment: Occasionally Drug use: No ASSESSMENT/PLAN: 1. URI, acute - ICD9: 465.9, ICD10: J06.9 (primary diagnosis) - COVID WITH FLUA+B, ROUTINE - LORATADINE 10 MG TABLET 2. Sore throat - ICD9: 462, ICD10: J02.9 - STREP A MOLECULAR (POC) - neg 3. Acute cough - ICD9: 786.2, ICD10: R05.1 - XR CHEST 2V FRONTAL/LAT * * * * Physician Interpretation * * * * EXAMINATION: CHEST RADIOGRAPH (2 VIEW FRONTAL & LATERAL) CLINICAL HISTORY: Acute cough MQ: XC2_6 EXAM DATE/TIME: 01/29/2023 6:42 PM COMPARISON: 08/24/2016. RESULT: Lines, tubes, and devices: None. Lungs and pleura: No consolidation. No lung mass. No pleural effusion. No pneumothorax. Cardiomediastinal silhouette: Normal cardiomediastinal silhouette. Bones and soft tissues: Unremarkable. IMPRESSION IMPRESSION: Stable and unremarkable exam with no acute radiographic abnormality. Enologist: DOMINIQUE Transcribe Date/Time: Jan 29 2023 7:22P Dictated by : PAOLA GRAHAM MD - BENZONATATE 100 MG CAPSULE Waiting for viral swab results. Prescription instructions reviewed with patient as applicable. Potential red flag symptoms discussed with the patient. Reviewed appropriate action plan to take if red flag symptoms occur. Patient agreeable to treatment plan. Noah Morgan APRN.IGNACIO documented in this encounter [facility] 01-29-2023 Miscellaneous Notes Advised to schedule appt Nisreen Polk documented in this encounter [facility] 01-19-2023 Note HNO ID: [id number] Author: Reyna Murrieta MD Service: ? Author Type: Physician Type: Progress Notes Filed: 01/19/2023 1:14 PM Note Text: ENDOCRINOLOGY DISTANCE HEALTH VISIT This visit was conducted via my chart I have communicated my name and active licensure. The patient's identity and physical location were verified at the time of this visit. The patient consents to proceed with the evaluation remotely. Subjective: Saad Villafana is a 48 year old female here for hyperthyroidism and thyroid nodule follow up. She was initially diagnosed with a thyroid disorder in 2013, when she went to ER for increased anxiety and depression. She was later found to have Graves disease and was started on methimazole. I reduced her dose last year Current treatment: Methimazole 2.5 mg every other day daily since January 2020 Interval history: Increased fibromyalgia flares up recently General symptoms: Fatigue: increased exhaustion Weight change: No Appetite change: No Menstrual irregularities: currently in perimenopause Change in bowel habits: intermittent diarrhea Temperature intolerance: No Anxiety/Nervousness: occasionally she feels restless Tremor: only in her right hand Palpitations: No Patient has muscle ache and joint stiffness due to fibromyalgia and arthritis On plaquenil and methotrexate She has a thyroid nodule No compressive symptoms She denies dysphagia or dyspnea Reports dry mouth Thyroid US (Jun 2021) Right Lobe: 4.4 x 1.9 x 1.3 cm; heterogeneous echogenicity, slightly increased vascular flow. Left Lobe: 4.5 x 1.7 x 1.6 cm; heterogeneous echogenicity, slightly increased vascular flow. Isthmus: 0.45 cm The most suspicious thyroid nodule(s) (up to four) as below: NODULE 1: Location: Inferior isthmus to the right of midline Size: 1.0 x 0.7 x 0.3 cm Characteristics: Composition: Solid or almost completely solid, 2 points Echogenicity: Hypoechoic, 2 points Shape: [id number], 0 points Margin: Smooth, 0 points Echogenic foci (add points for all that apply): None, 0 points None, 0 points Internal vascularity: absent Interval growth: No significant growth given differences in technique TI-RADS Category: TR4 ACR Recommendation: TI-RADS 4 nodule. Follow up imaging in 1, 2, 3 and 5 years is advised. REVIEW OF SYSTEMS: Answers submitted by the patient for this visit: Core Review of Systems (Submitted on 11/23/2022) Fever : No Night Sweats: No Recent Unintentional Weight Change: No Nasal Congestion: Yes Hearing Loss: No Vision Disturbance: No A Cough: No Difficulty Breathing?: No Chest Pain: No Irregular Heart Beat: No Leg Swelling: No Nausea: No Diarrhea: No Black Tarry Stools: No Awaken at Night More Than Once to Urinate?: No Joint Pain or Stiffness: Yes Muscle Aches: Yes Leg or Foot Discomfort at Night?: No A Rash: No Dizziness: No Headaches: Yes Memory Loss: No Seizures: No ALLERGIES: ALLERGIES Allergen Reactions Adhesive Rash, Other: See Comments Rash like blisters Amoxicillin Rash Latex Other: See Comments Blistering rash Seasonal Allergies Other: See Comments Nasal congestion, itchy eyes MEDICATIONS: Current Outpatient Medications on File Prior to Visit Medication Sig acetaminophen 325 mg-caffeine 40 mg-butalbital 50 mg (FIORICET) per tablet Take 1 tablet by mouth once daily as needed for headache (migraine headache). cyclobenzaprine (FLEXERIL) 10 mg tablet Take 1 tablet by mouth three times daily as needed for muscle spasm. gabapentin (NEURONTIN) 300 mg capsule Take 1 capsule in the morning and 1 capsule at bedtime for 3 days. If tolerated, okay to increase to 1 in the morning, 1 at lunch and 1 at bedtime. buPROPion XL (WELLBUTRIN XL) 150 mg 24 hr tablet Take 1 tablet by mouth once daily. methIMAzole (TAPAZOLE) 5 mg tablet Take 0.5 tablets by mouth every other day. traZODone (DESYREL) 50 mg tablet Take 2 tablets by mouth daily at bedtime. topiramate (TOPAMAX) 200 mg tablet Take 1 tablet by mouth once daily. rizatriptan (MAXALT) 10 mg tablet Take 1 tablet by mouth at first sign of headache/migraine. May take again in 2 hours if necessary. ondansetron orally disintegrating (ZOFRAN ODT) 4 mg disintegrating tablet Take 1 tablet by mouth every 8 hours as needed for nausea/vomiting. meclizine (ANTIVERT) 25 mg tab Take 1 tablet by mouth three times daily. GABAPENTIN, BULK, MISC escitalopram oxalate (LEXAPRO) 20 mg tablet Take 1 tablet by mouth once daily. METHOTREXATE ORAL Take by mouth. hydrocortisone (ANUSOL-HC) 2.5 % rectal cream by RECTAL route twice daily as needed (external hemorrhoids). External hemorrhoids hydroxychloroquine (PLAQUENIL) 200 mg tablet Take 200 mg by mouth twice daily. No current facility-administered medications on file prior to visit. PAST MEDICAL HISTORY: PAST MEDICAL HISTORY Diagnosis Date Anxiety Depression Low vitamin D level (more content not included)... [facility] 01-19-2023 History of Present illness Narrative ENDOCRINOLOGY [facility] VISIT This visit was conducted via my chart I have communicated my name and active licensure. The patient's identity and physical location were verified at the time of this visit. The patient consents to proceed with the evaluation remotely. Subjective: Saad Villafana is a 48 year old female here for hyperthyroidism and thyroid nodule follow up. She was initially diagnosed with a thyroid disorder in 2013, when she went to ER for increased anxiety and depression. She was later found to have Graves disease and was started on methimazole. I reduced her dose last year Current treatment: Methimazole 2.5 mg every other day daily since January 2020 Interval history: Increased fibromyalgia flares up recently General symptoms: Fatigue: increased exhaustion Weight change: No Appetite change: No Menstrual irregularities: currently in perimenopause Change in bowel habits: intermittent diarrhea Temperature intolerance: No Anxiety/Nervousness: occasionally she feels restless Tremor: only in her right hand Palpitations: No Patient has muscle ache and joint stiffness due to fibromyalgia and arthritis On plaquenil and methotrexate She has a thyroid nodule No compressive symptoms She denies dysphagia or dyspnea Reports dry mouth Thyroid US (Jun 2021) Right Lobe: 4.4 x 1.9 x 1.3 cm; heterogeneous echogenicity, slightly increased vascular flow. Left Lobe: 4.5 x 1.7 x 1.6 cm; heterogeneous echogenicity, slightly increased vascular flow. Isthmus: 0.45 cm The most suspicious thyroid nodule(s) (up to four) as below: NODULE 1: Location: Inferior isthmus to the right of midline Size: 1.0 x 0.7 x 0.3 cm Characteristics: Composition: Solid or almost completely solid, 2 points Echogenicity: Hypoechoic, 2 points Shape: [id number], 0 points Margin: Smooth, 0 points Echogenic foci (add points for all that apply): None, 0 points None, 0 points Internal vascularity: absent Interval growth: No significant growth given differences in technique TI-RADS Category: TR4 ACR Recommendation: TI-RADS 4 nodule. Follow up imaging in 1, 2, 3 and 5 years is advised. REVIEW OF SYSTEMS: Answers submitted by the patient for this visit: Core Review of Systems (Submitted on 11/23/2022) Fever : No Night Sweats: No Recent Unintentional Weight Change: No Nasal Congestion: Yes Hearing Loss: No Vision Disturbance: No A Cough: No Difficulty Breathing?: No Chest Pain: No Irregular Heart Beat: No Leg Swelling: No Nausea: No Diarrhea: No Black Tarry Stools: No Awaken at Night More Than Once to Urinate?: No Joint Pain or Stiffness: Yes Muscle Aches: Yes Leg or Foot Discomfort at Night?: No A Rash: No Dizziness: No Headaches: Yes Memory Loss: No Seizures: No ALLERGIES: ALLERGIES Allergen Reactions Adhesive Rash, Other: See Comments Rash like blisters Amoxicillin Rash Latex Other: See Comments Blistering rash Seasonal Allergies Other: See Comments Nasal congestion, itchy eyes MEDICATIONS: Current Outpatient Medications on File Prior to Visit Medication Sig acetaminophen 325 mg-caffeine 40 mg-butalbital 50 mg (FIORICET) per tablet Take 1 tablet by mouth once daily as needed for headache (migraine headache). cyclobenzaprine (FLEXERIL) 10 mg tablet Take 1 tablet by mouth three times daily as needed for muscle spasm. gabapentin (NEURONTIN) 300 mg capsule Take 1 capsule in the morning and 1 capsule at bedtime for 3 days. If tolerated, okay to increase to 1 in the morning, 1 at lunch and 1 at bedtime. buPROPion XL (WELLBUTRIN XL) 150 mg 24 hr tablet Take 1 tablet by mouth once daily. methIMAzole (TAPAZOLE) 5 mg tablet Take 0.5 tablets by mouth every other day. traZODone (DESYREL) 50 mg tablet Take 2 tablets by mouth daily at bedtime. topiramate (TOPAMAX) 200 mg tablet Take 1 tablet by mouth once daily. rizatriptan (MAXALT) 10 mg tablet Take 1 tablet by mouth at first sign of headache/migraine. May take again in 2 hours if necessary. ondansetron orally disintegrating (ZOFRAN ODT) 4 mg disintegrating tablet Take 1 tablet by mouth every 8 hours as needed for nausea/vomiting. meclizine (ANTIVERT) 25 mg tab Take 1 tablet by mouth three times daily. GABAPENTIN, BULK, MISC escitalopram oxalate (LEXAPRO) 20 mg tablet Take 1 tablet by mouth once daily. METHOTREXATE ORAL Take by mouth. hydrocortisone (ANUSOL-HC) 2.5 % rectal cream by RECTAL route twice daily as needed (external hemorrhoids). External hemorrhoids hydroxychloroquine (PLAQUENIL) 200 mg tablet Take 200 mg by mouth twice daily. No current facility-administered medications on file prior to visit. PAST MEDICAL HISTORY: PAST MEDICAL HISTORY Diagnosis Date Anxiety Depression Low vitamin D level 07/30/2018 Migraines PHYSICAL EXAM: Alert and oriented x3, no acute distress LAB: Latest Reference Range & Units 03/31/22 12:20 2 09:19 Free T4 0.9 - 1.7 ng/dL 1.1 1.0 TSH 0.270 - 4.200 mIU/L 1.910 3.950 Free T3 2.3 - 4.1 pg/mL 2.7 ASSESSMENT/PLAN: 1) Hyperthyroidism due to Graves disease 2) Thyroid Nodule Clinically, she appears hypothyroid Reviewed and discussed the recent TFTs Stop methimazole Recheck TFTS Update thyroid US in 2022 to reassess the size of thyroid nodule I will send patient a message in my chart once the results become available Follow up in 6 months. Reyna Murrieta MD documented in this encounter [facility] 01-12-2023 Miscellaneous Notes Patient has been identified by name and date of : Yes, Patient phones for refill(s): Requested Prescriptions Pending Prescriptions Disp Refills acetaminophen 325 mg-caffeine 40 mg-butalbital 50 mg (FIORICET) per tablet 30 tablet 1 Sig: Take 1 tablet by mouth once daily as needed for headache (migraine headache). Date of last office visit in primary care: [facility] 08/16/2022 No appointment scheduled Last 2 Encounter Wt Readings: Date: Wt: 08/30/2022 103.2 kg (227 lb 9.6 oz) 08/16/2022 102.2 kg (225 lb 6.4 oz) Please advise. Thank you. ADRIANA Watson documented in this encounter [facility] 01-12-2023 Miscellaneous Notes Patient has been identified by name and date of : Yes, Patient phones for refill(s): Requested Prescriptions Pending Prescriptions Disp Refills cyclobenzaprine (FLEXERIL) 10 mg tablet 30 tablet 0 Sig: Take 1 tablet by mouth three times daily as needed for muscle spasm. gabapentin (NEURONTIN) 300 mg capsule 90 capsule 0 Sig: Take 1 capsule in the morning and 1 capsule at bedtime for 3 days. If tolerated, okay to increase to 1 in the morning, 1 at lunch and 1 at bedtime. Date of last office visit in primary care: [facility] 08/16/2022 with [facility] No appointment scheduled Last 2 Encounter Wt Readings: Date: Wt: 08/30/2022 103.2 kg (227 lb 9.6 oz) 08/16/2022 102.2 kg (225 lb 6.4 oz) Please advise. Thank you. ADRIANA Watson documented in this encounter [facility] 11-30-2022 Miscellaneous Notes Closed. documented in this encounter [facility] 11-22-2022 Miscellaneous Notes Patient has been identified by name and date of : Yes, Provider Dr. Howard Date 11/22/22 Time 4:30 pm Patient phones for refill(s): Requested Prescriptions Pending Prescriptions Disp Refills gabapentin (NEURONTIN) 300 mg capsule 90 capsule 0 Sig: Take 1 capsule in the morning and 1 capsule at bedtime for 3 days. If tolerated, okay to increase to 1 in the morning, 1 at lunch and 1 at bedtime. Date of last office visit in primary care: 08/31/22 Last 2 Encounter Wt Readings: Date: Wt: 08/30/2022 103.2 kg (227 lb 9.6 oz) 08/16/2022 102.2 kg (225 lb 6.4 oz) Previous labs/tests for medication: Not applicable Please advise. Thank you. Kym Tellez LPN documented in this encounter [facility] 11-22-2022 Miscellaneous Notes Patient has been identified by name and date of : Yes, Provider Dr. Howard Date 11/22/22 Time 4:25 pm Patient phones for refill(s): Requested Prescriptions Pending Prescriptions Disp Refills buPROPion XL (WELLBUTRIN XL) 150 mg 24 hr tablet 90 tablet 0 Sig: Take 1 tablet by mouth once daily. methIMAzole (TAPAZOLE) 5 mg tablet 20 tablet 3 Sig: Take 0.5 tablets by mouth every other day. cyclobenzaprine (FLEXERIL) 10 mg tablet 30 tablet 0 Sig: Take 1 tablet by mouth three times daily as needed for muscle spasm. Date of last office visit in primary care: Last 2 Encounter Wt Readings: Date: Wt: 08/30/2022 103.2 kg (227 lb 9.6 oz) 08/16/2022 102.2 kg (225 lb 6.4 oz) Previous labs/tests for medication: Not applicable Thank you. Kym Tellez LPN documented in this encounter [facility] 11-02-2022 Miscellaneous Notes Patient phones requesting refills as follows: Requested Prescriptions Pending Prescriptions Disp Refills traZODone (DESYREL) 50 mg tablet 180 tablet 3 Sig: Take 2 tablets by mouth daily at bedtime. RAFAEL-08/31/22 Labs-10/11/22 NOV-none med filled 10/04/21 Please review and advise. Yin Ryan LPN documented in this encounter [facility] 10-09-2022 Miscellaneous Notes Rafael--08/31/22 Nov--nothing scheduled Last refill--08/16/22 90 with 0 refills 12 with 2 refills Last labs--04/01/22 documented in this encounter [facility] 10-09-2022 Miscellaneous Notes Pt. informed. Please have her start on prednisone for the migraine as well as zofran. If not improved, can bring her into the office to see [facility] HELPER to consider Toradol and Kenalog injections next. Lawrence Howard DO The following approved medication requests have been transmitted electronically. Requested Prescriptions Signed Prescriptions Disp Refills ondansetron orally disintegrating (ZOFRAN ODT) 4 mg disintegrating tablet 20 tablet 1 Sig: Take 1 tablet by mouth every 8 hours as needed for nausea/vomiting. Authorizing Provider: LAWRENCE HOWARD predniSONE (DELTASONE) 20 mg tablet 10 tablet 0 Sig: Take 2 tablets by mouth once daily for 5 days. Authorizing Provider: LAWRENCE HOWARD DO Pt calls to report she has had a migraine since 10/05. Pt reports pain is a 8/9 for the most part. Maxalt will bring pain down some but migraine will not go away. Pt reports she now has N/V from pain. Pt reports pain is all over head and top of neck/base of head on right side. Pt reports she has been taking daily migraine medication and Maxalt. Pt is asking what else she can do or take. Pt is asking also for something for nausea. Please review and advise. Luz Maria Al LPN documented in this encounter [facility] 10-02-2022 Miscellaneous Notes Rafael--08/31/22 Nov--NOTHING SCHEDULED Last refill--CYCLOBENZAPRINE--08-16-22 30 WITH 0- REFILLS FIORICET --08/16/22 30 WITH 1 REFILL TAPAZOLE--08/16/22 20 WITH 3 REFILLS Last labs--04/01/22 documented in this encounter [facility] 09-26-2022 Miscellaneous Notes Dates pended to patient via Miscota message Order present in [facility] for Left L4-L5 Lumbar Transforaminal Epidural Injection Patient added to injection scheduling spreadsheet in Epic Office to contact patient within 5 business days to schedule Patient sent in Web request for an injection. Order in chart by Natasha Garcia. Unable to forward Web request. Please contact patient to schedule. TY documented in this encounter [facility] 09-04-2022 History of Present illness Narrative SPINE SURGERY ESTABLISHED ZOOM DATE OF SERVICE: 09/04/2022 DATE OF LAST VISIT: 05/12/2022 SUBJECTIVE: HPI: Continues with chronic low back pain > left leg pain (L5). She states that she was previously well controlled with gabapentin, however, pain has increased over the last few months. Notes subjective left leg weakness. Pain is aggravated by walking without ability to find position of relief. Patient is currently on MTX for arthritis. CMT: -Physical Therapy (04/11/2022, 04/27/2022) -Home Exercise Program (Daily) -NSAIDs (Ibuprofen) -Muscle Relaxants (Flexeril) -Gabapentin 300 mg TID AMBULATORY STATUS: Impaired Community Distances ANTIPLATELET OR ANTICOAGULATION STATUS: No PREVIOUS CONSERVATIVE TREATMENTS: SEE HPI REVIEW OF SYSTEMS: GENERAL: No weight loss or malaise MUSCULOSKELETAL: SEE HPI NEURO: No history of headaches, syncope, paralysis, seizures or tremors MEDICATIONS: nirmatrelvir tablet 300 mg (150 mg x 2) and ritonavir tablet 100 mg in a dose pack (PAXLOVID) Administer TWO pink nirmatrelvir 150 mg tablets and ONE white ritonavir 100 mg tablet for a total of three tablets twice daily. gabapentin (NEURONTIN) 300 mg capsule Take 1 capsule in the morning and 1 capsule at bedtime for 3 days. If tolerated, okay to increase to 1 in the morning, 1 at lunch and 1 at bedtime. methIMAzole (TAPAZOLE) 5 mg tablet Take 0.5 tablets by mouth every other day. topiramate (TOPAMAX) 200 mg tablet Take 1 tablet by mouth once daily. buPROPion XL (WELLBUTRIN XL) 150 mg 24 hr tablet Take 1 tablet by mouth once daily. rizatriptan (MAXALT) 10 mg tablet Take 1 tablet by mouth at first sign of headache/migraine. May take again in 2 hours if necessary. acetaminophen 325 mg-caffeine 40 mg-butalbital 50 mg (FIORICET) per tablet Take 1 tablet by mouth once daily as needed for headache (migraine headache). cyclobenzaprine (FLEXERIL) 10 mg tablet Take 1 tablet by mouth three times daily as needed for muscle spasm. meclizine (ANTIVERT) 25 mg tab Take 1 tablet by mouth three times daily. GABAPENTIN, BULK, MISC escitalopram oxalate (LEXAPRO) 20 mg tablet Take 1 tablet by mouth once daily. METHOTREXATE ORAL Take by mouth. traZODone (DESYREL) 50 mg tablet Take 2 tablets by mouth daily at bedtime. hydrocortisone (ANUSOL-HC) 2.5 % rectal cream by RECTAL route twice daily as needed (external hemorrhoids). External hemorrhoids hydroxychloroquine (PLAQUENIL) 200 mg tablet Take 200 mg by mouth twice daily. Patient Entered Questionnaires Spine Questions 05/06/2022 08/30/2022 Pain Location: Lower back Lower back Symptoms from neck/cervical spine: No No Employment Status: Working now Working now Involved in law suit/legal claim: No - Spine Red Flags 08/30/2022 Any type of cancer: No Unexplained fever: No Bowel or bladder disfunction: No Unintentional weight loss: No Osteoporosis: No Low Back Pain Questionnaires 04/10/2022 STarT Risk Score 3 (Medium risk for prolonged disability) STarT Distress Score 1 STarT Total Score 5 PROMIS Score Percentiles Physical Health 04/10/2022 05/06/2022 08/30/2022 Physical Function Percentile 16* 5 10 Sleep Percentile - 14 24* Fatigue Percentile 8 8 4 Pain Interference Percentile 14 5 5 PROMIS SOCIAL ROLE SCORE 04/10/2022 05/06/2022 08/30/2022 Social Role Satisfaction Percentile 24* 14 8 PROMIS Global Health Scale 03/28/2022 08/14/2022 08/30/2022 Physical Health Percentile 15 31 7 Mental Health Percentile 53 53 19* Percentiles provide an indication of how the patient's score ranks in relation to the general population. Higher percentile rankings indicate better function/quality of life. 50th percentile is the average of the general population and indicates half of respondents had a worse score. Depression Screening: PHQ-9 07/13/2021 05/06/2022 08/30/2022 Score 1 1 1 PHQ-9 Self-harm Question 07/13/2021 05/06/2022 08/30/2022 Thoughts that you would be better off , or of hurting yourself in some way 0 0 0 PHQ-9 Self-Harm (Item 9) response options: 0 Not at all 1 Several days 2 More than half the days 3 Nearly every day PHQ-9 Levels: 0-4 No to mild depression 5-9 Mild depression 10-14 Moderate depression 15-19 Moderately severe depression 20-27 Severe depression OBJECTIVE: PHYSICAL EXAM LIMITED DUE TO ZOOM LMP 01/23/2022 DATA REVIEW:Diagnostic tests reviewed for today's visit, films/specimens were personally reviewed by me: [facility] records independently reviewed Imaging and outside records independently reviewed Images independently reviewed with the patient ASSESSMENT/PLAN (M54.42, G89.29) Chronic bilateral low back pain with left-sided sciatica (primary encounter diagnosis) (M71.38) Synovial cyst of lumbar facet joint Saad Villafana is a 47 year old female presenting today with ongoing low back pain and left leg pain. Recommend trial of a left L4-L5 transforaminal epidural steroid injection with possible cyst aspiration. She will call Dr. Garcia's office to schedule. Follow-up virtual visit recommended for 2-4 weeks following injection. Saad Villafana will continue with medical management of his/her condition. Consults: Medical Spine Intervention Follow up: 2-4 weeks following ANURADHA. The majority of the visit was spent counseling and/or coordinating care for the patient. The patient was counseled regarding low back pain. Total face to face time was 30 minutes. SIGNATURE: Natasha Garcia PA-C PATIENT NAME: Saad Villafana DATE: September 04, 2022 TIME: 8:08 AM PAGER:[phone] documented in this encounter [facility] 08-31-2022 Instructions Mae Fiore APRN.DIGITAL ASSISTANT - 08/31/2022 1:29 PM EST Beginning Home Isolation Isolation is used to separate people infected with SARS-CoV-2, the virus that causes COVID-19, from people who are not infected. People who are in isolation should stay home until it s safe for them to be around others. In the home, anyone sick or infected should separate themselves from others by staying in a specific sick room or area and using a separate bathroom (if available). Isolation or Quarantine: What's the difference? Quarantine keeps someone who might have been exposed to the virus away from others. Isolation keeps someone who is infected with the virus away from others, even in their home. Who needs to isolate People who have COVID-19 People who have symptoms of COVID-19 and are able to recover at home People who have no symptoms (are asymptomatic) but have tested positive for infection with SARS-CoV-2 Steps to take Stay home except to get medical care Monitor your symptoms. Stay in a separate room from other household members, if possible Use a separate bathroom, if possible Avoid contact with other members of the household and pets Don t share personal household items, like cups, towels, and utensils Wear a mask when around other people, if you are able to When to seek emergency medical attention Look for emergency warning signs* for COVID-19. If someone is showing any of these signs, seek emergency medical care immediately: Trouble breathing Persistent pain or pressure in the chest New confusion Inability to wake or stay awake Bluish lips or face *This list is not all possible symptoms. Please call your medical provider for any other symptoms that are severe or concerning to you. Call 911 or call ahead to your local emergency facility: Notify the dimethylaniline sulfator operator that you are seeking care for someone who has or may have COVID-19. Ending Home Isolation - When you can be around others after you had or likely had COVID-19 When you can be around others after you had or likely had COVID-19 If You Test Positive for COVID-19 (Isolation) Everyone, regardless of vaccination status: Stay home for 5 days. Note: Day 0 is your first day of symptoms or the date of collection of a positive viral test if no symptoms. Day 1 is the first full day after symptoms developed or test specimen was collected. If you have no symptoms or your symptoms are resolving after 5 days, you can leave your house. Continue to wear a mask around others for 5 additional days. If you have a fever, continue to stay home until your fever resolves, even if it is longer than 5 days. If You Were Exposed to Someone with COVID-19 (Quarantine) If you: 1. Have been boosted OR 2. Completed the primary series of Pfizer or Moderna vaccine within the last 6 months OR 3. Completed the primary series of J&J vaccine within the last 2 months THEN: 1. Wear a mask around others for 10 days. 2. Test on day 5, if possible. If you develop symptoms get a test and stay home. If You Were Exposed to Someone with COVID-19 (Quarantine) If you: 1. Completed the primary series of Pfizer or Moderna vaccine over 6 months ago and are not boosted OR 2. Completed the primary series of J&J over 2 months ago and are not boosted OR 3. Are unvaccinated THEN: 1. Stay home for 5 days. After that continue to wear a mask around others for 5 additional days. 2. If you can't quarantine you must wear a mask for 10 days. 3. Test on day 5 if possible. If you develop symptoms get a test and stay home. I had COVID-19 or I tested positive for COVID-19 and I have a weakened immune system If you have a weakened immune system (immunocompromised) due to a health condition or medication, you might need to stay home and isolate longer than 10 days. Talk to your healthcare provider for more information. Your doctor may work with an infectious disease expert at your local health department to determine when you can be around others. How to Manage Common Symptoms Associated with COVID for Adults Fever- Fever is a temperature over 100.4 F and can occur when the body is fighting an infection. To help treat a fever: Drink plenty of fluids and stay well hydrated. Eat small amounts of easy to digest food. Rest. Your body needs rest to recover, but getting up and moving around the house frequently is a good idea. You should try to continue doing your normal daily activities (bathing, toileting, grooming, cooking), though you will probably feel tired, and need to rest often. Avoid any heavy activity or exercise, as this will increase your body temperature. Dress in light clothing and stay covered in a light sheet. Keep the room temperature cool. Take a slightly warm (not cold or cool) bath, or apply damp washcloths to the forehead and wrists. Cough- Cough is a common symptom associated with COVID and can be bothersome. To help treat a cough: Stay well hydrated. Try warm water or tea with lemon and/or honey to help soothe the cough. Use a humidifier to add moisture to the air. Try a product with menthol, like a cough drop or a rub for your chest such as Vicks, which can help reduce cough. Try cough drops. Avoid smoking and other strong odors or perfumes. Try breathing exercises to keep your lungs open and clear. Take a big deep breath through your nose and hold for 5 seconds before slowly releasing. Repeat frequently, while you are awake. Congestion- Runny nose or nasal congestion can occur with COVID. Treatment can help relieve symptoms: Try OTC nasal saline spray, or nasal saline rinse to relieve mucus congestion. Nasal strips can help keep nasal passages open, to increase airflow. Elevating your head with an extra pillow in bed can help reduce congestion. Using a humidifier can increase moisture in the air, and make breathing easier. Sore Throat- Another common symptom with COVID, can be managed at home by: Stay well hydrated. Gargle with salt water - mix teaspoon salt with 1 cup of warm water and gargle. This helps to loosen mucus in the back of the throat and may reduce discomfort. Try ice chips, popsicles or lozenges to soothe the throat. Nausea/Vomiting/Diarrhea- These are common symptoms, and staying hydrated is most important. If you are nauseous or vomiting, start with small sips of water every 10-15 minutes and increase as tolerated. You can try sucking an ice cube too. If tolerating, you can try pedialyte or Gatorade, or flat sprite or stew-gurinder. Start slowly and increase as you are able to. Instead of meals, try smaller, more frequent snacks. Try eating bland foods like crackers, toast, rice, and applesauce. Avoid spicy, greasy or fried foods and dairy containing foods. Even if you aren't feeling hungry due to lack of smell or taste, it is important to try to take in some food when you are able. After drinking and eating, rest in an upright position for up to two hours as needed to help decrease nauseous feelings. Try closing your eyes, avoid moving and watching TV. Avoid strong odors that can make you feel more nauseated. When to seek emergency medical attention Look for emergency warning signs for COVID-19. If having any of these symptoms, seek emergency medical care immediately: Trouble breathing Persistent pain or pressure in the chest New confusion Inability to wake or stay awake Bluish lips or face *This list is not all possible symptoms. Please call your medical provider for any other symptoms that are severe or concerning to you. FACT SHEET FOR PATIENTS, PARENTS, AND CAREGIVERS EMERGENCY USE AUTHORIZATION (EUA) OF PAXLOVID FOR CORONAVIRUS DISEASE 2019 (COVID-19) You are being given this Fact Sheet because your healthcare provider believes it is necessary to provide you with PAXLOVID for the treatment of oksv-yd-merhoyhs coronavirus disease (COVID-19) caused by the SARS-CoV-2 virus. This Fact Sheet contains information to help you understand the risks and benefits of taking the PAXLOVID you have received or may receive. The [place]. Food and Drug Administration (FDA) has issued an Emergency Use Authorization (EUA) to make PAXLOVID available during the COVID-19 pandemic (for more details about an EUA please see What is an Emergency Use Authorization? at the end of this document). PAXLOVID is not an FDA-approved medicine in the [place]. Read this Fact Sheet for information about PAXLOVID. Talk to your healthcare provider about your options or if you have any questions. It is your choice to take PAXLOVID. What is COVID-19? COVID-19 is caused by a virus called a coronavirus. You can get COVID-19 through close contact with another person who has the virus. COVID-19 illnesses have ranged from very tiss-ok-kcpiqe, including illness resulting in . While information so far suggests that most COVID-19 illness is mild, serious illness can happen and may cause some of your other medical conditions to become worse. Older people and people of all ages with severe, long lasting (chronic) medical conditions like heart disease, lung disease, and diabetes, for example seem to be at higher risk of being hospitalized for COVID-19. What is PAXLOVID? PAXLOVID is an investigational medicine used to treat xbgs-fb-abwbndzf COVID-19 in adults and children [12 years of age and older weighing at least 88 pounds (40 kg)] with positive results of direct SARS-CoV-2 viral testing, and who are at high risk for progression to severe COVID-19, including hospitalization or . PAXLOVID is investigational because it is still being studied. There is limited information about the safety and effectiveness of using PAXLOVID to treat people with utlk-pw-qjwonjqr COVID-19. The FDA has authorized the emergency use of PAXLOVID for the treatment of btrb-bn-zeqfncio COVID-19 in adults and children [12 years of age and older weighing at least 88 pounds (40 kg)] with a positive test for the virus that causes COVID-19, and who are at high risk for progression to severe COVID-19, including hospitalization or , under an EUA. 1 Revised: 06 January 2022 What should I tell my healthcare provider before I take PAXLOVID? Tell your healthcare provider if you: Have any allergies Have liver or kidney disease Are or plan to become Are a child Have any serious illnesses Tell your healthcare provider about all the medicines you take, including prescription and swzo-fkn-rqhcijb medicines, vitamins, and herbal supplements. Some medicines may interact with PAXLOVID and may cause serious side effects. Keep a list of your medicines to show your healthcare provider and pharmacist when you get a new medicine. You can ask your healthcare provider or pharmacist for a list of medicines that interact with PAXLOVID. Do not start taking a new medicine without telling your healthcare provider. Your healthcare provider can tell you if it is safe to take PAXLOVID with other medicines. Tell your healthcare provider if you are taking combined hormonal contraceptive. PAXLOVID may affect how your control pills work. Females who are able to become should use another effective alternative form of contraception or an additional barrier method of contraception. Talk to your healthcare provider if you have any questions about contraceptive methods that might be right for you. How do I take PAXLOVID? PAXLOVID consists of 2 medicines: nirmatrelvir and ritonavir. Take 2 pink tablets of nirmatrelvir with 1 white tablet of ritonavir by mouth 2 times each day (in the morning and in the evening) for 5 days. For each dose, take all 3 tablets at the same time. If you have kidney disease, talk to your healthcare provider. You may need a different dose. Swallow the tablets whole. Do not chew, break, or crush the tablets. Take PAXLOVID with or without food. Do not stop taking PAXLOVID without talking to your healthcare provider, even if you feel better. If you miss a dose of PAXLOVID within 8 hours of the time it is usually taken, take it as soon as you remember. If you miss a dose by more than 8 hours, skip the missed dose and take the next dose at your regular time. Do not take 2 doses of PAXLOVID at the same time. If you take too much PAXLOVID, call your healthcare provider or go to the nearest hospital emergency room right away. If you are taking a ritonavir-or cobicistat-containing medicine to treat hepatitis C or Human Immunodeficiency Virus (HIV), you should continue to take your medicine as prescribed by your healthcare provider. Talk to your healthcare provider if you do not feel better or if you feel worse after 5 days. Who should generally not take PAXLOVID? Do not take PAXLOVID if: You are allergic to nirmatrelvir, ritonavir, or any of the ingredients in PAXLOVID You are taking any of the following medicines: Alfuzosin Pethidine, propoxyphene Ranolazine Amiodarone, dronedarone, flecainide, propafenone, quinidine Colchicine Lurasidone, pimozide, clozapine Dihydroergotamine, ergotamine, methylergonovine Lovastatin, simvastatin Sildenafil (Revatio ) for pulmonary arterial hypertension (PAH) Triazolam, oral midazolam Apalutamide Carbamazepine, phenobarbital, phenytoin Rifampin Medley s Wort (hypericum perforatum) Taking PAXLOVID with these medicines may cause serious or life-threatening side effects or affect how PAXLOVID works. These are not the only medicines that may cause serious side effects if taken with PAXLOVID. PAXLOVID may increase or decrease the levels of multiple other medicines. It is very important to tell your healthcare provider about all of the medicines you are taking because additional laboratory tests or changes in the dose of your other medicines may be necessary while you are taking PAXLOVID. Your healthcare provider may also tell you about specific symptoms to watch out for that may indicate that you need to stop or decrease the dose of some of your other medicines. What are the important possible side effects of PAXLOVID? Possible side effects of PAXLOVID are: Allergic Reactions. Allergic reactions can happen in people taking PAXLOVID, even after only 1 dose. Stop taking PAXLOVID and call your healthcare provider right away if you get any of the following symptoms of an allergic reaction: hives trouble swallowing or breathing swelling of the mouth, lips, or face throat tightness hoarseness skin rash Liver Problems. Tell your healthcare provider right away if you have any of these signs and symptoms of liver problems: loss of appetite, yellowing of your skin and the whites of eyes (jaundice), dark-colored urine, pale colored stools and itchy skin, stomach area (abdominal) pain. Resistance to HIV Medicines. If you have untreated HIV infection, PAXLOVID may lead to some HIV medicines not working as well in the future. Other possible side effects include: altered sense of taste diarrhea high blood pressure muscle aches These are not all the possible side effects of PAXLOVID. Not many people have taken PAXLOVID. Serious and unexpected side effects may happen. PAXLOVID is still being studied, so it is possible that all of the risks are not known at this time. What other treatment choices are there? Veklury (remdesivir) is FDA-approved for the treatment of tqky-mc-vnyfktzy COVID-19 in certain adults and children. Talk with your doctor to see if Veklury is appropriate for you. Like PAXLOVID, FDA may also allow for the emergency use of other medicines to treat people with COVID-19. Go to https://www.fda.gov/emergency-pre paredness-andresponse/mcm-legal-r hesccftdk-zxp-xvxozt-framework/em bjsfpgf-zid-kfubpbotrhyuy for information on the emergency use of other medicines that are authorized by FDA to treat people with COVID-19. Your healthcare provider may talk with you about clinical trials for which you may be eligible. It is your choice to be treated or not to be treated with PAXLOVID. Should you decide not to receive it or for your child not to receive it, it will not change your standard medical care. What if I am or ? There is genetic technologist treating women or mothers with PAXLOVID. For a mother and unborn baby, the benefit of taking PAXLOVID may be greater than the risk from the treatment. If you are , discuss your options and specific situation with your healthcare provider. It is recommended that you use effective barrier contraception or do not have sexual activity while taking PAXLOVID. If you are , discuss your options and specific situation with your healthcare provider. How do I report side effects with PAXLOVID? Contact your healthcare provider if you have any side effects that bother you or do not go away. Report side effects to [employer] at www.fda.gov/medwatch or call 6-819-QYP9695 or you can report side effects to [employer] at the contact information provided below. Website Fax number Telephone number [facility]to[employer] How should I store PAXLOVID? Store PAXLOVID tablets at room temperature, between 68?F to 77?F (20?C to 25?C). How can I learn more about COVID-19? Ask your healthcare provider. Visit https://www.cdc.gov/COVID19. Contact your local or state public health department. What is an Emergency Use Authorization (EUA)? The [place] FDA has made PAXLOVID available under an emergency access mechanism called an Emergency Use Authorization (EUA). The EUA is supported by a Stripper Machine Operator of Health and Human Service (HHS) declaration that circumstances exist to justify the emergency use of drugs and biological products during the COVID-19 pandemic. PAXLOVID for the treatment of plxj-za-hlusnwfx COVID-19 in adults and children [12 years of age and older weighing at least 88 pounds (40 kg)] with positive results of direct SARS-CoV-2 viral testing, and who are at high risk for progression to severe COVID-19, including hospitalization or , has not undergone the same type of review as an FDA-approved product. In issuing an EUA under the COVID-19 public health emergency, the FDA has determined, among other things, that based on the total amount of scientific evidence available including data from adequate and well-controlled clinical trials, if available, it is reasonable to believe that the product may be effective for diagnosing, treating, or preventing COVID-19, or a serious or life-threatening disease or condition caused by COVID-19; that the known and potential benefits of the product, when used to diagnose, treat, or prevent such disease or condition, outweigh the known and potential risks of such product; and that there are no adequate, approved, and available alternatives. All of these criteria must be met to allow for the product to be used in the treatment of patients during the COVID-19 pandemic. The EUA for PAXLOVID is in effect for the duration of the COVID-19 declaration justifying emergency use of this product, unless terminated or revoked (after which the products may no longer be used under the EUA). Additional Information For general questions, visit the website or call the telephone number provided below. Website Telephone number [employer] (8-402-Y39-PACK) You can also go to www.[employer] or call for more information. Pfizer Distributed by [employer] [place] [address] [id number] Revised: 06 January 2022 documented in this encounter [facility] 08-31-2022 History of Present illness Narrative Telemedicine Follow-up for COVID-19 Infection MyChart video visit was used for evaluation of this patient. Location of patient: [place] PCP: DO MESSI Hernandez Cam[place] is a 47 year old female who was diagnosed with COVID-19 on 10/28/2021 08/30/2022 with symptoms starting on No data recorded Since diagnosis, symptoms are stable. Seen in urgent care yesterday, Covid19 positive. Symptoms Sunday. Persistent symptoms include: Fever (?100.4F): Yes 99.7-100.2 or Chills: Yes Cough: Yes, not productive Shortness of breath: Yes or Difficulty breathing: No Fatigue: Yes Muscle aches: Yes, jaw shoulders hips Headache: Yes frontal Loss of smell or taste: No Sore throat: Yes Nasal congestion: Yes or Rhinorrhea: Yes Nausea: Yes or Vomiting: No Diarrhea: No OTC meds/remedies that patient has tried: NSAIDs and pseudoephedrine. She reports that she has never smoked. She has never used smokeless tobacco. OBJECTIVE VIDEO EXAM (if available) GENERAL: Ill-appearing, but non-toxic HEENT: no conjunctival injection, pupils equal and moist mucous membranes PULMONARY: breathing comfortably on room air , coughing, and no wheezing noted ASSESSMENT/PLAN (U07.1) COVID-19 virus infection (primary encounter diagnosis) - Symptoms stable or improving, continue self monitoring This patient encounter involved the screening or treatment of novel coronavirus infection (COVID-19). Nirmatrelvir/Ritonavir (Paxlovid) Eligibility and Patient Discussion [facility] Formulary Restriction Criteria: Adult outpatients 18 years and older with ALL of the following: [x] Patient has positive SARS-COV-2 viral test (PCR or antigen test) during current illness [x] Patient has symptoms for 5 days or less [x] Not requiring hospitalization at any time for management of COVID-19 [x] Not requiring supplemental oxygen or a change in baseline supplemental oxygen [x] Not utilized for pre-exposure or post-exposure prophylaxis for prevention of COVID-19 [x] Patient does not have severe renal impairment (eGFR < 30 mL/min) or severe hepatic impairment (Child-Romero Class C) [] Meeting at least one of the criteria for high risk of progression to severe COVID-19: [] Age over 65 years [] Cancer [] Chronic kidney disease [] Chronic liver disease [] Chronic lung diseases, including cystic fibrosis [] Dementia or other neurological conditions [] Diabetes (type 1 or type 2) [] Disabilities, including Down syndrome and neurodevelopmental disorders [] Heart conditions [] HIV infection [] Immunocompromised state [] Mental health conditions [] Medical related technological dependence (tracheostomy, gastrostomy, or positive pressure ventilation (not related to COVID) [x] Overweight and obesity (BMI greater or equal to 25 for adults) [] Physical inactivity [] [] Sickle cell disease or thalassemia [] Smoking, current or former [] Solid organ or blood stem cell transplant [] Stroke or cerebrovascular disease [] Substance use disorders [] Tuberculosis [] People from racial and ethnic minority groups Criteria above are met: Yes Date of Positive Test:07/30/2022 Date of Symptom Onset: 07/28/2022 Patient received COVID vaccine: Yes Drug-Drug interactions reviewed: Yes. Drug interactions were identified and the following actions were taken To hold trazodone, fioricet and flonase while taking; may resume when complete. I have discussed the use of the investigational therapeutic, nirmatrelvir/ritonavir, for the treatment of mild to moderate COVID-19 and its use under Emergency Use Authorization with the patient. The patient was informed that nirmatrelvir/ritonavir is not an FDA approved drug and that it is authorized for use under this Emergency Use Authorization. The patient was also informed of the significant known benefits and potential risks of nirmatrelvir/ritonavir, and the extent to which such potential risks and benefits are unknown. The patient was informed that there is mandatory reporting of all medication errors and serious adverse events potentially related to nirmatrelvir/ritonavir treatment within 7 calendar days from the onset of the event and that events up to 28 days after completion of therapy need to be reported. The discussion included alternatives to receiving nirmatrelvir/ritonavir, including clinical trials, and potential the risks and benefits of those alternatives. The patient was provided electronically with the Fact Sheet for Patients, Parents and Caregivers . The patient was also instructed that in addition to the treatment with nirmatrelvir/ritonavir, he/she should continue to self-isolate and use infection control measures (e.g., wear mask, isolate, social distance, avoid sharing personal items, clean and disinfect high touch surfaces, and frequent handwashing) according to CDC guidelines. The patient stated understanding and gave verbal consent to proceeding with nirmatrelvir/ritonavir treatment. Mae Fiore APRN.CNS August 31, 2022 1:46 PM 20 min in visit documented in this encounter [facility] 08-31-2022 Miscellaneous Notes Patient calls to request Paxlovid and is upset that EC wouldn't prescribe. Patient reports that symptoms started on Sunday August 28, 2022. Patient requesting VV today to discuss. Symptoms include cough, sore throat, fever, nasal congestion, headache, shortness of breath with exertion, and body aches/fatigue. VV scheduled. Guera Cast RN documented in this encounter [facility] 08-16-2022 History of Present illness Narrative Chief Complaint Patient presents with: Allergy Injection HPI Saad Villafana is a 47 year old female who presents here today for Above Complaints.. Today: Allergies have flared up. Sinus congestion, itchy eyes, PND. Typically gets steroid injections a couple times per year and these help well for her chronic sx. Past medical history, appointments, medications, allergies reviewed. Previous Medical History PAST MEDICAL HISTORY Diagnosis Date Anxiety Depression Low vitamin D level 07/30/2018 Migraines Previous Surgical History PAST SURGICAL HISTORY Procedure Laterality Date DELIVERY ONLY 2007 , low transverse CONIZATION CERVIX W/WO D&C RPR ELTRD EXC 1994 LEEP-Cervix KNEE ARTHROSCOPY 1985 Left SEPTOPLASTY/SUBMUCOUS RESECJ W/WO CARTILAGE GRF 2011 Family History FAMILY HISTORY Problem Relation Age of Onset Emphysema Paternal Grandfather Patient Allergies ALLERGIES Allergen Reactions Adhesive Rash, Other: See Comments Rash like blisters Amoxicillin Rash Latex Other: See Comments Blistering rash Seasonal Allergies Other: See Comments Nasal congestion, itchy eyes Current Medications Current Outpatient Medications on File Prior to Visit Medication Sig predniSONE (DELTASONE) 10 mg tablet Take 1 tablet by mouth once daily. As needed for joint pain flare up GABAPENTIN, BULK, MISC escitalopram oxalate (LEXAPRO) 20 mg tablet Take 1 tablet by mouth once daily. METHOTREXATE ORAL Take by mouth. traZODone (DESYREL) 50 mg tablet Take 2 tablets by mouth daily at bedtime. fluticasone (FLONASE) 50 mcg/actuation nasal spray Use 2 Sprays in each nostril once daily. Rinse mouth after use. hydrocortisone (ANUSOL-HC) 2.5 % rectal cream by RECTAL route twice daily as needed (external hemorrhoids). External hemorrhoids hydroxychloroquine (PLAQUENIL) 200 mg tablet Take 200 mg by mouth twice daily. No current facility-administered medications on file prior to visit. Social History Social History Tobacco Use Smoking status: Never Smokeless tobacco: Never Substance Use Topics Alcohol use: Yes Comment: Occasionally Drug use: No Review of Symptoms REVIEW OF SYSTEMS See HPI, otherwise negative EXAM: BP 126/84 (BP Site: Left Arm, BP Position: Sitting, BP Cuff Size: Regular Adult) Pulse 108 Wt 102.2 kg (225 lb 6.4 oz) LMP 01/23/2022 (Approximate) SpO2 95% BMI 36.38 kg/m General Appearance: Well appearing, alert, in no acute distress, well-hydrated, well nourished.. Eyes: Anicteric sclera. Pupils are equally round and reactive to light. Extraocular movements are intact. . Ears: External ears normal, canals clear. Nose/Sinuses: Nares normal, septum midline, mucosa normal, no drainage or sinus tenderness. Oropharynx: Lips, mucosa, and tongue normal, teeth and gums normal, oropharynx normal. Lungs: Lungs clear to auscultation. No wheezing, rhonchi, rales.. Heart: RRR without murmur, gallop, or rubs. No ectopy. Health Maintenance List HEPATITIS B(1 of 3 - 3-dose series) Never done PNEUMOCOCCAL(1 - PCV) Never done SHINGRIX VACCINE(1 of 2) Never done COLORECTAL CANCER SCREENING Never done COVID-19 VACCINE(4 - Booster for Pfizer series) due on 12/15/2021 MAMMOGRAM due on 12/27/2021 INFLUENZA(1) due on 06/22/2022 ANNUAL PCP TEAM CHRONIC DISEASE VISIT due on 08/16/2023 PAP TESTING due on 01/18/2024 HPV TESTING due on 01/18/2024 DIABETES SCREEN due on 04/01/2025 LIPID SCREEN due on 04/01/2027 DTAP,TDAP,TD(3 - Td or Tdap) due on 03/07/2032 HEPATITIS C SCREENING Completed HIV SCREENING Completed Data reviewed Previous records, office notes ASSESSMENT/PLAN: 1. Seasonal allergic rhinitis due to other allergic trigger - ICD9: 477.8, ICD10: J30.89 (primary diagnosis) Continue chronic supportive care. - TRIAMCINOLONE ACETONIDE 40 MG/ML SUSPENSION FOR INJECTION 2. Graves disease - ICD9: 242.00, ICD10: E05.00 Medication continues working well, tolerating well, refill given. - METHIMAZOLE 5 MG TABLET 3. Migraine variant - ICD9: 346.20, ICD10: G43.809 Medication continues working well, tolerating well, refill given. - TOPIRAMATE 200 MG TABLET - RIZATRIPTAN 10 MG TABLET - [id number]-JAPBTEXR 50 MG-325 MG-40 MG TABLET 4. Dysthymia - ICD9: 300.4, ICD10: F34.1 Medication continues working well, tolerating well, refill given. - BUPROPION XL 150 MG TAB 5. Acute right-sided low back pain with right-sided sciatica - ICD9: 724.2, 724.3, ICD10: M54.41 Medication continues working well, tolerating well, refill given. - CYCLOBENZAPRINE 10 MG TABLET 6. Dizziness - ICD9: 780.4, ICD10: R42 Medication continues working well, tolerating well, refill given. - MECLIZINE 25 MG TABLET Vicenet Lakhani APRN.CNP documented in this encounter [facility] 08-14-2022 Miscellaneous Notes Scheduled 08/16 with Vicente. Ashly Ponce Please have patient make appointment to have this given and assessed. Thank you, Ирина Roche APRN.CNP Images from the original note were not included. Please see pt Miscota message and place order for kenalog if agreeable Nisreen Healy Ma documented in this encounter [facility] 08-14-2022 Miscellaneous Notes See TE 08/14 Nisreen Healy Ma documented in this encounter [facility] 07-22-2022 Instructions Chelsie Tenorio APRN.IGNACIO - 07/22/2022 10:45 AM EDT Images from the original note were not included. Urinary Problem-When to Seek Help? Symptoms of a urinary problem may lead to a bladder infection. Women are at greater risk of a urinary tract infection than are men. Most urinary tract infections in women are caused by bacteria and involve the lower urinary tract including the bladder and urethra. Symptoms: Pain or burning when passing urine, urgency, frequency, blood in the urine, difficult emptying your bladder, and lower abdominal fullness or pressure. Common Causes: Sexual intercourse, menopause, constipation, uncontrolled diabetes, dehydration and feminine products such as tampons, and kidney stones. When to Get Help: Seek medical attention if you get frequent bladder infections, urinary concerns such as leakage, blood in the urine or frequent need to urinate. You may be recommended to get help from a specialist, such as a urologist. Diagnosis & Treatment: Lab testing may include: urinalysis, and urine culture that can be collected in the lab or walk-in clinic. Most bladder infections can easily be treated. A physician, nurse practitioner or physician registrar assistant may treat with a short course of an antibiotic. Delaying treatment can lead to worsening symptoms, like a kidney infection. Self-Care: Avoid a full bladder, bubble baths, bath oils, food and beverages that may irritate the bladder such as caffeine. Avoid spermicide foam and diaphragms Void before and after sexual intercourse Wipe front to back after using the bathroom. Stay hydrated Stop Smoking Follow-up Care: Follow up testing is not needed in healthy young women if symptoms resolve. documented in this encounter [facility] 07-22-2022 History of Present illness Narrative Telemedicine Visit - Distance Health Virtual Visit Note Patient seen on [employer] platform. Location of patient: [place] History of Present Illness Saad Villafana is a 47 year old old female with a history of UTI symptoms for 2-3 days. Urinary symptoms ROS: Positive for Dysuria, Increase in frequency of urination, and Urgency, Negative for Fevers, Vomiting, Diarrhea, Abdominal pain , Back/Flank pain, and Blood in urine Chance of : No Any self-treatment attempted: No Number of previous UTI's in last 6 months:0 Number of previous UTI's in last 12 months: 0 Aggravating Factors: Voiding Alleviating Factors: None PAST MEDICAL HISTORY Diagnosis Date Anxiety Depression Low vitamin D level 07/30/2018 Migraines PAST SURGICAL HISTORY Procedure Laterality Date DELIVERY ONLY 2007 , low transverse CONIZATION CERVIX W/WO D&C RPR ELTRD EXC 1994 LEEP-Cervix KNEE ARTHROSCOPY 1985 Left SEPTOPLASTY/SUBMUCOUS RESECJ W/WO CARTILAGE GRF 2012 FAMILY HISTORY Problem Relation Age of Onset Emphysema Paternal Grandfather Social History Tobacco Use Smoking status: Never Smokeless tobacco: Never Substance Use Topics Alcohol use: Yes Comment: Occasionally Drug use: No ALLERGIES Allergen Reactions Adhesive Rash, Other: See Comments Rash like blisters Amoxicillin Rash Latex Other: See Comments Blistering rash Seasonal Allergies Other: See Comments Nasal congestion, itchy eyes Current Outpatient Medications Medication Sig nitrofurantoin monohydrate and macrocrystal (MACROBID) 100 mg capsule Take 1 capsule by mouth twice daily for 5 days. gabapentin (NEURONTIN) 300 mg capsule Take 1 capsule in the morning and 1 capsule at bedtime for 3 days. If tolerated, okay to increase to 1 in the morning, 1 at lunch and 1 at bedtime. buPROPion XL (WELLBUTRIN XL) 150 mg 24 hr tablet Take 1 tablet by mouth once daily. topiramate (TOPAMAX) 200 mg tablet Take 1 tablet by mouth once daily. predniSONE (DELTASONE) 10 mg tablet Take 1 tablet by mouth once daily. As needed for joint pain flare up acetaminophen 325 mg-caffeine 40 mg-butalbital 50 mg (FIORICET) per tablet Take 1 tablet by mouth once daily as needed for headache (migraine headache). rizatriptan (MAXALT) 10 mg tablet Take 1 tablet by mouth at first sign of headache/migraine. May take again in 2 hours if necessary. GABAPENTIN, BULK, MISC methIMAzole (TAPAZOLE) 5 mg tablet Take 0.5 tablets by mouth every other day. cyclobenzaprine (FLEXERIL) 10 mg tablet Take 1 tablet by mouth three times daily as needed for muscle spasm. escitalopram oxalate (LEXAPRO) 20 mg tablet Take 1 tablet by mouth once daily. METHOTREXATE ORAL Take by mouth. meclizine (ANTIVERT) 25 mg tab Take 1 tablet by mouth three times daily. traZODone (DESYREL) 50 mg tablet Take 2 tablets by mouth daily at bedtime. meloxicam (MOBIC) 15 mg tablet Take 1 tablet by mouth once daily. Take with food. fluticasone (FLONASE) 50 mcg/actuation nasal spray Use 2 Sprays in each nostril once daily. Rinse mouth after use. hydrocortisone (ANUSOL-HC) 2.5 % rectal cream by RECTAL route twice daily as needed (external hemorrhoids). External hemorrhoids hydroxychloroquine (PLAQUENIL) 200 mg tablet Take 200 mg by mouth twice daily. No current facility-administered medications for this visit. Video Exam (Examination performed via Video enabled technology) General Appearance: 47 year old yo female in NAD; not ill or toxic appearing Abdomen: non-tender by self palpation CVA Tenderness: non-tender bilaterally by self palpation ASSESSMENT/PLAN: 1. Acute cystitis without hematuria - ICD9: 595.0, ICD10: N30.00 - Begin empiric treatment with Macrobid as prescribed and discussed - Recommend increased oral intake of clear liquids - Advised on wipe mamef-iz-wauy and always void after intercourse - Advised to seek immediate medical evaluation if any bright red blood filling toilet bowl, fevers, severe pain - Follow up with PCP (or available in-person care) in 3-5 days if no improvement - Red flags discussed for in person care and follow up - All questions answered Chelsie Tenorio APRN.CNP If you let us know who your primary care provider is, we will send them a notification of today s visit through our electronic medical records system. Since not all providers have access to our notifications, we strongly encourage you to share the following record of today s visit with your primary care provider at your next visit. This will help in providing you the best care. If you do not have an established Primary Care physician and would like to continue care with a [facility] Primary Care physician, please ask your provider to place a Establish Primary Care order. Use [facility] to manage your care, wherever you are, 14/05, on your mobile device or computer. [facility] connects you to [employer] so you can access all your health information in one place and also schedule and request virtual appointments with primary care providers. documented in this encounter [facility] 07-05-2022 Instructions Gil Fragoso APRN.IGNACIO - 07/05/2022 12:20 PM EDT How to Manage Common Symptoms Associated with COVID for Adults Fever- Fever is a temperature over 100.4 F and can occur when the body is fighting an infection. To help treat a fever: Drink plenty of fluids and stay well hydrated. Eat small amounts of easy to digest food. Rest. Your body needs rest to recover, but getting up and moving around the house frequently is a good idea. You should try to continue doing your normal daily activities (bathing, toileting, grooming, cooking), though you will probably feel tired, and need to rest often. Avoid any heavy activity or exercise, as this will increase your body temperature. Dress in light clothing and stay covered in a light sheet. Keep the room temperature cool. Take a slightly warm (not cold or cool) bath, or apply damp washcloths to the forehead and wrists. Cough- Cough is a common symptom associated with COVID and can be bothersome. To help treat a cough: Stay well hydrated. Try warm water or tea with lemon and/or honey to help soothe the cough. Use a humidifier to add moisture to the air. Try a product with menthol, like a cough drop or a rub for your chest such as Vicks, which can help reduce cough. Try cough drops. Avoid smoking and other strong odors or perfumes. Try breathing exercises to keep your lungs open and clear. Take a big deep breath through your nose and hold for 5 seconds before slowly releasing. Repeat frequently, while you are awake. Congestion- Runny nose or nasal congestion can occur with COVID. Treatment can help relieve symptoms: Try OTC nasal saline spray, or nasal saline rinse to relieve mucus congestion. Nasal strips can help keep nasal passages open, to increase airflow. Elevating your head with an extra pillow in bed can help reduce congestion. Using a humidifier can increase moisture in the air, and make breathing easier. Sore Throat- Another common symptom with COVID, can be managed at home by: Stay well hydrated. Gargle with salt water - mix teaspoon salt with 1 cup of warm water and gargle. This helps to loosen mucus in the back of the throat and may reduce discomfort. Try ice chips, popsicles or lozenges to soothe the throat. Nausea/Vomiting/Diarrhea- These are common symptoms, and staying hydrated is most important. If you are nauseous or vomiting, start with small sips of water every 10-15 minutes and increase as tolerated. You can try sucking an ice cube too. If tolerating, you can try pedialyte or Gatorade, or flat sprite or stew-gurinder. Start slowly and increase as you are able to. Instead of meals, try smaller, more frequent snacks. Try eating bland foods like crackers, toast, rice, and applesauce. Avoid spicy, greasy or fried foods and dairy containing foods. Even if you aren't feeling hungry due to lack of smell or taste, it is important to try to take in some food when you are able. After drinking and eating, rest in an upright position for up to two hours as needed to help decrease nauseous feelings. Try closing your eyes, avoid moving and watching TV. Avoid strong odors that can make you feel more nauseated. When to seek emergency medical attention Look for emergency warning signs for COVID-19. If having any of these symptoms, seek emergency medical care immediately: Trouble breathing Persistent pain or pressure in the chest New confusion Inability to wake or stay awake Bluish lips or face *This list is not all possible symptoms. Please call your medical provider for any other symptoms that are severe or concerning to you. documented in this encounter [facility] 07-05-2022 History of Present illness Narrative Subjective HPI HPI Saad Villafana is a 47 year old female who presents today for CC of sinus pressure, cough, ear pressure, st. This started 1 day ago. Has tried otc medication for relief. Symptoms are worsened by nothing. Risk factors sick exposures at work. Hx of bad nasal allergies and sinus infections. . .Patient presents with: Sinus Problem: nasal congestion, drainage, cough, ear pressure and sore throat x 1 day PAST MEDICAL HISTORY Diagnosis Date Anxiety Depression Low vitamin D level 07/30/2018 Migraines PAST SURGICAL HISTORY Procedure Laterality Date DELIVERY ONLY 2007 , low transverse CONIZATION CERVIX W/WO D&C RPR ELTRD EXC 1994 LEEP-Cervix KNEE ARTHROSCOPY 1985 Left SEPTOPLASTY/SUBMUCOUS RESECJ W/WO CARTILAGE GRF 2011 ALLERGIES Adhesive, Amoxicillin, Latex, and Seasonal Allergies MEDICATIONS gabapentin (NEURONTIN) 300 mg capsule Take 1 capsule in the morning and 1 capsule at bedtime for 3 days. If tolerated, okay to increase to 1 in the morning, 1 at lunch and 1 at bedtime. buPROPion XL (WELLBUTRIN XL) 150 mg 24 hr tablet Take 1 tablet by mouth once daily. topiramate (TOPAMAX) 200 mg tablet Take 1 tablet by mouth once daily. predniSONE (DELTASONE) 10 mg tablet Take 1 tablet by mouth once daily. As needed for joint pain flare up acetaminophen 325 mg-caffeine 40 mg-butalbital 50 mg (FIORICET) per tablet Take 1 tablet by mouth once daily as needed for headache (migraine headache). rizatriptan (MAXALT) 10 mg tablet Take 1 tablet by mouth at first sign of headache/migraine. May take again in 2 hours if necessary. GABAPENTIN, BULK, MISC methIMAzole (TAPAZOLE) 5 mg tablet Take 0.5 tablets by mouth every other day. cyclobenzaprine (FLEXERIL) 10 mg tablet Take 1 tablet by mouth three times daily as needed for muscle spasm. escitalopram oxalate (LEXAPRO) 20 mg tablet Take 1 tablet by mouth once daily. METHOTREXATE ORAL Take by mouth. meclizine (ANTIVERT) 25 mg tab Take 1 tablet by mouth three times daily. traZODone (DESYREL) 50 mg tablet Take 2 tablets by mouth daily at bedtime. meloxicam (MOBIC) 15 mg tablet Take 1 tablet by mouth once daily. Take with food. fluticasone (FLONASE) 50 mcg/actuation nasal spray Use 2 Sprays in each nostril once daily. Rinse mouth after use. hydrocortisone (ANUSOL-HC) 2.5 % rectal cream by RECTAL route twice daily as needed (external hemorrhoids). External hemorrhoids hydroxychloroquine (PLAQUENIL) 200 mg tablet Take 200 mg by mouth twice daily. FAMILY HISTORY Problem Relation Age of Onset Emphysema Paternal Grandfather Social History Tobacco Use Smoking status: Never Smokeless tobacco: Never Substance Use Topics Alcohol use: Yes Comment: Occasionally Drug use: No ROS Objective Blood pressure 124/74, pulse 116, temperature 37.4 C (99.3 F), resp. rate 18, weight 96.6 kg (213 lb), last menstrual period 01/23/2022, SpO2 97 %. Physical Exam Constitutional: General: She is not in acute distress. Appearance: She is not toxic-appearing or diaphoretic. HENT: Head: Normocephalic and atraumatic. Right Ear: Hearing, tympanic membrane, ear canal and external ear normal. Left Ear: Hearing, tympanic membrane, ear canal and external ear normal. Nose: Nose normal. Mouth/Throat: Pharynx: Uvula midline. No pharyngeal swelling, oropharyngeal exudate, posterior oropharyngeal erythema or uvula swelling. Eyes: General: Lids are normal. No scleral icterus. Right eye: No discharge. Left eye: No discharge. Conjunctiva/sclera: Conjunctivae normal. Pupils: Pupils are equal, round, and reactive to light. Neck: Trachea: Trachea normal. Cardiovascular: Rate and Rhythm: Normal rate and regular rhythm. Heart sounds: Normal heart sounds. Pulmonary: Effort: Pulmonary effort is normal. Breath sounds: Normal breath sounds. Musculoskeletal: Cervical back: Normal range of motion and neck supple. Lymphadenopathy: Cervical: No cervical adenopathy. Right cervical: No superficial cervical adenopathy. Left cervical: No superficial cervical adenopathy. Skin: Findings: No rash. Neurological: Mental Status: She is alert and oriented to person, place, and time. ASSESSMENT/PLAN: 1. URI with cough and congestion - ICD9: 465.9, ICD10: J06.9 (primary diagnosis) - Discussed viral etiology and rationale for treatment. - Symptomatic treatment with prn analgesia - Supportive care with fluids and rest - Follow up in 3-5 days if symptoms persist or sooner if worsening of symptoms - COVID WITH FLUA+B, ROUTINE 2. Sinus pressure - ICD9: 478.19, ICD10: J34.89 Hold ATB, if s/s persist/worsen after 5 days fill/take atb - Supportive care with plenty of fluids, rest, and analgesia prn. - Follow up in 7days if symptoms persist or worsen. - DOXYCYCLINE MONOHYDRATE 100 MG TABLET Agrees to plan Declines avs Gil Fragoso APRN.[employer] documented in this encounter [facility] 06-27-2022 Miscellaneous Notes Neuro SPINE CARE COORDINATION QUICK NOTE [facility] 05-12-22 for CHIEF COMPLAINT: Low back pain, left leg pain Refill request to [facility] documented in this encounter [facility] 06-27-2022 Miscellaneous Notes Last office visit: 03/29/22 F/u scheduled: none Albina Garcia Ma documented in this encounter [facility] 05-18-2022 Miscellaneous Notes Patient phones requesting refills as follows: Pending Prescriptions Disp Refills BUPROPION XL 150 MG TAB 90 tablet 0 Sig: Take 1 tablet by mouth once daily. TAVIA: No RAFAEL-03/29/22 Labs-04/01/22 NOV-none med filled 02/10/22 Please review and advise. Yin Ryan LPN documented in this encounter [facility] 05-18-2022 Miscellaneous Notes Patient phones requesting refills as follows: Pending Prescriptions Disp Refills PREDNISONE 10 MG TABLET 30 tablet 1 Sig: Take 1 tablet by mouth once daily. As needed for joint pain flare up TAVIA: No RAFAEL-03/29/22 Labs-04/01/22 NOV-none med filled 12/24/19 Please review and advise. Yin Ryan LPN documented in this encounter [facility] 05-12-2022 Instructions Natasha Garcia PA-C - 05/12/2022 12:09 PM EDT Trial of gabapentin 300 mg titration - Take 1 capsule in the morning and 1 capsule at bedtime Try this for 3 days - if tolerated, you may increase further Take 1 capsule in the morning, 1 at lunch and 1 at bedtime Consider a left L4-L5 transforaminal epidural steroid injection with aspiration of cyst. Lumbar flexion / extension xrays - at your earliest convenience. I will reach out to you upon review of xrays - please let me know if any questions pop up in the mean-time. Thank you, Natasha Garcia PA-C [phone] documented in this encounter [facility] 05-12-2022 History of Present illness Narrative Images from the original note were not included. SPINE SURGERY OUTPATIENT CONSULT SERVICE DATE: 05/12/2022 PCP: Lawrence Howard DO REFERRING PROVIDER: Lawrence Howard [phone] [facility] [id number] Consult requested for an opinion regarding the evaluation and treatment of lumbar radiculopathy. My final impression and recommendations will be communicated back to the requesting physician by way of the shared medical record or letter via US mail. SUBJECTIVE Saad Villafana is a 47 year old female presenting with spouse. CHIEF COMPLAINT: Low back pain, left leg pain HISTORY OF PRESENT ILLNESS Love Villafana is a 47 year old female presenting today with chronic low back pain > left leg pain (L5), which has worsened over the last 1 year. Notes subjective left leg weakness. Pain is aggravated by walking without ability to find position of relief. Patient is currently on MTX for arthritis. CMT: -Physical Therapy (04/11/2022, 04/27/2022) -Home Exercise Program (Daily) -NSAIDs (Ibuprofen) -Muscle Relaxants (Flexeril) -Gabapentin 100 mg (1 in the morning, 2 at bedtime) PRECIPITATING EVENT: None DURATION OF SYMPTOMS: Greater Than 1 Year PAIN EVALUATION 05/12/2022 1053 Pain Level: 6 Pain Location: Back-Lower wraps around abdomen and down left leg into foot Description: Shooting;Numbness;Aching Duration Amount of Time: 1 Duration Units: Years Frequency: Continuous Intervention/Comfort measure: Medication;Exercise;Heat;Cold Pain Radiation: down the left thigh, below the left knee and to the left foot/feet Aggravating Factors: Walking Alleviating Factors: None Pain Ratio: Pain in the back is greater than in the leg DERMATOMAL DISTRIBUTION: Left: L5 AMBULATORY STATUS: Independent Community Distances ANTIPLATELET OR ANTICOAGULATION STATUS: No PREVIOUS CONSERVATIVE TREATMENTS: OTC NSAIDS for 3 Months or Greater (Aleve and Tylenol / acetaminophen) Muscle Relaxants Analgesics Physical Therapy: 2 weeks PT in the last 1 months [employer] Home Exercise Program PREVIOUS SPINAL SURGERY: None ACTIVE PROBLEM LIST Low Tsh Level Graves Disease Hyperthyroidism Multiple Thyroid Nodules Benign Paroxysmal Positional Vertigo Low Vitamin D Level Dysthymia Migraine Variant Eustachian Tube Disorder, Left Chronic Jaw Pain Intractable Right Heel Pain Fatigue Thyroid Nodule Headache, Unspecified Headache Type Pnd (Paroxysmal Nocturnal Dyspnea) Hypersomnia Snoring Arthritis, Multiple Joint Involvement Tenosynovitis, De Quervain Pain of Left Thumb External Hemorrhoid Lateral Epicondylitis of Right Elbow Well Adult Exam Elbow Pain, Right Left Leg Paresthesias Lumbosacral Radiculopathy At L5 Acute Bilateral Low Back Pain With Left-Sided Sciatica PAST MEDICAL HISTORY Diagnosis Date Anxiety Depression Low vitamin D level 07/30/2018 Migraines PAST SURGICAL HISTORY Procedure Laterality Date DELIVERY ONLY 2007 , low transverse CONIZATION CERVIX W/WO D&C RPR ELTRD EXC 1994 LEEP-Cervix KNEE ARTHROSCOPY 1985 Left SEPTOPLASTY/SUBMUCOUS RESECJ W/WO CARTILAGE GRF 2012 FAMILY HISTORY Problem Relation Age of Onset Emphysema Paternal Grandfather Social History Tobacco Use Smoking status: Never Smoker Smokeless tobacco: Never Used Substance Use Topics Alcohol use: Yes Comment: Occasionally Drug use: No ALLERGIES Allergen Reactions Adhesive Rash, Other: See Comments Rash like blisters Amoxicillin Rash Latex Other: See Comments Blistering rash Seasonal Allergies Other: See Comments Nasal congestion, itchy eyes MEDICATIONS: acetaminophen 325 mg-caffeine 40 mg-butalbital 50 mg (FIORICET) per tablet Take 1 tablet by mouth once daily as needed for headache (migraine headache). rizatriptan (MAXALT) 10 mg tablet Take 1 tablet by mouth at first sign of headache/migraine. May take again in 2 hours if necessary. topiramate (TOPAMAX) 200 mg tablet Take 1 tablet by mouth once daily. GABAPENTIN, BULK, MISC methIMAzole (TAPAZOLE) 5 mg tablet Take 0.5 tablets by mouth every other day. cyclobenzaprine (FLEXERIL) 10 mg tablet Take 1 tablet by mouth three times daily as needed for muscle spasm. buPROPion XL (WELLBUTRIN XL) 150 mg 24 hr tablet Take 1 tablet by mouth once daily. escitalopram oxalate (LEXAPRO) 20 mg tablet Take 1 tablet by mouth once daily. METHOTREXATE ORAL Take by mouth. meclizine (ANTIVERT) 25 mg tab Take 1 tablet by mouth three times daily. traZODone (DESYREL) 50 mg tablet Take 2 tablets by mouth daily at bedtime. meloxicam (MOBIC) 15 mg tablet Take 1 tablet by mouth once daily. Take with food. fluticasone (FLONASE) 50 mcg/actuation nasal spray Use 2 Sprays in each nostril once daily. Rinse mouth after use. hydrocortisone (ANUSOL-HC) 2.5 % rectal cream by RECTAL route twice daily as needed (external hemorrhoids). External hemorrhoids hydroxychloroquine (PLAQUENIL) 200 mg tablet Take 200 mg by mouth twice daily. predniSONE (DELTASONE) 10 mg tablet Take 1 tablet by mouth once daily. As needed for joint pain flare up gabapentin (NEURONTIN) 300 mg capsule Take 1 capsule in the morning and 1 capsule at bedtime for 3 days. If tolerated, okay to increase to 1 in the morning, 1 at lunch and 1 at bedtime. REVIEW OF SYSTEMS: PAIN ASSESSMENT: See HPI. GENERAL: Denies fever, chills malaise and weight loss. HEENT: No recent change in vision or hearing. CARDIOVASCULAR: Denies chest pain, history of A-fib, valvular disease, or pacemaker/ICD. RESPIRATORY: Denies SOB, sputum production, and hemoptysis. GI: Denies GI ulcers, inflammatory disease, or liver disease. : Denies change in frequency or urgency, kidney disease, and burning with urination. MUSCULOSKELETAL: Positive for See HPI SKIN: Denies rash or itching. PSYCHOLOGICAL: Denies uncontrolled depression or anxiety. NEURO: + Fibromyalgia. Denies CVA, seizures, headaches. ENDOCRINE: + Graves Disease HEMATOLOGY/LYMPHOLOGY: Denies cancer, bleeding or clotting disorders, anemia,and DVT's. ALLERGIC/IMMUNOLOGICAL: Denies risks for infection, or recent MRSA infections. Patient Entered Questionnaires Spine Questions 05/06/2022 Pain Location: Lower back Symptoms from neck/cervical spine: No Employment Status: Working now Involved in law suit/legal claim: No Low Back Pain Questionnaires 04/10/2022 STarT Risk Score 3 (Medium risk for prolonged disability) STarT Distress Score 1 STarT Total Score 5 PROMIS Score Percentiles Physical Health 04/10/2022 05/06/2022 Physical Function Percentile 16* 5 Sleep Percentile - 14 Fatigue Percentile 8 8 Pain Interference Percentile 14 5 PROMIS SOCIAL ROLE SCORE 04/10/2022 05/06/2022 Social Role Satisfaction Percentile 24* 14 PROMIS Global Health Scale 11/01/2020 07/01/2021 03/28/2022 Physical Health Percentile 15 22* 15 Mental Health Percentile 34 43 53 Percentiles provide an indication of how the patient's score ranks in relation to the general population. Higher percentile rankings indicate better function/quality of life. 50th percentile is the average of the general population and indicates half of respondents had a worse score. Depression Screening: PHQ-9 12/22/2019 07/13/2021 05/06/2022 Score 6 1 1 PHQ-9 Self-harm Question 12/22/2019 07/13/2021 05/06/2022 Thoughts that you would be better off , or of hurting yourself in some way 0 0 0 PHQ-9 Self-Harm (Item 9) response options: 0 Not at all 1 Several days 2 More than half the days 3 Nearly every day PHQ-9 Levels: 0-4 No to mild depression 5-9 Mild depression 10-14 Moderate depression 15-19 Moderately severe depression 20-27 Severe depression OBJECTIVE: PHYSICAL EXAM BP 141/84 Pulse 97 Resp 14 Ht 167.6 cm (5' 6 ) Wt 93.5 kg (206 lb 1.6 oz) LMP 01/23/2022 (Approximate) SpO2 100% BMI 33.27 kg/m GENERAL APPEARANCE: Well nourished, well developed, and no apparent distress. NEURO PSYCH: Patient oriented to person, place, and time. Mood pleasant. Benign affect. MUSCULOSKELETAL VISUAL INSPECTION CERVICAL: WNL THORACIC: WNL LUMBAR: WNL PALPATION: SPINOUS PROCESS: No pain. PARASPINALS: No pain. MUSCLE BULK: Normal and symmetrical in the upper & lower extremities. MUSCLE TONE: Normal. MOTOR: 5/5 in all muscle groups. SENSORY: Normal sensory exam GAIT: Normal. Able to toe raise and heel walk without difficulty REFLEXES: +2 to bilateral U/L extremities. PROPRIOCEPTION: Normal. LONG TRACT SIGNS: No clonus. No Hoffmans. STRAIGHT LEG TEST: Ipsilateral: Negative. Contralateral: Negative. L'HERMITTES SIGN: Negative. SPURLING'S TEST: Negative. DATA REVIEW [facility] records independently reviewed Images independently reviewed with the patient ASSESSMENT/PLAN (M71.38) Synovial cyst of lumbar facet joint (primary encounter diagnosis) (M54.16) Radiculopathy, lumbar region Saad Villafana is a 47 year old female presenting today with low back pain and left leg pain. Upon physical exam, she is neurologically intact from the spine standpoint; 5/5 motor strength. Lumbar MRI reveals a left sided facet cyst at L4-L5. Had lengthy discussion with patient regarding current symptoms and imaging findings. Discussed ongoing conservative management options versus surgical intervention. Discussed further titration of gabapentin, trial of left ANURADHA with cyst aspiration for left leg pain, pars injection for back pain etc. Advised that surgical intervention would be to primary target left leg pain. Patient provided FMLA paperwork. She is looking for intermittent FMLA for further office visits / appointments. She is unable to put patient's in restraints at this time due to pain. Advised that we will fill this out and get it faxed. Saad Villafana will continue with medical management of his/her condition. 1. Medications: Gabapentin 300 mg - titration provided 2. Imaging: Lumbar Oblique / Flexion / Extension 3. Follow up: Patient will contact my office with any questions or concerns. The majority of the visit was spent counseling and/or coordinating care for the patient. The patient was counseled regarding lumbar radiculopathy. Total face to face time was 45 minutes. SIGNATURE: Natasha Garcia PA-C PATIENT NAME: Saad Villafana DATE: May 12, 2022 TIME: 11:40 AM PAGER:[phone] documented in this encounter [facility] 04-27-2022 History of Present illness Narrative Episode Visit Count: 2 Therapist That Will Oversee The Plan Of Care: Baljeet Rico Start of Care Date: 04/11/22 Onset Date: 10/11/21 Patient Identified by Name and Date of : Yes REHABILITATION AND SPORTS THERAPY PHYSICAL THERAPY TREATMENT NOTE ASSESSMENT: Saad Villafana tolerated the session with decreased symptoms and no issues. She demonstrated improvements in no numbness of the L foot. The patient will continue to benefit from ongoing skilled physical therapy to progress toward set goals. PLAN FOR NEXT VISIT: Lumbar traction and POC update SUBJECTIVE: Patient Reason for Visit: The back pain has not been as bad. The foot is still numb. Pain: Pain Pain Level: 4 Pain Location: Low Back/Lumbar Spine - Left;Buttocks - Left OBJECTIVE MEASURES WITH LEVEL OF FUNCTION: LE Flexibility R Quadriceps Flexibility: WNL L Quadriceps Flexibility: WNL R Hip Internal Rotation Flexibility: WNL L Hip Internal Rotation Flexibility: WNL R Hip External Rotation Flexibility: WNL L Hip External Rotation Flexibility: WNL L hip ER 55 degrees and R is 40 degrees Negative Sarita's bilat Prone L hip ext irritates L LB TREATMENT: Therapeutic Exercise: 1: Child's pose arms offset to the R x 10 holding 5 sec each 2: Seated lumbar flexion x 10 reps Skilled Intervention: Patient was educated in proper exercise technique and purpose for exercises. Provided written instruction for home exercise program to facilitate proper performance and compliance. Correct performance of therapeutic exercises was facilitated with verbal and visual cuing. Manual Therapy: 1: Supine lumbar traction x 13 min with strap and stool Skilled Intervention: Manual skills to improve joint mobility, ROM, and decrease pain. Utilized anatomy knowledge of the therapist, and assessment of patient's response to intervention. Billing Therapeutic Exercise Treatment Minutes: 27 Manual TherapyTreatment Minutes: 13 Total Treatment Time Minutes (timed/untimed): 40 Baljeet Rico PT documented in this encounter [facility] 04-21-2022 Miscellaneous Notes Patient has been identified by name and date of : Yes Patient phones for refill(s): Pending Prescriptions Disp Refills [id number] 50 MG-325 MG-40 MG TABLET 30 tablet 1 Sig: Take 1 tablet by mouth once daily as needed for headache (migraine headache). TAVIA: No RIZATRIPTAN 10 MG TABLET 12 tablet 2 Sig: Take 1 tablet by mouth at first sign of headache/migraine. May take again in 2 hours if necessary. TAVIA: No Date of last office visit in primary care: 03/29/22 Last 2 Encounter Wt Readings: Date: Wt: 03/29/2022 92.1 kg (203 lb) 03/23/2022 96.2 kg (212 lb) Previous labs/tests for medication: Not applicable Please advise. Thank you. Kym Tellez LPN documented in this encounter [facility] 04-21-2022 Miscellaneous Notes Patient has been identified by name and date of : Yes Patient phones for refill(s): Pending Prescriptions Disp Refills TOPIRAMATE 200 MG TABLET 30 tablet 0 Sig: Take 1 tablet by mouth once daily. TAVIA: No Date of last office visit in primary care: 03/29/22 Last 2 Encounter Wt Readings: Date: Wt: 03/29/2022 92.1 kg (203 lb) 03/23/2022 96.2 kg (212 lb) Previous labs/tests for medication: Not applicable Please advise. Thank you. Kym Tellez LPN documented in this encounter [facility] 04-13-2022 History of Present illness Narrative Patient name: Saad Villafana Are you being referred by a [facility] for Spine Health Provider or Pain Management Provider at [facility]? No If answer is YES please schedule directly with surgeon, triage does not need to be completed. Is this a self-referral No If not, who is the Referring Provider Lawrence Howard, DO Is this a 2nd opinion, have you been offered surgery by another surgeon? No MRI/CT/myelogram within 12 months? Yes If NO , please refer to medical spine or PCP to complete above imaging, triage does not need to be completed If YES, please ask for the name/address of the facility where the MRI/CT/myelogram was completed: [facility] MRI/CT/myelogram viewable in Epic: Yes If not, please provide [phone] to fax in imaging reports for review. Also, please inform patient to hand carry imaging disc to appointment. XR (spine) within 12 months: Yes If YES, please ask for the name/address of the facility where the XR was completed: [facility] Requested provider (First and Last name): N/A Are you interested in a virtual visit if offered? No 1. Where are you having symptoms related to this visit? LBP Down to (L) leg w/ nerve pain Back pain Yes Leg pain Yes Arm pain No Neck pain No 2. Are you having any of the following symptoms: Difficulty walking Yes Walking slow Numbness Yes (L) Foot Weakness Yes Trouble using your hands? No 3. Have you had any injections or physical therapy in the last 12 months? Yes If YES then please ask for the name/address of the facility where the injections and/or physical therapy was completed PT Zaida Cerda, ROSEANN Have you tried any other kinds of non-surgical treatments in the last 12 months? (For example: NSAIDS, muscle relaxants, analgesics, oral steroids, Chiropractor, Acupuncture): Prednisone 4. Are you currently taking daily prescribed narcotic medications for your current symptoms (For example Oxycodone, Hydrocodone, Tramadol, Morphine, Other)? No 5. Have you had previous spinal surgery for this same symptoms? No If YES please ask for the name of facility/address of where the surgery was completed: N/A Additional Comments documented in this encounter [facility] 04-11-2022 History of Present illness Narrative Episode Visit Count: 1 Therapist That Will Oversee The Plan Of Care: Baljeet Rico Start of Care Date: 04/11/22 Onset Date: 10/11/21 Patient Identified by Name and Date of : Yes REHABILITATION AND SPORTS THERAPY PHYSICAL THERAPY EVALUATION PLAN OF CARE: Assessment: Saad Villafana presents with chief complaint of L sided LBP and radiculopathy that interferes with standing;walking . She presents with impairments in ADL's, gait and independence in exercise. PROMIS (Patient-Reported Outcomes Measurement Information System) scores were reviewed and all domains identified as a rehabilitation concern. Prognosis for therapy is Fair due to: clinical presentation . Pt demonstrates a lumbar flexion direction of preference. She will benefit from skilled therapy services to meet the goals established for this plan of care as noted below. Classification Low Back Pain Subgroup Classification: Specific exercise subgroup: recommended visits 8. Specific Exercies Subgroup Classification based on: directional preference;centralization Goals for Episode of Care: created on 04/11/22 through 05/09/22 Pt will be able to reduce pain with walking and standing by 60% with the use of proper alignment and activation of the gluteals and rectus abdominus Pt will demo active lumbar flexion ROM that is without pain for ease of picking up objects [place] in home exercise program. Patient Goals: decrease pain Planned Interventions, Frequency, and Duration: Current Frequency: 1x/week Duration: 4 weeks Total Number of Visits Planned: 4 Planned Treatment Interventions: Therapeutic exercise (80647);Manual therapy (63417);Self-fpc management (82425);Patient/Family/Caregiver Education PLAN FOR NEXT VISIT: Opening lumbar facets. Strengthening RA. Patient demonstrates good understanding of plan of care and treatment. The above goals and plan of care were discussed and agreed upon by patient/family. SUBJECTIVE: Saad Villafana is a 47 year old female seen today for Pain in the L buttock down to the foot. Some days were fine and some days weren't. Would come on and off and since 1.5 months ago it got worse. Pain into the 4th toe described as a numbness. Pt cannot stand for very long. Sitting helps. Will be scheduling an appointment with a spine surgeon. Patient Goals: decrease pain Functional Limitations: standing;walking Prior Level of Function: Independent without limitations Relevant History Preferred Language: Lao Intake Information: Prescription present Previous Treatment: Injections Red Flags Vertebral Fracture Clinical Reasoning: No identified risk factors Abdominal Aortic Aneurysm Clinical Reasoning: No identified risk factors. Cancer Clinical Reasoning: No identified risk factors. Infection Clinical Reasoning: No identified risk factors. Cauda Equina Syndrome Clinical Reasoning: No identified risk factors. Red Flags - Cervical Cancer Clinical Reasoning: No identified risk factors. Infection Clinical Reasoning: No identified risk factors. Spine History Symptoms Location at Onset: Back Symptoms Since Onset: (Depends on the day) Pain is Worse Always: Standing;Walking Pain is Better Always: Sitting Pain: Pain Pain Level: 4 (sitting) Pain Location: Low Back/Lumbar Spine - Left;Buttocks - Left Description: Aching PROMIS Scales Higher is Better 07/01/2021 03/28/2022 04/10/2022 Phys Func - Score - - 40 (mild dysfunction) Phys Func - Percentile - - 16 % Social Roles - Score - - 43 (mild dysfunction) Social Role - Percentile - - 24 % GH Physical - Score 42.3 (Good) 39.8 (Fair) - GH Physical - Percentile 22 % 15 % - GH Mental - Score 48.3 (Very Good) 50.8 (Very Good) - GH Mental - Percentile 43 % 53 % - Self-Eff Symptom - Score - - 48 (Average) Self-Eff Symptom - Percentile - - 42 % T-scores: mean of general population = 50. 5 points is clinically meaningfully difference Percentiles provide an indication of how the patient's score ranks in relation to the general population. Higher percentile rankings indicate better function/quality of life. 50th percentile is the average of the general population and indicates half of respondents had a worse score. Lower is Better 04/10/2022 Fatigue - Score 64 (moderate) Fatigue - Percentile 8 % T-scores: mean of general population = 50. 5 points is clinically meaningfully difference Percentiles provide an indication of how the patient's score ranks in relation to the general population. Higher percentile rankings indicate better function/quality of life. 50th percentile is the average of the general population and indicates half of respondents had a worse score. OBJECTIVE MEASURES WITH LEVEL OF FUNCTION: Lumbar Spine AROM Lumbar Flexion: Normal;Increased pain Lumbar Extension: Normal Lumbar R Side-Bend: Normal;Increased pain Lumbar L Side-Bend: Normal;Increased pain LE AROM Tested?: Yes LE AROM R LE AROM: WNL L LE AROM: WNL L Hip Flexion: (Pain near end range in the LB near 110 degrees) LE Flexibility Flexibility: Quadriceps Flexibility;Hip Internal Rotation Flexibility;Hip External Rotation Flexibility R Quadriceps Flexibility: WNL L Quadriceps Flexibility: WNL R Hip Internal Rotation Flexibility: WNL L Hip Internal Rotation Flexibility: WNL R Hip External Rotation Flexibility: WNL L Hip External Rotation Flexibility: WNL LE Strength R LE Strength: Grossly 5/5 L LE Strength: Grossly 5/5 Gait Gait Observation: Gait pati is slower and cautious due to pain Education: Education Learning Preferences: Demonstration;Explanation;Perform ance;Printed Materials Barriers: None Learning/educational needs: Home exercise program;Plan of Care Education Provided: Yes, see treatment interventions for education provided Education Provided To: Patient Education Mode/Type: Demonstration;Explanation/Discuss ion;Literature/Printed Materials;Performance Response to Education/Teach Back: States/Identifies;Return Demonstration TREATMENT: PT Treatment Interventions: Therapeutic Exercise Evaluation Therapeutic Exercise: 1: Discussed therapy goals and exam findings. Discussed the HEP and its purpose. Handout provided. Discussed maintaining a neutral pelvis when standing/walking. 2: Cat pose x 10 quadruped 3: Seated lumbar flexion stretch x 20 seconds Skilled Intervention: Patient was educated in proper exercise technique and purpose for exercises. Provided written instruction for home exercise program to facilitate proper performance and compliance. Correct performance of therapeutic exercises was facilitated with verbal and visual cuing. Billing * Evaluation Low Complexity: 1 Unit Therapeutic Exercise Treatment Minutes: 15 Total Treatment Time Minutes (timed/untimed): 37 Baljeet Rico PT documented in this encounter [facility] 04-05-2022 Miscellaneous Notes Letter faxed. Pattie Gamboa LPN Letter signed, please fax and notify patient Lawrence Howard DO Letter on your desk. Pattie Gamboa LPN Yes, she should be avoiding that type of activity if able. Please create letter as requesting below for me to review and sign Lawrence L Howard, DO Patient returned call and asked question for PCP. 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 Asking if she should avoid this at her job? She would need a letter to be faxed to attention of Isaiah Smith at [phone]. Please advise Assisted with transfer to casket liner to get MRI appt set up. Called and left a detailed voicemail notifying patient of providers message. Hospital phone number was left in case patient had any questions. Ana Dickerson RN Please inform patient that her xray of the lumbar spine shows a IMPRESSION: Suspected pars interarticularis defect at L5 without anterolisthesis. Intervertebral disc spaces and vertebral body heights are preserved. This means there may be a lateral vertebral fracture (not the vertebral body). I would like her to have additional imaging MRI lumbar as ordered. Also recommend follow up with spine surgeon after imaging. Lawrence Howard DO documented in this encounter [facility] 04-05-2022 Miscellaneous Notes Spoke with pt gave information provided. Pt voices understanding. Is willing to see Spine surgeon. Please inform patient that her MRI lumbar spine shows IMPRESSION: Bilateral chronic L5 pars interarticularis defects (both sides of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 Expiration Date Visits Requested Visits Authorized [id number] Pending Review Auto-Generat ed Referral 04/26/2022 05/26/2023 1 1 [facility] for referral (narrative)* Diagnostic Procedure Only (Routine) - Pending Review Specialty Diagnoses / Procedures Referred By Zeynep lee Referred To Contact XR IMAGING Diagnoses Synovial cyst of lumbar facet joint Radiculopathy, lumbar region Procedures XR LUMBAR PARS DEFECT 2V BOTH OBL RADEX SPINE LUMBOSACRAL 2/3 VIEWS Natasha Garcia PA-C [address] [place] [address] [facility] Referral ID Status Reason Start Date Expiration Date Visits Requested Visits Authorized [id number] Pending Review Auto-Generat ed Referral 05/12/2022 06/11/2023 1 1 * Diagnostic Procedure Only (Routine) - Pending Review Specialty Diagnoses / Procedures Referred By Contac t Referred To Contact XR IMAGING Diagnoses Synovial cyst of lumbar facet joint Radiculopathy, lumbar region Procedures XR LUMBAR MOTION 4V AP/LAT/ FLEX/EXT RADEX SPINE LUMBOSACRAL MINIMUM 4 VIEWS Natasha Garcia PA-C [address] [place] [address] [facility] Referral ID Status Reason Start Date Expiration Date Visits Requested Visits Authorized [id number] Pending Review Auto-Generat ed Referral 05/12/2022 06/11/2023 1 1 [facility] for referral (narrative)* Diagnostic Procedure Only (Routine) - Pending Review Specialty Diagnoses / Procedures Referred By Contac t Referred To Contact [facility] IMAGING Diagnoses Thyroid nodule Procedures US THYROID/PARATHYROID US SOFT TISSUE HEAD & NECK REAL TIME IMGE Reyna Tubbs MD [address] [place] [id number] [facility] Referral ID Status Reason Start Date Expiration Date Visits Requested Visits Authorized [id number] Pending Review Auto-Generat ed Referral 11/24/2022 12/24/2023 1 1 [facility] for referral (narrative)* Diagnostic Procedure Only (Routine) - Authorized Specialty Diagnoses / Procedures Referred By Contac t Referred To Contact [facility] Diagnoses Thyroid nodule Procedures US THYROID/PARATHYROID US SOFT TISSUE HEAD & NECK REAL TIME IMGE Reyna Tubbs MD [address] [address] [facility] Referral ID Status Reason Start Date Expiration Date Visits Requested Visits Authorized [id number] Authorized Auto-Generat ed Referral 01/19/2023 02/18/2024 1 1 [facility] for referral (narrative)* Outpatient Procedure (Routine) - Pending Review Specialty Diagnoses / Procedures Referred By Contac t Referred To Contact [facility] Diagnoses Screening for colon cancer Procedures COLONOSCOPY SCREENING COLONOSCOPY FLX DX W/COLLJ SPEC WHEN PFRMD Vicente Lakhani APRN.[employer] [address] [place] [address] [facility] [address] [place] [address] Referral ID Status Reason Start Date Expiration Date Visits Requested Visits Authorized [id number] Pending Review Auto-Generat ed Referral 02/02/2023 02/03/2024 1 1 [facility] for referral (narrative)* Diagnostic Procedure Only (Routine) - Authorized Specialty Diagnoses / Procedures Referred By Contac t Referred To Contact [facility] IM[facility] Diagnoses Elevated LFTs Procedures US ABD RIGHT UPPER QUADRANT US ABDOMINAL REAL TIME W/IMAGE LIMITED Vicente Lakhani APRN.[employer] [address] [place] [address] [facility] Referral ID Status Reason Start Date Expiration Date Visits Requested Visits Authorized [id number] Authorized Auto-Generat ed Referral 02/05/2023 03/06/2024 1 1 [facility] for referral (narrative)* Outpatient Procedure (Routine) - Authorized Specialty Diagnoses / Procedures Referred By Contac t Referred To Contact [facility] Diagnoses Elevated LFTs Abnormal ultrasound of liver Procedures DDI VIBRATION CONTROLLED TRANSIENT ELASTOGRAPHY (VCTE) LIVER ELASTOGRAPHY W/O IMAG W/I&R Vicente Lakhani APRN.CNP [address] [place] [address] [facility] [address] [place] [id number] Referral ID Status Reason Start Date Expiration Date Visits Requested Visits Authorized [id number] Authorized Auto-Generat ed Referral 02/10/2023 02/11/2024 1 1 [facility] for referral (narrative)* Diagnostic Procedure Only (Routine) - Pending Review Specialty Diagnoses / Procedures Referred By Contac t Referred To Contact [facility] Diagnoses Encounter for screening mammogram for breast cancer Procedures ELIJAH SCREENING SCREENING MAMMOGRAPHY BI 2-VIEW BREAST INC CAD Lawrence Howard DO [address] [place] [address] [facility] [address] [place] [phone] Referral ID Status Reason Start Date Expiration Date Visits Requested Visits Authorized [id number] Pending Review Auto-Generat ed Referral 04/04/2023 05/03/2024 1 1 [facility] for referral (narrative)* Outpatient Procedure (Routine) - Authorized Specialty Diagnoses / Procedures Referred By Contac t Referred To [facility] Diagnoses Pain and swelling of left knee Posterior knee pain, left Procedures US LEG VEIN DVT UNL VAS LAB DUP-SCAN XTR VEINS UNILATERAL/LIMITED STUDY Lawrence Howard DO [address] [place] [address] [facility] [address] [place] [id number] Referral ID Status Reason Start Date Expiration Date Visits Requested Visits Authorized [id number] Authorized Auto-Generat ed Referral 06/26/2023 06/25/2024 1 1 * Diagnostic Procedure Only (Routine) - Closed Specialty Diagnoses / Procedures Referred By Contac t Referred To Contact XR IMAGING Diagnoses Pain and swelling of left knee Posterior knee pain, left Procedures XR KNEE GENERAL 4V AP BOTH/PA BOTH/LAT/MERC LEFT RADIOLOGIC EXAM KNEE COMPLETE 4/MORE VIEWS Lawrence Howard DO [address] [place] [address] [place] [address] Referral ID Status Reason Start Date Expiration Date V isits Requested Visits Authorized [id number] Closed Auto-Generate d Referral 06/26/2023 07/25/2024 1 1 * Consult, Test, Treat (Routine) - Authorized Specialty Diagnoses / Procedures Referred By Contac t Referred To Contact Pain Management Diagnoses Chronic right-sided low back pain with right-sided sciatica Procedures CONSULT TO PAIN MGT OFFICE/OUTPATIENT [facility] 60-74 MINUTES Lawrence Howard DO [address] [place] [address] Referral ID Status Reason Start Date Expiration Date Visits Requested Visits Authorized [id number] Authorized PCP Requested Referral 06/26/2023 06/25/2024 1 1 * Diagnostic Procedure Only (Routine) - Closed Specialty Diagnoses / Procedures Referred By Contac t Referred To Contact XR IMAGING Diagnoses Chronic right-sided low back pain with right-sided sciatica Procedures XR LUMBAR GENERAL 3V AP/LAT/L5-S1 RADEX SPINE LUMBOSACRAL 2/3 VIEWS Lawrence Howard DO [address] [place] [address] [place] [address] Referral ID Status Reason Start Date Expiration Date V isits Requested Visits Authorized [id number] Closed Auto-Generate d Referral 06/26/2023 07/25/2024 1 1 [facility] for referral (narrative)* Diagnostic Procedure Only (Routine) - Closed Specialty Diagnoses / Procedures Referred By Contac t Referred To Contact [facility] Diagnoses Thyroid nodule Procedures US THYROID/PARATHYROID US SOFT TISSUE HEAD & NECK REAL TIME IMGE Reyna Tubbs MD [address] [address] [place] [address] Referral ID Status Reason Start Date Expiration Date V isits Requested Visits Authorized [id number] Closed Auto-Generate d Referral 01/19/2023 02/18/2024 1 1 [facility] for referral (narrative)* Diagnostic Procedure Only (Routine) - Closed Specialty Diagnoses / Procedures Referred By Contac t Referred To Contact [facility] Diagnoses Elevated LFTs Procedures US ABD RIGHT UPPER QUADRANT US ABDOMINAL REAL TIME W/IMAGE LIMITED Vicente Lakhani APRN.[employer] [address] [place] [address] [place] [address] Referral ID Status Reason Start Date Expiration Date V isits Requested Visits Authorized [id number] Closed Auto-Generate d Referral 02/05/2023 03/06/2024 1 1 [facility] for referral (narrative)* Outpatient Procedure (Routine) - Closed Specialty Diagnoses / Procedures Referred By Contac t Referred To Contact [facility] Diagnoses Screening for colon cancer Procedures COLONOSCOPY SCREENING COLONOSCOPY FLX DX W/COLLJ SPEC WHEN PFRMD Vicente Lakhani APRN.[employer] [address] [place] [address] [facility] [address] [place] [id number] Referral ID Status Reason Start Date Expiration Date V isits Requested Visits Authorized [id number] Closed Auto-Generate d Referral 02/02/2023 02/03/2024 1 1 [facility] for visit Narrative* Outpatient Procedure (Routine) - Closed Specialty Diagnoses / Procedures Referred By Contac t Referred To Contact [facility] Diagnoses Elevated LFTs Abnormal ultrasound of liver Procedures DDI VIBRATION CONTROLLED TRANSIENT ELASTOGRAPHY (VCTE) LIVER ELASTOGRAPHY W/O IMAG W/I&R Vicente Lakhani, THORACIC MEDICINE PHYSICIAN.[employer] [address] [place] [address] [facility] [address] [place] [address] Referral ID Status Reason Start Date Expiration Date V isits Requested Visits Authorized [id number] Closed Auto-Generate d Referral 02/10/2023 02/11/2024 1 1 [facility] for visit Narrative* Outpatient Procedure (Routine) - Closed Specialty Diagnoses / Procedures Referred By Zeynep t Referred To Contact [facility] Diagnoses Screening for colon cancer Procedures COLONOSCOPY SCREENING COLONOSCOPY FLX DX W/COLLJ SPEC WHEN PFRMD Vicente Lakhani, LAUREN.[employer] [address] [place] [address] [address] Referral ID Status Reason Start Date Expiration Date V isits Requested Visits Authorized [id number] Closed Auto-Generate d Referral 02/02/2023 02/03/2024 1 1 [facility] Summary Purpose Family History No Family History Records FoundNo Family History Records FoundNo Family History Records Found Advance Directives No Advanced Directives Records FoundNo Advanced Directives Records FoundNo Advanced Directives Records Found Medications Administered Section Inactive Administered Medications - up to 3 most recent administrations Medication Order MAR Action Action Date Dose Rate Site triamcinolone acetonide 40 mg injection (KeNALog 40) 40 mg, INTRAMUSCULAR, ONCE, 1 dose, On Sun02/08/22 at 2200 Given 02/09/2022 12:23 PM EDT 40 mg Buttocks, Right Inactive Administered Medications - up to 3 most recent administrations Medication Order MAR Action Action Date Dose Rate Site keTORolac 60 mg injection (TORADOL) 60 mg, INTRAMUSCULAR, ONCE, 1 dose, On Sun03/29/22 at 2000, Ketorolac (Toradol) is indicated for the short-term (up to 5 days) management of moderately severe acute pain. Continuation of ketorolac (Toradol) beyond 5 days increases the risk of developing serious adverse events. Please verify the duration of therapy for ketorolac (Toradol)., If ordered PRN for pain, patient/guardian may elect to receive this medication for higher pain levels INSTEAD of the opioid, if preferred: Yes Given 03/29/2022 7:53 PM EDT 60 mg Hip, Right triamcinolone acetonide 40 mg injection (KeNALog 40) 40 mg, INTRAMUSCULAR, ONCE, 1 dose, On Sun03/29/22 at 2000 Given 03/29/2022 7:52 PM EDT 40 mg Hip, Left Inactive Administered Medications - up to 3 most recent administrations Medication Order MAR Action Action Date Dose Rate Site triamcinolone acetonide 40 mg injection (KeNALog 40) 40 mg, INTRAMUSCULAR, ONCE, 1 dose, On Sun08/16/22 at 0830 Given 08/16/2022 8:24 AM EDT 40 mg Buttocks, Right Inactive Administered Medications - up to 3 most recent administrations Medication Order MAR Action Action Date Dose Rate Site triamcinolone acetonide 40 mg injection (KeNALog 40) 40 mg, INTRAMUSCULAR, ONCE, 1 dose, On Sun06/01/23 at 1200 Given 06/01/2023 12:00 PM EDT 40 mg Hip, Left Inactive Administered Medications - up to 3 most recent administrations Medication Order MAR Action Action Date Dose Rate Site diphenhydrAMINE 12.5-50 mg injection (BENADRYL) 12.5-50 mg, INTRAVENOUS, DIRECTED, Starting on Sun03/02/23 at 0900, Until Sun03/02/23 at 1259, DOSING DIRECTED BY PHYSICIAN FOR PROCEDURAL SEDATION ONLY, Intraprocedure Given 03/02/2023 8:36 AM EDT 50 mg fentaNYL 50 mcg/mL 25-100 mcg injection (SUBLIMAZE) 25-100 mcg, INTRAVENOUS, DIRECTED, Starting on Sun03/02/23 at 0900, Until Sun03/02/23 at 1259, DOSING DIRECTED BY PHYSICIAN FOR PROCEDURAL SEDATION ONLY, Intraprocedure Given 03/02/2023 8:42 AM EDT 50 mcg Reason for Referral Specialty Diagnoses / Procedures Referred By Zeynep lee Referred To Contact [facility] Diagnoses Left leg paresthesias Lumbosacral radiculopathy at L5 Acute bilateral low back pain with left-sided sciatica Procedures CONSULT TO PHYSICAL THERAPY PHYSICAL THERAPY EVALUATION HIGH COMPLEX 45 MINS Lawrence Howard, DO [address] [place] [address] [facility] [address] [place] [address] Referral ID Status Reason Start Date Expiration Date Visits Requested Visits Authorized [id number] Pending Review Auto-Generat ed Referral 03/29/2022 03/29/2023 1 1 Specialty Diagnoses / Procedures Referred By Contac t Referred To Contact XR IMAGING Diagnoses Left leg paresthesias Lumbosacral radiculopathy at L5 Acute bilateral low back pain with left-sided sciatica Procedures XR LUMBAR GENERAL 3V AP/LAT/L5-S1 RADEX SPINE LUMBOSACRAL 2/3 VIEWS Lawrence Howard, DO [address] [place] [address] Xr Imaging Referral ID Status Reason Start Date Expiration Date Visits Requested Visits Authorized [id number] Pending Review Auto-Generat ed Referral 03/29/2022 04/28/2023 1 1 Specialty Diagnoses / Procedures Referred By Contac t Referred To Contact MR IMAGING Diagnoses Other fracture of unspecified lumbar vertebra, initial encounter for closed fracture (HCC) Abnormal x-ray of lumbar spine 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, subsequent encounter Lumbosacral radiculopathy at L5 Procedures MRI LUMBAR SPINE WO IVCON MRI SPINAL CANAL LUMBAR W/O CONTRAST MATERIAL Lawrence Howard, DO [address] [place] [address] Mr Imaging Referral ID Status Reason Start Date Expiration Date V isits Requested Visits Authorized [id number] Closed Auto-Generat ed Referral Patient Cleared - Admin/Chairm an/Director advise to proceed 04/04/2022 05/03/2022 1 1 Specialty Diagnoses / Procedures Referred By Contac t Referred To Contact [facility] Diagnoses Left leg paresthesias Lumbosacral radiculopathy at L5 Acute bilateral low back pain with left-sided sciatica Procedures PT REHAB FOLLOW UP ORDER THERAPEUTIC EXERCISES RE, EA 15 MIN. Baljeet Rico, PT [facility] [address] [place] [address] Referral ID Status Reason Start Date Expiration Date Visits Requested Visits Authorized [id number] Pending Review PCP Requested Referral Auto-Generate d Referral 04/11/2022 07/10/2022 1 1 Specialty Diagnoses / Procedures Referred By Contac t Referred To Contact Diagnoses Other closed fracture of fifth lumbar vertebra with routine healing, subsequent encounter Lumbosacral radiculopathy at L5 Procedures CONSULT TO SPINE SURGERY OFFICE/OUTPATIENT [facility] 60-74 MINUTES Lawrence Howard, DO [address] [place] [address] Referral ID Status Reason Start Date Expiration Date Visits Requested Visits Authorized [id number] Authorized PCP Requested Referral 04/05/2022 04/05/2023 1 1 Specialty Diagnoses / Procedures Referred By Contac t Referred To Contact Diagnoses Elevated LFTs Abnormal ultrasound of liver Procedures CONSULT TO HEPATOLOGY OFFICE/OUTPATIENT [facility] 60-74 MINUTES Vicente Lakhani APRN.[employer] [address] [place] [address] Referral ID Status Reason Start Date Expiration Date Visits Requested Visits Authorized [id number] Authorized PCP Requested Referral 02/26/2023 02/26/2024 1 1 Health Concerns Infection Onset Date Last Indicated Resolved Time COVID-19 Rule-Out 08/30/2022 08/30/2022 08/31/2022 7:25 AM EST COVID-19 Confirmed 08/30/2022 08/30/2022 Infection Onset Date Last Indicated Resolved Time COVID-19 Confirmed 08/30/2022 08/30/2022 Infection Onset Date Last Indicated Resolved Time COVID-19 Rule-Out 01/29/2023 01/29/2023 01/30/2023 4:33 AM EDT Additional Source Comments INFORMATION SOURCE (unrecogn ized section and content) DATE CREATED AUTHOR AUTHOR'S ORGANIZ ATION 10/18/2023 [facility] [place] DATE CREATED AUTHOR AUTHOR'S ORGANIZ ATION 11/06/2023 [facility] Source Comments (unrecognize d section and content) In the event this informatio n is protected by the Federal Confidentiality of Alcohol and Drug Abuse Patient Records regulations: The Federal rules restrict any use of the information to criminally investigate or prosecute any alcohol or drug abuse patient.[facility] Center[facility] the event this information is protected by the Federal Confidentiality of Alcohol and Drug Abuse Patient Records regulations: The Federal rules restrict any use of the information to criminally investigate or prosecute any alcohol or drug abuse patient.[facility] CenterIn the event this information is protected by the Federal Confidentiality of Alcohol and Drug Abuse Patient Records regulations: The Federal rules restrict any use of the information to criminally investigate or prosecute any alcohol or drug abuse patient.[facility] CenterIn the event this information is protected by the Federal Confidentiality of Alcohol and Drug Abuse Patient Records regulations: The Federal rules restrict any use of the information to criminally investigate or prosecute any alcohol or drug abuse patient.[facility] CenterIn the event this information is protected by the Federal Confidentiality of Alcohol and Drug Abuse Patient Records regulations: The Federal rules restrict any use of the information to criminally investigate or prosecute any alcohol or drug abuse patient.[facility] CenterIn the event this information is protected by the Federal Confidentiality of Alcohol and Drug Abuse Patient Records regulations: The Federal rules restrict any use of the information to criminally investigate or prosecute any alcohol or drug abuse patient.[facility] CenterIn the event this information is protected by the Federal Confidentiality of Alcohol and Drug Abuse Patient Records regulations: The Federal rules restrict any use of the information to criminally investigate or prosecute any alcohol or drug abuse patient.[facility] CenterIn the event this information is protected by the Federal Confidentiality of Alcohol and Drug Abuse Patient Records regulations: The Federal rules restrict any use of the information to criminally investigate or prosecute any alcohol or drug abuse patient.[facility] CenterIn the event this information is protected by the Federal Confidentiality of Alcohol and Drug Abuse Patient Records regulations: The Federal rules restrict any use of the information to criminally investigate or prosecute any alcohol or drug abuse patient.[facility] CenterIn the event this information is protected by the Federal Confidentiality of Alcohol and Drug Abuse Patient Records regulations: The Federal rules restrict any use of the information to criminally investigate or prosecute any alcohol or drug abuse patient.[facility] CenterIn the event this information is protected by the Federal Confidentiality of Alcohol and Drug Abuse Patient Records regulations: The Federal rules restrict any use of the information to criminally investigate or prosecute any alcohol or drug abuse patient.[facility] CenterIn the event this information is protected by the Federal Confidentiality of Alcohol and Drug Abuse Patient Records regulations: The Federal rules restrict any use of the information to criminally investigate or prosecute any alcohol or drug abuse patient.[facility] CenterIn the event this information is protected by the Federal Confidentiality of Alcohol and Drug Abuse Patient Records regulations: The Federal rules restrict any use of the information to criminally investigate or prosecute any alcohol or drug abuse patient.[facility] CenterIn the event this information is protected by the Federal Confidentiality of Alcohol and Drug Abuse Patient Records regulations: The Federal rules restrict any use of the information to criminally investigate or prosecute any alcohol or drug abuse patient.[facility] CenterIn the event this information is protected by the Federal Confidentiality of Alcohol and Drug Abuse Patient Records regulations: The Federal rules restrict any use of the information to criminally investigate or prosecute any alcohol or drug abuse patient.[facility] CenterIn the event this information is protected by the Federal Confidentiality of Alcohol and Drug Abuse Patient Records regulations: The Federal rules restrict any use of the information to criminally investigate or prosecute any alcohol or drug abuse patient.[facility] CenterIn the event this information is protected by the Federal Confidentiality of Alcohol and Drug Abuse Patient Records regulations: The Federal rules restrict any use of the information to criminally investigate or prosecute any alcohol or drug abuse patient.[facility] CenterIn the event this information is protected by the Federal Confidentiality of Alcohol and Drug Abuse Patient Records regulations: The Federal rules restrict any use of the information to criminally investigate or prosecute any alcohol or drug abuse patient.[facility] CenterIn the event this information is protected by the Federal Confidentiality of Alcohol and Drug Abuse Patient Records regulations: The Federal rules restrict any use of the information to criminally investigate or prosecute any alcohol or drug abuse patient.[facility] CenterIn the event this information is protected by the Federal Confidentiality of Alcohol and Drug Abuse Patient Records regulations: The Federal rules restrict any use of the information to criminally investigate or prosecute any alcohol or drug abuse patient.[facility] CenterIn the event this information is protected by the Federal Confidentiality of Alcohol and Drug Abuse Patient Records regulations: The Federal rules restrict any use of the information to criminally investigate or prosecute any alcohol or drug abuse patient.[facility] CenterIn the event this information is protected by the Federal Confidentiality of Alcohol and Drug Abuse Patient Records regulations: The Federal rules restrict any use of the information to criminally investigate or prosecute any alcohol or drug abuse patient.[facility] CenterIn the event this information is protected by the Federal Confidentiality of Alcohol and Drug Abuse Patient Records regulations: The Federal rules restrict any use of the information to criminally investigate or prosecute any alcohol or drug abuse patient.[facility] CenterIn the event this information is protected by the Federal Confidentiality of Alcohol and Drug Abuse Patient Records regulations: The Federal rules restrict any use of the information to criminally investigate or prosecute any alcohol or drug abuse patient.[facility] CenterIn the event this information is protected by the Federal Confidentiality of Alcohol and Drug Abuse Patient Records regulations: The Federal rules restrict any use of the information to criminally investigate or prosecute any alcohol or drug abuse patient.[facility] CenterIn the event this information is protected by the Federal Confidentiality of Alcohol and Drug Abuse Patient Records regulations: The Federal rules restrict any use of the information to criminally investigate or prosecute any alcohol or drug abuse patient.[facility] CenterIn the event this information is protected by the Federal Confidentiality of Alcohol and Drug Abuse Patient Records regulations: The Federal rules restrict any use of the information to criminally investigate or prosecute any alcohol or drug abuse patient.[facility] CenterIn the event this information is protected by the Federal Confidentiality of Alcohol and Drug Abuse Patient Records regulations: The Federal rules restrict any use of the information to criminally investigate or prosecute any alcohol or drug abuse patient.[facility] CenterIn the event this information is protected by the Federal Confidentiality of Alcohol and Drug Abuse Patient Records regulations: The Federal rules restrict any use of the information to criminally investigate or prosecute any alcohol or drug abuse patient.[facility] CenterIn the event this information is protected by the Federal Confidentiality of Alcohol and Drug Abuse Patient Records regulations: The Federal rules restrict any use of the information to criminally investigate or prosecute any alcohol or drug abuse patient.[facility] CenterIn the event this information is protected by the Federal Confidentiality of Alcohol and Drug Abuse Patient Records regulations: The Federal rules restrict any use of the information to criminally investigate or prosecute any alcohol or drug abuse patient.[facility] CenterIn the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 Start Date End Date Lawrence Howard, DO [address] [place] [address] PCP - General Family Practice 05/18/14 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 Relationship Specialty Start Date End Date Lawrence Howard, DO [address] [place] [address] PCP - General Family Practice 05/18/14 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 Relationship Specialty Start Date End Date Lawrence Howard, DO [address] [place] [address] PCP - General Family Practice 05/18/14 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 Relationship Specialty Start Date End Date Lawrence Howard, DO [address] [place] [address] PCP - General Family Practice 05/18/14 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 Relationship Specialty Start Date End Date Lawrence Howard, DO [address] [place] [address] PCP - General Family Practice 05/18/14 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 Relationship Specialty Start Date End Date Lawrence Howard, DO [address] [place] [address] PCP - General Family Practice 05/18/14 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 Relationship Specialty Start Date End Date Lawrence Howard, DO [address] [place] [address] PCP - General Family Practice 05/18/14 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 Relationship Specialty Start Date End Date Lawrence Howard, DO [address] [place] [address] PCP - General Family Practice 05/18/14 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 Relationship Specialty Start Date End Date Lawrence Howard, DO [address] [place] [address] PCP - General Family Practice 05/18/14 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 Relationship Specialty Start Date End Date Lawrence Howard, DO [address] [place] [address] PCP - General Family Medicine 05/18/14 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 Relationship Specialty Start Date End Date Lawrence Howard, DO [address] [place] [address] PCP - General Family Medicine 05/18/14 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 Relationship Specialty Start Date End Date Lawrence Howard, DO [address] [place] [address] PCP - General Family Medicine 05/18/14 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 Relationship Specialty Start Date End Date Lawrence Howard, DO [address] [place] [address] PCP - General Family Medicine 05/18/14 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 Relationship Specialty Start Date End Date Lawrence Howard, DO [address] [place] [address] PCP - General Family Medicine 05/18/14 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 Relationship Specialty Start Date End Date Lawrence Howard, DO [address] [place] [address] PCP - General Family Medicine 05/18/14 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 Relationship Specialty Start Date End Date Lawrence Howard, DO [address] [place] [address] PCP - General Family Medicine 05/18/14 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 Relationship Specialty Start Date End Date Lawrence Howard, DO [address] [place] [address] PCP - General Family Medicine 05/18/14 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 Relationship Specialty Start Date End Date Lawrence Howard, DO [address] [place] [address] PCP - General Family Medicine 05/18/14 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 Relationship Specialty Start Date End Date Lawrence Howard, DO [address] [place] [address] PCP - General Family Medicine 05/18/14 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 Relationship Specialty Start Date End Date Lawrence Howard, DO [address] [place] [address] PCP - General Family Medicine 05/18/14 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 Relationship Specialty Start Date End Date Lawrence Howard, DO [address] [place] [address] PCP - General Family Medicine 05/18/14 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 Relationship Specialty Start Date End Date Lawrence Howard, DO [address] [place] [address] PCP - General Family Medicine 05/18/14 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 Relationship Specialty Start Date End Date Lawrence Howard, DO [address] [place] [address] PCP - General Family Medicine 05/18/14 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 Relationship Specialty Start Date End Date Lawrence Howard, DO [address] [place] [address] PCP - General Family Medicine 05/18/14 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 Relationship Specialty Start Date End Date Lawrence Howard, DO [address] [place] [address] PCP - General Family Medicine 05/18/14 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 Relationship Specialty Start Date End Date Lawrence Howard, DO [address] [place] [address] PCP - General Family Medicine 05/18/14 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 Relationship Specialty Start Date End Date Lawrence Howard, DO [address] [place] [address] PCP - General Family Medicine 05/18/14 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 Relationship Specialty Start Date End Date Lawrence Howard, DO [address] [place] [address] PCP - General Family Medicine 05/18/14 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 Relationship Specialty Start Date End Date Lawrence Howard, DO [address] [place] [address] PCP - General Family Medicine 05/18/14 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 Relationship Specialty Start Date End Date Lawrence Howard, DO [address] [place] [address] PCP - General Family Medicine 05/18/14 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 Relationship Specialty Start Date End Date Lawrence Howard, DO [address] [place] [address] PCP - General Family Medicine 05/18/14 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 Relationship Specialty Start Date End Date Lawrence Howard DO [address] [place] [address] PCP - General Family Medicine 05/18/14 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 Relationship Specialty Start Date End Date Lawrence Howard DO [address] [place] [address] PCP - General Family Medicine 05/18/14 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 Relationship Specialty Start Date End Date Lawrence Howard DO [address] [place] [address] PCP - General Family Medicine 05/18/14 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 Relationship Specialty Start Date End Date Lawrence Howard DO [address] [place] [address] PCP - General Family Medicine 05/18/14 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 Relationship Specialty Start Date End Date Lawrence Howard DO [address] [place] [address] PCP - General Family Medicine 05/18/14 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 Relationship Specialty Start Date End Date Lawrence Howard DO [address] [place] [address] PCP - General Family Medicine 05/18/14 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 Relationship Specialty Start Date End Date Lawrence Howard DO [address] [place] [address] PCP - General Family Medicine 05/18/14 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 Relationship Specialty Start Date End Date Lawrence Howard DO [address] [place] [address] PCP - General Family Medicine 05/18/14 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 Relationship Specialty Start Date End Date Lawrence Howard DO [address] [place] [address] PCP - General Family Medicine 05/18/14 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 Relationship Specialty Start Date End Date Lawrence Howard DO [address] [place] [address] PCP - General Family Medicine 05/18/14 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 Relationship Specialty Start Date End Date Lawrence Howard DO [address] [place] [address] PCP - General Family Medicine 05/18/14 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 Relationship Specialty Start Date End Date Lawrence Howard DO [address] [place] [address] PCP - General Family Medicine 05/18/14 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 Relationship Specialty Start Date End Date Lawrence Howard DO [address] [place] [address] PCP - General Family Medicine 05/18/14 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 Relationship Specialty Start Date End Date Lawrence Howard DO [address] [place] [address] PCP - General Family Medicine 05/18/14 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 Relationship Specialty Start Date End Date Lawrence Howard DO [address] [place] [address] PCP - General Family Medicine 05/18/14 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 Relationship Specialty Start Date End Date Lawrence Howard DO [address] [place] [address] PCP - General Family Medicine 05/18/14 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 Relationship Specialty Start Date End Date Lawrence Howard DO [address] [place] [address] PCP - General Family Medicine 05/18/14 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 Relationship Specialty Start Date End Date Lawrence Howard DO [address] [place] [address] PCP - General Family Medicine 05/18/14 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 Relationship Specialty Start Date End Date Lawrence Howard DO [address] [place] [address] PCP - General Family [facility] 05/18/14 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 Relationship Specialty Start Date End Date Lawrence Howard, [address] [place] [address] PCP - General Family Medicine 05/18/14 FOR RECORDS PERTAINING TO PATIENTS WHO ARE OR HAVE BEEN ENROLLED IN A CHEMICAL DEPENDENCY/SUBSTANCEABUSE PROGRAM, SOME INFORMATION MAY BE OMITTED. This clinical summary was aggregated from multiple sources. Caution should be exercised in using it in the provision of clinical care. This summary normalizes information from multiple sources, and as a consequence, information in this document may materially change the coding, format and clinical context of patient data. In addition, data may be omitted in some cases. CLINICAL DECISIONS SHOULD BE BASED ON THE PRIMARY CLINICAL RECORDS. [facility]. provides no warranty or guarantee of the accuracy or completeness of information in this document.
[2023-11-09 12:33] LABS: Absolute Lymphocyte Count 1.39 X10^3/uL (0.83-4.51); Absolute Neutrophil Count 3.5 X10^3/uL (2.0-7.7); Basophil# 0.03 X10^3/uL; Basophil% 0.5 % (0-1); Eosinophil# 0.17 X10^3/uL; Hematocrit 35.8 % (37-47); Hemoglobin 11.4 g/dL (12.0-15.0); Lymphocyte # 1.39 X10^3/ul (0.83-4.51); Lymphocyte % 24.8 % (19-41); Mean Corp Hgb Conc 31.8 g/dL (32-36); Mean Corpuscular Hgb 29.7 pg (27.0-32.0); Mean Corpuscular Volume 93.2 fL (81-99); Mean Platelet Vol. 10.8 fl (6.2-12.0); Monocyte# 0.52 X10^3/uL; Monocyte% 9.3 % (0-10); NRBC Flagged by Analyzer 0 % (0-5); Neutrophil # 3.47 X10^3/uL (2.7-7.7); Platelet Count 221 K/mm3 (150-450); RBC Distribution Width CV 13.9 % (11.6-14.6); RBC Distribution Width SD 46.6 fl (35.1-43.9); Red Blood Count 3.84 M/mm3 (4.2-5.4); White Blood Count 5.6 K/mm3 (4.4-11.0)
[2023-11-09 13:06] LABS: ALB/GLOB Ratio 0.9 RATIO (0.9-2.4); AST(SGOT) 12 U/L (15-37); Alanine Aminotransfer ALT/SGPT 19 U/L (13-56); Albumin, Serum 3.2 g/dL (3.2-5.0); Alkaline Phosphatase 123 U/L (45-117); Anion Gap 6 (5-15); BUN 8 mg/dL (7-18); BUN/Creat Ratio 8.3 RATIO (10-20); Calcium,Total 8.2 mg/dL (8.5-10.1); Chloride 113 mmol/L (98-107); Creatinine, Serum 0.96 mg/dL (0.55-1.02); EST Glomerular Filtration Rate 65 mL/min (>60); Est Glom Filt Rate - Afr Amer 79 mL/min (>60); Globulin 3.5 g/dL (2.2-4.2); Glucose 86 mg/dL (74-106); Potassium 3.6 mmol/L (3.5-5.1); Protein, Total 6.7 g/dL (6.4-8.2); Sodium Level 141 mmol/L (136-145)
== END | disposition home or self-care (01) ==
LOC: MTLAB 11:01
PROVIDERS: PCP Student in an Organized Health Care Education/Training Program; Referring Provider Internal Medicine Rheumatology; Visit Provider Internal Medicine Rheumatology
DX: M06.4 Inflammatory polyarthropathy (principal); R76.8 Other specified abnormal immunological findings in serum; Z79.899 Other long term (current) drug therapy
CPT/HCPCS: 36415; 80053; 85025

== ENCOUNTER → 2024-02-05 | Outpatient (CLI) | payer BC, SELFPAY ==
[2024-02-05 09:59] LABS: Absolute Lymphocyte Count 1.25 X10^3/uL (0.83-4.51); Absolute Neutrophil Count 5.8 X10^3/uL (2.0-7.7); Basophil# 0.05 X10^3/uL; Basophil% 0.7 % (0-1); Eosinophil# 0.08 X10^3/uL; Eosinophils% 1.1 % (0-5); Hematocrit 36.1 % (37-47); Hemoglobin 11.7 g/dL (12.0-15.0); Lymphocyte # 1.25 X10^3/ul (0.83-4.51); Lymphocyte % 16.4 % (19-41); Mean Corp Hgb Conc 32.4 g/dL (32-36); Mean Corpuscular Hgb 29.5 pg (27.0-32.0); Mean Corpuscular Volume 91.2 fL (81-99); Mean Platelet Vol. 10.5 fl (6.2-12.0); Monocyte% 5.3 % (0-10); NRBC Flagged by Analyzer 0 % (0-5); Neutrophil # 5.78 X10^3/uL (2.7-7.7); Platelet Count 242 K/mm3 (150-450); RBC Distribution Width CV 13.8 % (11.6-14.6); Red Blood Count 3.96 M/mm3 (4.2-5.4); White Blood Count 7.6 K/mm3 (4.4-11.0)
[2024-02-05 10:30] LABS: ALB/GLOB Ratio 0.9 RATIO (0.9-2.4); AST(SGOT) 14 U/L (15-37); Alanine Aminotransfer ALT/SGPT 21 U/L (13-56); Albumin, Serum 3.3 g/dL (3.2-5.0); Alkaline Phosphatase 142 U/L (45-117); Anion Gap 5 (5-15); BUN 11 mg/dL (7-18); BUN/Creat Ratio 11.8 RATIO (10-20); Calcium,Total 8.7 mg/dL (8.5-10.1); Chloride 112 mmol/L (98-107); Creatinine, Serum 0.93 mg/dL (0.55-1.02); EST Glomerular Filtration Rate 67 mL/min (>60); Est Glom Filt Rate - Afr Amer 82 mL/min (>60); Globulin 3.7 g/dL (2.2-4.2); Glucose 108 mg/dL (74-106); Potassium 3.6 mmol/L (3.5-5.1); Sodium Level 140 mmol/L (136-145)
== END | disposition home or self-care (01) ==
LOC: MTLAB 07:56
PROVIDERS: PCP Student in an Organized Health Care Education/Training Program; Referring Provider Internal Medicine Rheumatology; Visit Provider Internal Medicine Rheumatology
DX: M06.4 Inflammatory polyarthropathy (principal); M79.7 Fibromyalgia; E05.00 Thyrotoxicosis with diffuse goiter without thyrotoxic crisis or storm; R76.8 Other specified abnormal immunological findings in serum; Z79.899 Other long term (current) drug therapy
CPT/HCPCS: 36415; 80053; 85025

== ENCOUNTER → 2024-05-23 | Outpatient (CLI) | payer OTHER, SELFPAY ==
[2024-05-23 12:17] LABS: Absolute Lymphocyte Count 1.47 X10^3/uL (0.83-4.51); Absolute Neutrophil Count 3.5 X10^3/uL (2.0-7.7); Basophil# 0.06 X10^3/uL; Basophil% 1.1 % (0-1); Eosinophil# 0.12 X10^3/uL; Eosinophils% 2.1 % (0-5); Hematocrit 38.5 % (37-47); Hemoglobin 12.5 g/dL (12.0-15.0); Lymphocyte # 1.47 X10^3/ul (0.83-4.51); Lymphocyte % 26.3 % (19-41); Mean Corp Hgb Conc 32.5 g/dL (32-36); Mean Corpuscular Hgb 30.1 pg (27.0-32.0); Mean Corpuscular Volume 92.8 fL (81-99); Mean Platelet Vol. 10.7 fl (6.2-12.0); Monocyte# 0.46 X10^3/uL; Monocyte% 8.2 % (0-10); NRBC Flagged by Analyzer 0 % (0-5); Neutrophil # 3.46 X10^3/uL (2.7-7.7); Neutrophil % 61.8 % (47-70); Platelet Count 236 K/mm3 (150-450); RBC Distribution Width CV 14.1 % (11.6-14.6); RBC Distribution Width SD 47.8 fl (35.1-43.9); Red Blood Count 4.15 M/mm3 (4.2-5.4); White Blood Count 5.6 K/mm3 (4.4-11.0)
[2024-05-23 12:45] LABS: AST(SGOT) 14 U/L (15-37); Alanine Aminotransfer ALT/SGPT 21 U/L (13-56); Albumin, Serum 3.6 g/dL (3.2-5.0); Alkaline Phosphatase 130 U/L (45-117); Anion Gap 6 (5-15); BUN 6 mg/dL (7-18); BUN/Creat Ratio 5.7 RATIO (10-20); Calcium,Total 8.4 mg/dL (8.5-10.1); Chloride 115 mmol/L (98-107); Creatinine, Serum 1.05 mg/dL (0.55-1.02); EST Glomerular Filtration Rate 59 mL/min (>60); Est Glom Filt Rate - Afr Amer 71 mL/min (>60); Free T3 2.6 pg/mL (2.18-3.98); Globulin 3.6 g/dL (2.2-4.2); Glucose 102 mg/dL (74-106); Potassium 3.6 mmol/L (3.5-5.1); Protein, Total 7.2 g/dL (6.4-8.2); Sodium Level 142 mmol/L (136-145); T4 Free Direct 0.92 ng/dL (0.76-1.46)
[2024-05-23 17:06] LABS: Thyroid Stim Hormone (TSH) 2.26 uIU/mL (0.358-3.74)
[2024-05-26 15:08] LABS: Thyroglobulin Antibody 286.6 IU/mL (0.0-0.9); Thyroid Peroxidase AB 316 IU/mL (0-34); Thyroid Stim Immunoglob 2.05 IU/L (0.00-0.55)
== END | disposition home or self-care (01) ==
PROVIDERS: PCP Student in an Organized Health Care Education/Training Program; Referring Provider Internal Medicine Rheumatology; Visit Provider Internal Medicine Rheumatology
DX: H05.20 Unspecified exophthalmos (principal); M06.4 Inflammatory polyarthropathy; Z79.899 Other long term (current) drug therapy; R76.8 Other specified abnormal immunological findings in serum; M19.072 Primary osteoarthritis, left ankle and foot; M79.7 Fibromyalgia
CPT/HCPCS: 36415; 80053; 84439; 84443; 84445; 84481; 85025; 86376; 86800

== ENCOUNTER → 2024-08-21 | Outpatient (CLI) | payer OTHER, SELFPAY ==
[2024-08-21 14:43] LABS: Absolute Lymphocyte Count 1.59 X10^3/uL (0.83-4.51); Absolute Neutrophil Count 4.2 X10^3/uL (2.0-7.7); Basophil# 0.05 X10^3/uL; Basophil% 0.8 % (0-1); Eosinophil# 0.18 X10^3/uL; Eosinophils% 2.7 % (0-5); Hemoglobin 11.1 g/dL (12.0-15.0); Lymphocyte # 1.59 X10^3/ul (0.83-4.51); Lymphocyte % 24.3 % (19-41); Mean Corp Hgb Conc 31.7 g/dL (32-36); Mean Corpuscular Hgb 29.8 pg (27.0-32.0); Mean Corpuscular Volume 93.8 fL (81-99); Mean Platelet Vol. 10.3 fl (6.2-12.0); Monocyte# 0.44 X10^3/uL; Monocyte% 6.7 % (0-10); NRBC Flagged by Analyzer 0 % (0-5); Neutrophil # 4.22 X10^3/uL (2.7-7.7); Neutrophil % 64.4 % (47-70); Platelet Count 234 K/mm3 (150-450); RBC Distribution Width CV 13.3 % (11.6-14.6); RBC Distribution Width SD 45.8 fl (35.1-43.9); Red Blood Count 3.73 M/mm3 (4.2-5.4); White Blood Count 6.6 K/mm3 (4.4-11.0)
[2024-08-21 15:38] LABS: AST(SGOT) 12 U/L (15-37); Alanine Aminotransfer ALT/SGPT 17 U/L (13-56); Albumin, Serum 3.2 g/dL (3.2-5.0); Alkaline Phosphatase 137 U/L (45-117); Anion Gap 6 (5-15); BUN 8 mg/dL (7-18); BUN/Creat Ratio 7.8 RATIO (10-20); Calcium,Total 8.3 mg/dL (8.5-10.1); Chloride 114 mmol/L (98-107); Creatinine, Serum 1.03 mg/dL (0.55-1.02); EST Glomerular Filtration Rate 60 mL/min (>60); Est Glom Filt Rate - Afr Amer 73 mL/min (>60); Globulin 3.3 g/dL (2.2-4.2); Glucose 100 mg/dL (74-106); Potassium 3.6 mmol/L (3.5-5.1); Protein, Total 6.5 g/dL (6.4-8.2); Sodium Level 142 mmol/L (136-145)
== END | disposition home or self-care (01) ==
LOC: MTLAB 13:47
PROVIDERS: PCP Student in an Organized Health Care Education/Training Program; Referring Provider Internal Medicine Rheumatology; Visit Provider Internal Medicine Rheumatology
DX: M06.4 Inflammatory polyarthropathy (principal); M19.072 Primary osteoarthritis, left ankle and foot; M79.7 Fibromyalgia; R76.8 Other specified abnormal immunological findings in serum; Z79.899 Other long term (current) drug therapy
CPT/HCPCS: 36415; 80053; 85025

== ENCOUNTER → 2024-11-20 | Outpatient (CLI) | payer OTHER, SELFPAY ==
[2024-11-20 15:32] LABS: Absolute Lymphocyte Count 1.99 X10^3/uL (0.83-4.51); Absolute Neutrophil Count 4.1 X10^3/uL (2.0-7.7); Basophil# 0.04 X10^3/uL; Basophil% 0.6 % (0-1); Eosinophil# 0.14 X10^3/uL; Eosinophils% 2.1 % (0-5); Hematocrit 34.2 % (37-47); Hemoglobin 11.3 g/dL (12.0-15.0); Lymphocyte # 1.99 X10^3/ul (0.83-4.51); Lymphocyte % 29.5 % (19-41); Mean Corpuscular Hgb 29.7 pg (27.0-32.0); Mean Corpuscular Volume 89.8 fL (81-99); Mean Platelet Vol. 10.9 fl (6.2-12.0); Monocyte# 0.44 X10^3/uL; Monocyte% 6.5 % (0-10); NRBC Flagged by Analyzer 0 % (0-5); Neutrophil # 4.07 X10^3/uL (2.7-7.7); Neutrophil % 60.3 % (47-70); Platelet Count 208 K/mm3 (150-450); RBC Distribution Width CV 13.7 % (11.6-14.6); RBC Distribution Width SD 44.4 fl (35.1-43.9); Red Blood Count 3.81 M/mm3 (4.2-5.4); White Blood Count 6.8 K/mm3 (4.4-11.0)
[2024-11-20 15:43] LABS: ALB/GLOB Ratio 1.1 RATIO (0.9-2.4); AST(SGOT) 14 U/L (15-37); Alanine Aminotransfer ALT/SGPT 28 U/L (13-56); Albumin, Serum 3.3 g/dL (3.2-5.0); Alkaline Phosphatase 138 U/L (45-117); Anion Gap 5 (5-15); BUN 8 mg/dL (7-18); BUN/Creat Ratio 7.4 RATIO (10-20); Calcium,Total 8.5 mg/dL (8.5-10.1); Chloride 113 mmol/L (98-107); Creatinine, Serum 1.08 mg/dL (0.55-1.02); EST Glomerular Filtration Rate 57 mL/min (>60); Est Glom Filt Rate - Afr Amer 69 mL/min (>60); Globulin 3.1 g/dL (2.2-4.2); Glucose 88 mg/dL (74-106); Potassium 3.6 mmol/L (3.5-5.1); Protein, Total 6.4 g/dL (6.4-8.2); Sodium Level 140 mmol/L (136-145)
== END | disposition home or self-care (01) ==
LOC: MTLAB 12:54
PROVIDERS: PCP Student in an Organized Health Care Education/Training Program; Referring Provider Internal Medicine Rheumatology; Visit Provider Internal Medicine Rheumatology
DX: M06.4 Inflammatory polyarthropathy (principal); M19.072 Primary osteoarthritis, left ankle and foot; M79.7 Fibromyalgia; R76.8 Other specified abnormal immunological findings in serum; Z79.899 Other long term (current) drug therapy
CPT/HCPCS: 36415; 80053; 85025